=== PATIENT | female | born 2000 | race African-American/Black ===

== ENCOUNTER 2024-06-30 21:37 | Observation (INO) | payer OTHER, BC, SELFPAY ==
[2024-06-30 22:00] VITALS: TEMP 36.8
[2024-06-30 22:03] VITALS: BP 118/69; PULSE 95
== END 2024-06-30 22:50 | disposition home or self-care (01) ==
PROVIDERS: Admitting Provider Obstetrics & Gynecology; Visit Provider Obstetrics & Gynecology
DX: O26.893 Other specified pregnancy related conditions, third trimester (principal); R10.30 Lower abdominal pain, unspecified; Z3A.32 32 weeks gestation of pregnancy
CPT/HCPCS: 59025; G0378; G0379

== ENCOUNTER 2024-07-26 20:12 | Outpatient (REF) | payer OTHER, BC, SELFPAY ==
--- OUTSIDE RECORDS SUMMARY | 2024-07-26 20:17 | XMS_ITS | CCD ---
Author Organization [facility] Inform ion Partnership [facility] Care Team Providers Care Moth Exterminator Name Role Phone Unallocated , Noms Provider Primary Care Provi ga JUDITH ESQUIVEL Attending Unavailable JUDITH ESQUIVEL Referring Unavailable JUDITH ESQUIVEL Attending Unavailable JUDITH ESQUIVEL Attending Unavailable JUDITH ESQUIVEL Attending Unavailable JUDITH ESQUIVEL Attending Unavailable JUDITH ESQUIVEL Attending Unavailable WILBER STONE Attending Unavailable JUDITH ESQUIVEL Attending Unavailable WILBER STONE Attending Unavailable Medications Current Medications Medication Drug Class(es) Dates Sig (Normalized) Sig (Original) cephalexin 500 mg oral capsule (6 sources) Cephalosporin Antibacterial Start: 04-08-2024 End: 04-18-2024 cephalexin (Keflex) 500 MG capsule Indications: Leukocytes in urine Take 1 capsule (500 mg) by mouth in the morning and 1 capsule (500 mg) at noon and 1 capsule (500 mg) in the evening and 1 capsule (500 mg) before bedtime. Do all this for 10 days. 40 capsule 04/08/2024 04/18/2024 Active Start: 03-09-2024 End: 03-19-2024 cephalexin (Keflex) 500 MG c apsule Indications: Pyuria Take 1 capsule (500 mg) by mouth in the morning and 1 capsule (500 mg) at noon and 1 capsule (500 mg) in the evening and 1 capsule (500 mg) before bedtime. Do all this for 10 days. 40 capsule 03/09/2024 03/19/2024 Active Start: 02-02-2024 End: 02-12-2024 cephalexin (Keflex) 500 MG c apsule Indications: Urinary tract infection without hematuria, site unspecified Take 1 capsule (500 mg) by mouth in the morning and 1 capsule (500 mg) at noon and 1 capsule (500 mg) in the evening and 1 capsule (500 mg) before bedtime. Do all this for 10 days. 40 capsule 02/02/2024 02/12/2024 ferrous sulfate 325 mg delayed release oral tablet (11 sources) Start: 05-15-2024 End: 05-15-2025 take 1 tablet by mouth at mealtime ferrous sulfate (Fe Tabs) 325 (65 Fe) MG EC tablet Indications: Anemia, unspecified type Take 1 tablet (325 mg) by mouth in the morning. Take with meals. Do not crush, chew, or split.. 90 tablet 3 05/15/2024 05/15/2025 Active ondansetron 4 mg disintegrating oral tablet (20 sources) Serotonin-3 Receptor Antagonist Start: 05-11-2024 ondansetron ODT (Zofran-ODT) 4 MG disintegrating tablet Indications: Nausea and vomiting, unspecified vomiting type Take every 6-8 hours as needed for nausea. 30 tablet 3 05/11/2024 Active Start: 04-01-2024 ondansetron OD T (Zofran-ODT) 4 MG disintegrating tablet Indications: Nausea and vomiting, unspecified vomiting type Take every 6-8 hours as needed for nausea. 30 tablet 3 04/01/2024 Active Start: 02-24-2024 take 1 tablet by mckayla th every eight hours for nausea ondansetron ODT (Zofran-ODT) 4 MG disintegrating tablet Indications: 14 weeks gestation of , Poor weight gain (0-17) , Nausea and vomiting, unspecified vomiting type Take 1 tablet (4 mg) by mouth every 8 (eight) hours if needed for nausea or vomiting Sublingual 30 tablet 7 02/24/2024 Active Start: 02-02-2024 ondansetron OD T (Zofran-ODT) 4 MG disintegrating tablet Indications: Nausea and vomiting, unspecified vomiting type Take every 6-8 hours as needed for nausea. 30 tablet 3 02/02/2024 Active Start: 02-02-2024 End: 02-02-2024 take 1 tablet by mouth every eight hours for nausea ondansetron (Zofran) 4 MG tablet Indications: 11 weeks gestation of Take 1 tablet (4 mg) by mouth every 8 (eight) hours if needed for nausea 20 tablet 3 02/02/2024 02/02/2024 Discontinued (Therapy completed) Vit-Fe Fumarate-FA ( 19) 29-1 MG chewable tablet (20 sources) Start: 02-02-2024 Vit-F e Fumarate-FA ( 19) 29-1 MG chewable tablet Indications: 11 weeks gestation of , Encounter for supervision of normal first in first trimester Chew 1 tablet Daily Chewable, please dispense what insurance will cover 90 tablet 3 02/02/2024 Active Problems Active Problems Problem Classification Problem Date Documented Da te Episodic/Chronic Administrative/social admission (2 sources) First encounter by subject; Translations: [Persons encountering health services in other specified circumstances] 05-31-2024 Episodic Deficiency and other anemia (1 source) Anemia; Translations: [Anemia, unspecified] 05-15-2024 Episodic Genitourinary symptoms and ill-defined conditions (6 sources) Leukocytes in urine; Translations: [Other abnormal findings in urine] 04-08-2024 Episodic Immunizations and screening for infectious disease (14 sources) Patient encounter status; Translations: [Encounter for screening for diabetes mellitus] 05-04-2024 Episodic Nausea and vomiting (12 sources) Nausea and vomiting; Translations: [Nausea with vomiting, unspecified] 04-08-2024 Episodic Other nutritional; endocrine; and metabolic disorders (10 sources) Childhood failure to gain weight; Translations: [Failure to thrive (child)] 04-07-2024 Episodic Other and delivery including normal (18 sources) Second trimester ; Translations: [Encounter for supervision of normal , unspecified, second trimester] 04-07-2024 Episodic Residual codes; unclassified (2 sources) Gestation period, 20 weeks; Translations: [20 weeks gestation of ] 04-07-2024 Episodic Residual codes; unclassified (2 sources) Gestation period, 24 weeks; Translations: [24 weeks gestation of ] 05-04-2024 Episodic Residual codes; unclassified (2 sources) Gestation period, 26 weeks; Translations: [26 weeks gestation of ] 05-19-2024 Episodic Residual codes; unclassified (2 sources) Gestation period, 28 weeks; Translations: [28 weeks gestation of ] 05-31-2024 Episodic Residual codes; unclassified (2 sources) Gestation period, 34 weeks; Translations: [34 weeks gestation of ] 07-12-2024 Episodic Past or Other Problems Problem Classification Problem Date Documented Da te Episodic/Chronic Diabetes mellitus without complication (2 sources) Ketonuria; Translations: [Acetonuria] 02-24-2024 Episodic Residual codes; unclassified (2 sources) Gestation period, 14 weeks; Translations: [14 weeks gestation of ] 02-23-2024 Episodic Residual codes; unclassified (2 sources) Gestation period, 11 weeks; Translations: [11 weeks gestation of ] 02-02-2024 Episodic Residual codes; unclassified (2 sources) Gestation period, 18 weeks; Translations: [18 weeks gestation of ] 02-02-2024 Episodic Residual codes; unclassified (2 sources) Gestation period, 16 weeks; Translations: [16 weeks gestation of ] 03-09-2024 Episodic Urinary tract infections (2 sources) Urinary tract infectious disease; Translations: [Urinary tract infection, site not specified] 02-02-2024 Episodic Results Test Name Value Interpretation Reference Range Facility Urinalysis macro (dipstick) panel (U)on 07-12-2024 Bilirubin, UA Negative Negative - 4(70) +++ mg/dL [facility] Blood, UA Negative Negative - 50 Choco/mcL [facility] Clarity, UA Clear [facility] Color, UA Yellow [facility] Glucose, UA Negative Negative - 1999(110) ++++ mg/dL [facility] Interpretation and review of laboratory results Abnormal [facility] Ketones, UA Negative Negative - 160(16) ++++ mg/dL [facility] Leukocytes, UA Positive Negative - 500+++ Abhishek/mcL [facility] Nitrite, UA Negative Negative - Positive [facility] pH, UA 7 5 - 9 [facility] Protein, UA Positive Negative - 2000(20) ++++ mg/dL [facility] Spec Grav, UA 1.025 1 - 1.03 [facility] Urobilinogen, UA 0.2 0.2 - 12 mg/dL [facility] Urinalysis macro (dipstick) panel (U)Ordered By: Cathy Ferreira on 05-19-2024 Bilirubin, UA Negative Negative - 4(70) +++ mg/dL [facility] Blood, UA Negative Negative - 50 Choco/mcL [facility] Clarity, UA Clear [facility] Color, UA Yellow [facility] Glucose, UA Negative Negative - 1999(110) ++++ mg/dL [facility] Interpretation and review of laboratory results Abnormal [facility] Ketones, UA Negative Negative - 160(16) ++++ mg/dL [facility] Leukocytes, UA Positive Negative - 500+++ Abhishek/mcL [facility] Nitrite, UA Negative Negative - Positive [facility] pH, UA 7.5 5 - 9 [facility] Protein, UA Negative Negative - 1999(20) ++++ mg/dL [facility] Spec Grav, UA 1.01 1 - 1.03 [facility] Urobilinogen, UA 1.0 0.2 - 12 mg/dL [facility] Urinalysis macro (dipstick) panel (U)on 05-04-2024 Bilirubin, UA Negative Negative - 4(70) +++ mg/dL [facility] Blood, UA Negative Negative - 50 Choco/mcL [facility] Clarity, UA Clear [facility] Color, UA Yellow [facility] Glucose, UA Negative Negative - 1999(110) ++++ mg/dL [facility] Interpretation and review of laboratory results Normal [facility] Ketones, UA Negative Negative - 160(16) ++++ mg/dL [facility] Leukocytes, UA Positive Negative - 500+++ Abhishek/mcL [facility] Nitrite, UA Negative Negative - Positive [facility] pH, UA 8 5 - 9 [facility] Protein, UA Negative Negative - 1999(20) ++++ mg/dL [facility] Spec Grav, UA 1.005 1 - 1.03 [facility] Urobilinogen, UA 1.0 0.2 - 12 mg/dL [facility] Urinalysis macro (dipstick) panel (U)on 04-08-2024 Bilirubin, UA Negative Negative - 4(70) +++ mg/dL [facility] Blood, UA Negative Negative - 50 Choco/mcL [facility] Clarity, UA Clear [facility] Color, UA Yellow [facility] Glucose, UA Negative Negative - 1999(110) ++++ mg/dL [facility] Interpretation and review of laboratory results Abnormal [facility] Ketones, UA Negative Negative - 160(16) ++++ mg/dL [facility] Leukocytes, UA Positive Negative - 500+++ Abhishek/mcL [facility] Nitrite, UA Negative Negative - Positive [facility] pH, UA 8.5 5 - 9 [facility] Protein, UA Negative Negative - 1999(20) ++++ mg/dL [facility] Spec Grav, UA 1.015 1 - 1.03 [facility] Urobilinogen, UA 1.0 0.2 - 12 mg/dL [facility] Urinalysis macro (dipstick) panel (U)Ordered By: Cathy Ferreira on 03-09-2024 Bilirubin, UA Negative Negative - 4(70) +++ mg/dL [facility] Blood, UA Negative Negative - 50 Choco/mcL [facility] Clarity, UA Clear [facility] Color, UA Yellow [facility] Glucose, UA Negative Negative - 1999(110) ++++ mg/dL [facility] Interpretation and review of laboratory results Abnormal [facility] Ketones, UA Negative Negative - 160(16) ++++ mg/dL [facility] Leukocytes, UA Positive Negative - 500+++ Abhishek/mcL [facility] Nitrite, UA Negative Negative - Positive [facility] pH, UA 8.5 5 - 9 [facility] Protein, UA Negative Negative - 1999(20) ++++ mg/dL [facility] Healthcare Spec Grav, UA 1.005 1 - 1.03 [facility] Urobilinogen, UA 1.0 0.2 - 12 mg/dL [facility] Urinalysis macro (dipstick) panel (U)on 02-24-2024 Bilirubin, UA Negative Negative - 4(70) +++ mg/dL [facility] Blood, UA Negative Negative - 50 Choco/mcL [facility] Healthcare Clarity, UA Clear [facility] Color, UA Yellow [facility] Glucose, UA Negative Negative - 1999(110) ++++ mg/dL [facility] Interpretation and review of laboratory results Abnormal [facility] Ketones, UA Negative Negative - 160(16) ++++ mg/dL [facility] Leukocytes, UA Positive Negative - 500+++ Abhishek/mcL [facility] Nitrite, UA Negative Negative - Positive [facility] pH, UA 8.0 5 - 9 [facility] Protein, UA Negative Negative - 1999(20) ++++ mg/dL [facility] Spec Grav, UA 1.010 1 - 1.03 [facility] Urobilinogen, UA 1.0 0.2 - 12 mg/dL [facility] Laboratory - Cytologyon Tent Assembler Cyto stain Nom (Cvx/Vag) [ID] [facility] Comment on above: CMB, CT(ASCP) CT Scr eening Location: [facility], [address] [place] [address] Cytology study comment Cyto stain Saravanan (Cvx/Vag) [Interp] [facility] Comment on above: This Pap test has be en evaluated with computer assisted technology. Microscopic observation Cyto stain Nom (Cvx) [facility] Comment on above: Cytology Results: Ne gative for intraepithelial lesion or malignancy. Specimen source Cyto stain N om (Cvx/Vag) [facility] Comment on above: None given Statement of adequacy Cyto stain (Cvx/Vag) [Interp] [facility] Comment on above: Satisfactory for vicente luation. Endocervical/transformation zone component absent. Laboratory - Microbiology an d Antimicrobial susceptibilityon 02-03-2024 HPV E6+E7 mRNA NITHYA+probe Ql (Cvx) Not detected Not Detected [facility] Comment on above: Methodology: Transcr iption-Mediated Amplification This assay detects E6/E7 viral messenger RNA (mRNA) from 14 high-risk HPV types (16,18,31,33,35,39,45,51,52,56,58,59,66,68). Cervical sources are required for HPV testing. If a vaginal source from a patient who has had a total hysterectomy with removal of cervix was submitted, please contact the testing laboratory for alternative testing options. For additional information, please refer to http://education.Heart [facility]/faq/[email or web address] (This link if provided for information/ educational purposes only.) No Panel Informationon 02-02 (ALWAYS MESSAGE) [facility] Comment on above: EXPLANATORY NOTE: The Pap is a screening test for cervical cancer. It is not a diagnostic test and is subject to false negative and false positive results. It is most reliable when a satisfactory sample, regularly obtained, is submitted with relevant clinical findings and history, and when the Pap result is evaluated along with historic and current clinical information. Clinical information [facility] Comment on above: None given Date of previous biopsy [facility] Comment on above: None given Date of previous PAP smear [facility] Comment on above: None given Last menstrual period start date [facility] Comment on above: None given Performing Organization Information Site ID: [id number] Name: [facility] Address: [place] [place] , [address] [place] [id number] Director: Ketan Sutherland MD [facility] Drugs of abuse panel Screen (U)on 02-02-2024 Amphetamines Ql (U) Negative [facility] Barbiturates Ql (U) Negative [facility] Benzodiazepines Ql (U) Negative NO [facility] Benzoylecgonine Ql (U) Negative NO [facility] Carboxy tetrahydrocannabinol (Mec) [Mass/Mass] Negative [facility] Interpretation and review of laboratory results Normal [facility] Methadone (U) [Mass/Vol] Negative [facility] Methylenedioxymethamphetamin e Screen Ql (U) Negative [facility] Morphine (U) [Mass/Vol] Negative [facility] Opiates Ql (U) Negative [facility] oxyCODONE Ql (U) Negative [facility] Phencyclidine Ql (U) Negative [facility] Reference Lab Test ID Negative [facility] Tricyclic antidepressants [Mass/Vol] Negative [facility] Laboratory - Specimen inform ationon 02-02-2024 Specimen type Nom (Spec) swab [facility] No Panel Informationon 02-01 GONORRHOEAE DNA(PCR) Negative [facility] Interpretation and review of laboratory results Normal [facility] Urinalysis macro (dipstick) panel (U)Ordered By: Cathy Ferreira on 02-02-2024 Bilirubin, UA Negative Negative - 4(70) +++ mg/dL [facility] Blood, UA Negative Negative - 50 Choco/mcL [facility] Clarity, UA Clear [facility] Color, UA Yellow [facility] Glucose, UA Negative Negative - 1999(110) ++++ mg/dL [facility] Interpretation and review of laboratory results Abnormal [facility] Ketones, UA Positive Negative - 160(16) ++++ mg/dL [facility] Leukocytes, UA Positive Negative - 500+++ Abhishek/mcL [facility] Nitrite, UA Negative Negative - Positive [facility] pH, UA 6.5 5 - 9 [facility] Protein, UA Negative Negative - 1999(20) ++++ mg/dL [facility] Spec Grav, UA 1.025 1 - 1.03 [facility] Urobilinogen, UA 1.0 0.2 - 12 mg/dL [facility] Vital Signs Date Time Vital Sign Value Performing Clinician Jesusi lity 07-12-2024 14:28-0500 Body mass index (BMI) [Ratio] 35.08 kg/m2 Wilber Bertha DO Work Phone: [facility] 07-12-2024 14:28-0500 Body weight 101.61 kg Wilber Bertha DO Work Phone: [facility] 07-12-2024 14:28-0500 Diastolic blood pressure 74 mm[Hg] Wilber Bertha DO Work Phone: [facility] 07-12-2024 14:28-0500 Systolic blood pressure 122 mm[Hg] Wilber Bertha DO Work Phone: [facility] 05-19-2024 14:36-0500 Body mass index (BMI) [Ratio] 32.73 kg/m2 Judith Esquivel MD Work Phone: [facility] 05-19-2024 14:36-0500 Body weight 94.8 kg Judith Esquivel MD Work Phone: [facility] 05-19-2024 14:36-0500 Diastolic blood pressure 60 mm[Hg] Judith Esquivel MD Work Phone: [facility] 05-19-2024 14:36-0500 Systolic blood pressure 98 mm[Hg] Judith Esquivel MD Work Phone: [facility] 05-04-2024 16:26-0500 Body mass index (BMI) [Ratio] 32.42 kg/m2 Judith Esquivel MD Work Phone: [facility] 05-04-2024 16:26-0500 Body weight 93.89 kg Judith Esquivel MD Work Phone: [facility] 05-04-2024 16:26-0500 Diastolic blood pressure 58 mm[Hg] Judith Esquivel MD Work Phone: [facility] 05-04-2024 16:26-0500 Systolic blood pressure 100 mm[Hg] Judith Esquivel MD Work Phone: [facility] 04-08-2024 08:23-0400 Body mass index (BMI) [Ratio] 30.85 kg/m2 Judith Esquivel MD Work Phone: [facility] 04-08-2024 08:23-0400 Body weight 89.36 kg Judith Esquivel MD Work Phone: [facility] 04-08-2024 08:23-0400 Diastolic blood pressure 62 mm[Hg] Judith Esquivel MD Work Phone: [facility] 04-08-2024 08:23-0400 Systolic blood pressure 100 mm[Hg] Judith Esquivel MD Work Phone: [facility] 03-09-2024 08:53-0400 Body mass index (BMI) [Ratio] 29.76 kg/m2 Judith Esquivel MD Work Phone: [facility] 03-09-2024 08:53-0400 Body weight 86.18 kg Judith Esquivel MD Work Phone: [facility] 03-09-2024 08:53-0400 Diastolic blood pressure 60 mm[Hg] Judith Esquivel MD Work Phone: [facility] 03-09-2024 08:53-0400 Systolic blood pressure 100 mm[Hg] Judith Esquivel MD Work Phone: [facility] 02-24-2024 09:01-0400 Body mass index (BMI) [Ratio] 29.44 kg/m2 Judith Esquivel MD Work Phone: [facility] 02-24-2024 09:01-0400 Body weight 85.28 kg Judith Esquivel MD Work Phone: [facility] 02-24-2024 09:01-0400 Diastolic blood pressure 58 mm[Hg] Judith Esquivel MD Work Phone: [facility] 02-24-2024 09:01-0400 Systolic blood pressure 98 mm[Hg] Judith Esquivel MD Work Phone: [facility] 02-02-2024 13:15-0400 Body height 170.2 cm Judith Esquivel MD Work Phone: [facility] 02-02-2024 12:55-0400 Body mass index (BMI) [Ratio] 29.76 kg/m2 Judith Esquivel MD Work Phone: [facility] 02-02-2024 12:55-0400 Body weight 86.18 kg Judith Esquivel MD Work Phone: [facility] 02-02-2024 12:55-0400 Diastolic blood pressure 68 mm[Hg] Judith Esquivel MD Work Phone: [facility] 02-02-2024 12:55-0400 Systolic blood pressure 108 mm[Hg] Judith Esquivel MD Work Phone: [facility] Healthcare Encounters Encounter Date Encounter Type Care Provider Facility Start: 07-26-2024 End: 07-26-2024 Bamboo flowsheet Wilber Bertha DO Work Phone: [facility] Start: 07-26-2024 End: 07-26-2024 Bamboo flowsheet Wilber Bertha DO Work Phone: [facility] Start: 07-12-2024 End: 07-12-2024 Bamboo flowsheet Wilber Bertha DO Work Phone: [facility] Start: 07-12-2024 End: 07-12-2024 Bamboo flowsheet Wilber Bertha DO Work Phone: [facility] Start: 07-12-2024 End: 07-12-2024 flow sheet Wilber Bertha DO Work Phone: [facility] Comment on above: 34 weeks gestation o f ; Third trimester Start: 07-12-2024 End: 07-12-2024 ambulatory WILBER BERTHA Not Available Start: 06-28-2024 End: 06-28-2024 Bamboo flowsheet Mariya JIANG Work Phone: [facility] Start: 06-28-2024 End: 06-28-2024 Bamboo flowsheet Mariya JIANG Work Phone: [facility] Start: 06-10-2024 End: 06-10-2024 ambulatory JUDITH ESQUIVEL Not Available Start: 06-10-2024 End: 06-10-2024 ambulatory JUDITH ESQUIVEL Not Available Start: 05-31-2024 End: 05-31-2024 Bamboo flowsheet Wilber Bertha DO Work Phone: [facility] Start: 05-31-2024 End: 05-31-2024 Bamboo flowsheet Wilber Bertha DO Work Phone: [facility] Start: 05-31-2024 End: 05-31-2024 flow sheet Wilber Bertha DO Work Phone: [facility] Comment on above: Encounter to [facility]; 28 weeks gestation of ; Third trimester Start: 05-31-2024 End: 05-31-2024 ambulatory WILBER BERTHA Not Available Start: 05-19-2024 End: 05-19-2024 flow sheet Judith Esquivel MD Work Phone: [facility] Comment on above: 26 weeks gestation o f ; Second trimester ; Poor weight gain (0-17); Nausea and vomiting, unspecified vomiting type Start: 05-19-2024 End: 05-19-2024 ambulatory JUDITH ESQUIVEL Not Available Start: 05-15-2024 End: 05-15-2024 Orders Only Judith Esquivel MD Work Phone: [facility] Comment on above: Anemia, unspecified type (Primary Dx) Start: 05-04-2024 End: 05-04-2024 flow sheet Judith Esquivel MD Work Phone: [facility] Comment on above: 24 weeks gestation o f ; Second trimester ; Poor weight gain (0-17); Nausea and vomiting, unspecified vomiting type; Screening for diabetes mellitus (DM); Leukocytes in urine Start: 05-04-2024 End: 05-04-2024 ambulatory JUDITH ESQUIVEL Not Available Start: 05-04-2024 End: 05-04-2024 Bamboo flowsja Esquivel MD Work Phone: [facility] Start: 05-04-2024 End: 05-04-2024 Bamboo esdras Esquivel MD Work Phone: [facility] Start: 04-08-2024 End: 04-08-2024 Bamboo flowsja Esquivel MD Work Phone: [facility] Start: 04-08-2024 End: 04-08-2024 Bamboo flowsja Esquivel MD Work Phone: [facility] Start: 04-08-2024 End: 04-08-2024 flow sheet Judith Esquivel MD Work Phone: [facility] Comment on above: 20 weeks gestation o f ; Second trimester ; Poor weight gain (0-17); Nausea and vomiting, unspecified vomiting type; Leukocytes in urine Start: 04-08-2024 End: 04-08-2024 ambulatory JUDITH ESQUIVEL Not Available Start: 04-05-2024 End: 04-05-2024 ambulatory JUDITH ESQUIVEL Not Available Start: 03-09-2024 End: 03-09-2024 Apolloboo esdras Esquivel MD Work Phone: [facility] Start: 03-09-2024 End: 03-09-2024 Bamboo flowsja Esquivel MD Work Phone: [facility] Start: 03-09-2024 End: 03-09-2024 flow sheet Judith Esquivel MD Work Phone: [facility] Comment on above: Pyuria (Primary Dx); 16 weeks gestation of ; Second trimester ; Poor weight gain (0-17); Nausea and vomiting, unspecified vomiting type; care, subsequent in first trimester; Screening for genetic disease carrier status Start: 03-09-2024 End: 03-09-2024 ambulatory JUDITH ESQUIVEL Not Available Start: 02-27-2024 End: 02-27-2024 ambulatory PENOLA SIERRA Not Available Start: 02-24-2024 End: 02-24-2024 Bamboo flowsheet Judith Esuqivel MD Work Phone: [facility] Start: 02-24-2024 End: 02-24-2024 Bamboo flowsja Esquivel MD Work Phone: [facility] Start: 02-24-2024 End: 02-24-2024 flow sheet Judith Esquivel MD Work Phone: [facility] Comment on above: Poor weight gain (0- 17) (Primary Dx); 14 weeks gestation of ; Second trimester ; Ketonuria; Nausea and vomiting, unspecified vomiting type Start: 02-24-2024 End: 02-24-2024 ambulatory JUDITH ESQUIVEL Not Available Start: 02-02-2024 End: 02-02-2024 Initial care visit Judith Esquivel MD Work Phone: [facility] Comment on above: GA: 11w1d Start: 02-02-2024 End: 02-02-2024 ambulatory JUDITH ESQUIVEL Not Available Start: 01-23-2024 End: 01-23-2024 ambulatory JUDITH ESQUIVEL Not Available Start: 01-09-2024 End: 01-09-2024 ambulatory JUDITH ESQUIVEL Not Available Procedures Date Procedure Procedure Detail Performing Clinician Start: 07-12-2024 Urnls dip stick/tabl et rgnt non-auto w/o micrscp Wilber Stone DO Work Phone: Start: 05-19-2024 Urnls dip stick/tabl et rgnt non-auto w/o micrscp Judith Esquivel MD Work Phone: Start: 05-04-2024 Urnls dip stick/tabl et rgnt non-auto w/o micrscp Judith Esquivel MD Work Phone: Start: 04-08-2024 Urnls dip stick/tabl et rgnt non-auto w/o micrscp Judith Esquivel MD Work Phone: Start: 03-09-2024 Urnls dip stick/tabl et rgnt non-auto w/o micrscp Judith Esquivel MD Work Phone: Start: 02-24-2024 Urnls dip stick/tabl et rgnt non-auto w/o micrscp Judith Esquivel MD Work Phone: Start: 02-02-2024 Chlamydia culture Olga Esquivel MD Work Phone: Start: 02-02-2024 Iadna chlamydia trachomatis amplified probe tq Judith Esquivel MD Work Phone: Start: 02-02-2024 Drug test prsmv read direct optical obs pr date Judith Esquivel MD Work Phone: Start: 02-02-2024 Urnls dip stick/tabl et rgnt non-auto w/o micrscp Judith Esquivel MD Work Phone: Start: 02-02-2024 THINPREP TIS PAP AND HPV MRNA E6/E7 Judith Esquivel MD Work Phone: Plan of Treatment Date Care Activity Detail Author Start: 07-26-2024 End: 07-26-2024 Patient encounter procedure 07/26/2024 1:00 PM EST Routine [facility] [address] [place] [id number] Wilber Stone DO [address] [place] [address] [facility] Start: 07-12-2024 End: 07-12-2024 Patient encounter procedure [facility] Comment on above: Arrived Start: 06-10-2024 End: 06-10-2024 Patient encounter procedure 06/10/2024 2:00 PM EST Routine [facility] [address] [place] [address] Judith Esquivel MD [address] [place] [address] [facility] Start: 06-10-2024 End: 06-10-2024 Professional / ancillary services management 06/10/2024 1:15 PM EST Ancillary Procedure [facility] [address] [place] [address] [facility] Start: 05-31-2024 End: 05-31-2024 Patient encounter procedure [facility] Comment on above: Arrived Start: 05-19-2024 End: 05-19-2024 Patient encounter procedure 05/19/2024 2:15 PM EST Routine [facility] [address] [place] [address] Judith Esquivel MD [address] [place] [address] [facility] Start: 05-19-2024 End: 05-19-2024 Professional / ancillary services management 05/19/2024 1:15 PM EST Ancillary Procedure [facility] [address] [place] [phone] [facility] Start: 05-04-2024 End: 05-04-2024 Patient encounter procedure [facility] Comment on above: 24 weeks gestation o f ; Second trimester ; Poor weight gain (0-17); Nausea and vomiting, unspecified vomiting type; Screening for diabetes mellitus (DM) Start: 04-08-2024 End: 04-08-2024 Patient encounter procedure 04/08/2024 8:15 AM EDT Routine [facility] [address] [place] [address] Judith Esquivel MD [address] [place] [address] 20 weeks gestation of ; Second trimester ; Poor weight gain (0-17) [facility] Comment on above: 20 weeks gestation o f ; Second trimester ; Poor weight gain (0-17) Start: 04-05-2024 End: 04-05-2024 Patient encounter procedure 04/05/2024 8:45 AM EDT Routine [facility] [address] [place] [address] Judith Esquivel MD [address] [facility] [place] [address] [facility] Start: 04-05-2024 End: 04-05-2024 Professional / ancillary services management 04/05/2024 8:00 AM EDT Ancillary Procedure [facility] [address] [facility] [place] [address] [facility] Start: 03-09-2024 End: 03-09-2025 Inheritest(R) Core Panel Inheritest(R) Core Panel Lab Routine care, subsequent in first trimester Screening for genetic disease carrier status Expected: 03/09/2024 (Approximate), Expires: 03/09/2025 [facility] Work Phone: Comment on above: Expected: 03/09/2024 (Approximate), Expires: 03/09/2025 Start: 03-09-2024 End: 03-09-2025 Maternity 21 Maternity 21 Lab Routine care, subsequent in first trimester Screening for genetic disease carrier status Expected: 03/09/2024 (Approximate), Expires: 03/09/2025 [facility] Comment on above: Expected: 03/09/2024 (Approximate), Expires: 03/09/2025 Start: 03-09-2024 End: 03-09-2024 Patient encounter procedure [facility] Comment on above: 16 weeks gestation o f ; Second trimester ; Poor weight gain (0-17); Nausea and vomiting, unspecified vomiting type Start: 02-29-2024 Influenza vaccination Influenza Vacc ine (#1) [facility] Start: 02-27-2024 End: 02-27-2024 Professional / ancillary services management 02/27/2024 8:00 AM EDT Ancillary Procedure [facility] [address] [facility] [place] [id number] [facility] Start: 02-24-2024 End: 02-24-2024 Patient encounter procedure 02/24/2024 8:45 AM EDT Routine [facility] [address] [facility] [place] [phone] Judith Esquivel MD [address] [facility] [address] [place] [address] 14 weeks gestation of ; Second trimester [facility] Comment on above: 14 weeks gestation o f ; Second trimester Bacteria identified in Urine by Culture Urine culture Microbiology Routine 20 weeks gestation of Second trimester Leukocytes in urine Ordered: 04/08/2024 [facility] Work Phone: Comment on above: Ordered: 04/08/2024 Bacteria identified in Urine by Culture Urine culture Microbiology Routine 24 weeks gestation of Second trimester Leukocytes in urine Ordered: 05/04/2024 [facility] Comment on above: Ordered: 05/04/2024 Hemoglobin [Mass/volume] in Blood Hemoglobin and hematocrit, blood Lab Routine Screening for diabetes mellitus (DM) Ordered: 05/04/2024 [facility] Work Phone: Comment on above: Ordered: 05/04/2024 Hemoglobin A1c/Hemoglobin.total in Blood Hemoglobin A1c Lab Routine 34 weeks gestation of Ordered: 07/12/2024 [facility] Work Phone: Comment on above: Ordered: 07/12/2024 Hepatitis C virus Ab [Presence] in Serum or Plasma by Immunoassay Hepatitis C antibody Lab Routine 34 weeks gestation of Ordered: 07/12/2024 [facility] Comment on above: Ordered: 07/12/2024 Measurement of gluco se 1 hour after glucose challenge for glucose tolerance test Glucose tolerance, 1 hour Lab Routine Screening for diabetes mellitus (DM) Ordered: 05/04/2024 [facility] Comment on above: Ordered: 05/04/2024 QHERIT(TM) EXPANDED CARRIER SCREEN QHERIT(TM) EXPANDED CARRIER SCREEN Lab Routine Screening for genetic disease carrier status Ordered: 02/02/2024 [facility] Comment on above: Ordered: 02/02/2024 QNATAL(R) ADVANCED QNATAL(R) ADV ANCED Lab Routine 18 weeks gestation of Screening for chromosomal anomalies by amniocentesis Ordered: 02/02/2024 [facility] Work Phone: Comment on above: Ordered: 02/02/2024 Payers Date Payer Category Payer Private Health Insurance [employer] [id number] 2023 Private Health Insurance [id number] 2020 [facility] BCBS [id number] [id number] 2020 Unknown BCBS BCBS [id number] 2020-Present [phone] [address] [place] [address] [id number] 2020 Unknown [id number] 1999 Unknown [id number] 79.2.1259 1999 Unknown [id number] [id number] 79.2.1259 1999 Unknown [id number] 2.16.840.1.465713.3.5 79.2.1259 1999 Unknown [id number] 2.16.840.1.214646.3.5 79.2.1258 1999 Unknown [id number] 2.16.840.1.244119.3.5 79.2.1259 1999 Unknown [id number] 2.16.840.1.078735.3.5 79.2.1258 1999 Unknown [id number] 2.16.840.1.892378.3.5 79.2.1258 1999 Unknown [id number] 2.16.840.1.500099.3.5 79.2.1258 1999 Unknown [id number] 2.16.840.1.661518.3.5 79.2.1258 1999 Unknown [id number] 2.16.840.1.035754.3.5 79.2.1258 1999 Unknown [id number] 2.16.840.1.744389.3.5 79.2.1258 1999 Unknown [id number] 2.16.840.1.715158.3.5 79.2.1258 1999 Unknown [id number] 2.16.840.1.973375.3.5 79.2.1258 1999 Unknown [id number] 2.16.840.1.481094.3.5 79.2.1258 1999 Unknown [id number] [id number] 79.2.1259 Social History Date Type Detail Facility Start: 01-09-2024 Tobacco smoking stat [facility] Never smoked tobacco [facility] Start: 01-09-2024 Tobacco use and exposure Smokeless t obacco non-user [facility] Start: 01-09-2024 End: 05-31-2024 Alcoholic beverage intake Ex-drinker (finding) [facility] Start: 01-09-2024 History of Social function [facility] Start: 01-09-2024 Tobacco use panel [facility] Start: 01-09-2024 Alcohol Comment caffeine intak e: occasionally [facility] Start: 11-30-2023 [facility] Start: 2000 Sex assigned at Not on file [facility] Clinical Notes 02-02-2024 to 07-12-2024 Marcella Haletico, [employer]ER [employer] - 07/12/2024 1:50 PM Reji Hernandez, JANNA - 05/31/2024 8:30 AM Andrew Esquivel MD - 05/19/2024 2:15 PM Andrew Esquivel MD - 05/15/2024 4:45 PM EST Note Date & Type Note Facility 07-12-2024 History of Presen t illness Narrative Reason for Appointment: Patient ID: Brigette Esquivel is a 23 y.o. female who presents for Routine Visit Patient presents today for Return OB appointment. MEDICATIONS Current Outpatient Medications Medication Instructions ferrous sulfate (FE TABS) 325 mg, Oral, Daily with breakfast, Do not crush, chew, or split. ondansetron ODT (Zofran-ODT) 4 MG disintegrating tablet Take every 6-8 hours as needed for nausea. Vit-Fe Fumarate-FA ( 19) 29-1 MG chewable tablet 1 tablet, Oral, Daily, Chewable, please dispense what insurance will cover ALLERGIES No Known Allergies PROBLEMS Active Ambulatory Problems Diagnosis Date Noted No Active Ambulatory Problems Resolved Ambulatory Problems Diagnosis Date Noted No Resolved Ambulatory Problems Past Medical History: Diagnosis Date Generalized anxiety disorder with panic attacks (CMS/HCC) Vaccine for VZV (varicella-zoster virus) HISTORY PAST MEDICAL HISTORY SOCIAL HISTORY Past Medical History: Diagnosis Date Generalized anxiety disorder with panic attacks (CMS/HCC) Vaccine for VZV (varicella-zoster virus) Social History Tobacco Use Smoking status: Never Smokeless tobacco: Never Vaping Use Vaping status: Never Used Substance Use Topics Alcohol use: Not Currently Comment: caffeine intake: occasionally Drug use: Not Currently Types: Marijuana Comment: stopped a couple months prior to per patient FAMILY HISTORY Family History Problem Relation Name Age of Onset Colon cancer Maternal Grandfather Genetic Disease Carrier Nephew sickle cell anemia SURGICAL HISTORY Past Surgical History: Procedure Laterality Date WISDOM TOOTH EXTRACTION 2018 bottom, 2020 top REVIEW OF SYSTEMS Review of Systems: Review of Systems All other systems reviewed and are negative. OBJECTIVE Objective: Physical Exam Constitutional: Appearance: Normal appearance. She is well-developed. Cardiovascular: Rate and Rhythm: Normal rate and regular rhythm. Pulmonary: Effort: Pulmonary effort is normal. Breath sounds: Normal breath sounds. Abdominal: General: Bowel sounds are normal. There is no distension. Palpations: Abdomen is soft. Tenderness: There is no abdominal tenderness. There is no guarding or rebound. Musculoskeletal: General: No swelling. Normal range of motion. Right lower leg: No edema. Left lower leg: No edema. Neurological: Mental Status: She is alert and oriented to person, place, and time. Skin: General: Skin is warm and dry. Psychiatric: Mood and Affect: Mood normal. Behavior: Behavior normal. Vitals and nursing note reviewed. Exam conducted with a energy efficiency finance manager present. Vitals: Estimated body mass index is 35.08 kg/m as calculated from the following: Height as of 24: 5' 7 . Weight as of this encounter: 224 lb. BP: 122/74 Patient's last menstrual period was 11/16/2023. ASSESSMENT & PLAN ICD-10-CM 1. 34 weeks gestation of Z3A.34 POCT urinalysis dipstick manually resulted Hemoglobin A1c Hepatitis C antibody 2. Third trimester Z34.93 Patient presents today for a routine obstetrics appointment. Patient is currently 34w1d with a Estimated Date of Delivery: 08/22/24. Patient to return to clinic in 1-2 weeks. Documented by Marcella Collier LPN on behalf of: Wilber Stone DO documented in this encounter [facility] 05-31-2024 History of Presen t illness Narrative Reason for Appointment: Patient ID: Brigette Esquivel is a 23 y.o. female who presents for Establish Care Patient presents today for to meet Dr Stone and Return OB appointment. MEDICATIONS Current Outpatient Medications Medication Instructions ferrous sulfate (FE TABS) 325 mg, Oral, Daily with breakfast, Do not crush, chew, or split. ondansetron ODT (Zofran-ODT) 4 MG disintegrating tablet Take every 6-8 hours as needed for nausea. Vit-Fe Fumarate-FA ( 19) 29-1 MG chewable tablet 1 tablet, Oral, Daily, Chewable, please dispense what insurance will cover ALLERGIES No Known Allergies PROBLEMS Active Ambulatory Problems Diagnosis Date Noted No Active Ambulatory Problems Resolved Ambulatory Problems Diagnosis Date Noted No Resolved Ambulatory Problems Past Medical History: Diagnosis Date Generalized anxiety disorder with panic attacks (CMS/HCC) Vaccine for VZV (varicella-zoster virus) HISTORY PAST MEDICAL HISTORY SOCIAL HISTORY Past Medical History: Diagnosis Date Generalized anxiety disorder with panic attacks (CMS/HCC) Vaccine for VZV (varicella-zoster virus) Social History Tobacco Use Smoking status: Never Smokeless tobacco: Never Vaping Use Vaping status: Never Used Substance Use Topics Alcohol use: Not Currently Comment: caffeine intake: occasionally Drug use: Not Currently Types: Marijuana Comment: stopped a couple months prior to per patient FAMILY HISTORY Family History Problem Relation Name Age of Onset Colon cancer Maternal Grandfather Genetic Disease Carrier Nephew sickle cell anemia SURGICAL HISTORY Past Surgical History: Procedure Laterality Date WISDOM TOOTH EXTRACTION 2018 bottom, 2020 top REVIEW OF SYSTEMS Review of Systems: Review of Systems Constitutional: Negative. HENT: Negative. Eyes: Negative. Respiratory: Negative. Cardiovascular: Negative. Gastrointestinal: Negative. Genitourinary: Negative. Musculoskeletal: Negative. Skin: Negative. Neurological: Negative. All other systems reviewed and are negative. Hematological: Negative. Endocrine: Negative. Allergic/Immunologic: Negative. OBJECTIVE Objective: Physical Exam Constitutional: Appearance: Normal appearance. She is well-developed. Cardiovascular: Rate and Rhythm: Normal rate and regular rhythm. Pulmonary: Effort: Pulmonary effort is normal. Breath sounds: Normal breath sounds. Abdominal: General: Bowel sounds are normal. There is no distension. Palpations: Abdomen is soft. Tenderness: There is no abdominal tenderness. There is no guarding or rebound. Musculoskeletal: General: No swelling. Normal range of motion. Right lower leg: No edema. Left lower leg: No edema. Neurological: Mental Status: She is alert and oriented to person, place, and time. Skin: General: Skin is warm and dry. Psychiatric: Mood and Affect: Mood normal. Behavior: Behavior normal. Vitals and nursing note reviewed. Exam conducted with a energy efficiency finance manager present. Vitals: Estimated body mass index is 32.73 kg/m as calculated from the following: Height as of 02/02/24: 5' 7 . Weight as of 11/20/24: 209 lb. BP: Patient's last menstrual period was 11/16/2023. ASSESSMENT & PLAN ICD-10-CM 1. Encounter to establish care Z76.89 2. 28 weeks gestation of Z3A.28 3. Third trimester Z34.93 Pt presents to meet Dr Stone, pt is 28 weeks at this time. All questions answered. Pt is deciding whether to come to [place] or [facility] for delivery- advised pt if she wants to deliver with Dr Stone transfer to our office at 32 weeks. Pt voiced understanding. Documented by Jana Hernandez LPN on behalf of: Wilber Stone DO documented in this encounter [facility] 05-19-2024 History of Presen t illness Narrative Subjective Brigette Esquivel is a 23 y.o. at 26w3d with a working estimated date of delivery of 08/22/2024, by Last Menstrual Period who presents for a routine visit. She denies vaginal bleeding, leakage of fluid, decreased movements, or contractions. Efw22% CL 38.1mm edc 08/22 Her is complicated by: Efw 38% Pt has had peds appt With [facility] The patient reports that her feet are not swollen and she has not been on her feet much lately. She denies experiencing any contractions, leakage of fluid, or vaginal bleeding. The patient's baby's weight is in the 22nd percentile, and she is eating well, consuming three meals and three snacks daily. She has gained 17 pounds during her and is not engaging in any exercises during the day. The patient had a glucose test and passed, but her iron levels were found to be low. She is taking iron pills, which were not covered by insurance, and is advised to take them with vitamin C to enhance absorption. She usually drinks orange or apple juice in the morning with her breakfast. The patient expresses a desire to prepare for a natural and has looked into a physical therapist who does spinning babies program She has considered finding a pp skip hoist operator, The patient inquires about collecting colostrum early and is advised to start at 35-36 weeks of . She is instructed not to engage in nipple stimulation as it can cause contractions and to look for passive collection cups for colostrum collection. The patient reports receiving her Tdap, COVID, and flu shots and plans to get her RSV shot at [facility]. Objective Physical Exam weight: 209 lb Expected Total Weight Gain: 11 lb-19 lb Pregravid BMI: 30.06 BP: 98/60 Labs Urine dip: Lab Results Component Value Date KETONESU Negative 05/19/2024 GLUCOSEUR Negative 05/19/2024 LEUKOCYTESUR Positive 05/19/2024 Lab Results Component Value Date HGB 10.5 (L) 05/14/2024 HCT 32.8 (L) 05/14/2024 Assessment/Plan Diagnoses and all orders for this visit: 26 weeks gestation of - Urine dip Second trimester Poor weight gain (0-17) Nausea and vomiting, unspecified vomiting type Follow up in 2 weeks for a routine visit. Glucose completed 2. growth: - weight at the 22nd percentile - Plan: a) Monitor closely. b) Repeat ultrasound in 3-4 weeks to assess growth and blood flow. 3. Swollen feet: - Patient denies significant swelling - Plan: a) Encourage patient to elevate feet when possible. b) Monitor for any changes. 4. Weight gain and exercise: - Patient has gained 17 pounds - Plan: a) Encourage patient to engage in light exercises during the day, as tolerated. 5. Iron deficiency: - Patient's iron levels are low - Plan: a) Recommend taking iron supplements with vitamin C to enhance absorption. 6. plan and skip hoist operator: - Patient interested in natural and considering a pp skip hoist operator - Plan: a) Discuss the benefits and potential drawbacks with the patient and her partner to make an informed decision. 7. Colostrum collection: - Plan: a) Advise patient to start collecting colostrum at 35-36 weeks gestation. b) Recommend passive collection cups to avoid nipple stimulation and potential contractions. 8. Immunizations: - Patient received Tdap, COVID, and flu shots - Plan: a) Encourage patient to get the RSV shot at [facility] as planned. Pt and wish to deliver with Dr Stone 9. Follow-up: - Dr Stone documented in this encounter [facility] 05-15-2024 History of Presen t illness Narrative Anwmia documented in this encounter [facility] 05-04-2024 History of Presen t illness Narrative Subjective Brigette Esquivel is a 23 y.o. at 24w2d with a working estimated date of delivery of 08/22/2024, by Last Menstrual Period who presents for a routine visit. She denies vaginal bleeding, leakage of fluid, decreased movements, or contractions. Her is complicated by: Efw 38% Glucose orders placed and information given Leukocytes in urine : culture sent The patient reports experiencing increased swelling in her feet after a busy weekend, which included cleaning the house, attending her sister's baby shower, and engaging in a significant amount of walking. She noticed the swelling on Friday and it has not subsided since. The patient is concerned about the potential for a during childbirth and wishes to have a vaginal , unless a is medically necessary. She expresses anxiety regarding the higher mortality rate for black women during childbirth and desires a healthcare provider who will listen to her concerns and respect her wishes. The patient's sister had a difficult childbirth experience, which involved an emergency due to the baby's shoulders getting stuck and oxygen deprivation. This has contributed to the patient's concerns about her own childbirth experience. The patient has recently started a new job and is inquiring about short-term disability medical leave, as she does not qualify for [facility]. Objective Physical Exam weight: 207 lb Expected Total Weight Gain: 11 lb-19 lb Pregravid BMI: 30.06 BP: 100/58 Labs Urine dip: Lab Results Component Value Date KETONESU Negative 05/04/2024 GLUCOSEUR Negative 05/04/2024 LEUKOCYTESUR Positive 05/04/2024 Lab Results Component Value Date HGB 11.9 01/23/2024 HCT 36.6 01/23/2024 No results found for: PAPPA , AFP , HCG , ESTRIOL , INHBA No results found for: GLUF , GLUT1 , CBROBUW2QM , [id number] Imaging The most recent ultrasound was performed on 04/05/2024 with a study GA of and EFW of . Assessment/Plan Continue vitamin. Labs reviewed. Follow up in 2 weeks for a routine visit. 1. : - Plan: a) Continue care and follow-up appointments as scheduled. b) Encourage patient to attend childbirth education classes and schedule a hospital tour. 2. Swollen feet: - Plan: a) Recommend elevating feet, drinking 72 ounces of water daily, limiting salt intake, and using support stockings. b) Monitor swelling during future visits and assess for any signs of preeclampsia. 3. Blood clot prevention during travel: - Plan: a) Advise taking baby aspirin and performing foot exercises during trips lasting more than 2 hours. b) Encourage staying hydrated during travel. 4. Vaccinations: - Plan: a) Tdap: Patient received Tdap a couple of months ago at [facility]. b) RSV: Recommend receiving RSV vaccine at health department or Dr. Montes's practice before 28-30 weeks gestation. c) COVID and flu: Vaccines available as desired. d) Advise patient's partner to check with Dr. Montes about receiving RSV vaccine. 5. plan and provider concerns: - Plan: a) Encourage patient to schedule an appointment with Dr. Stone at [facility] to discuss plan and address concerns regarding racial disparities in maternal care. b) Reassure patient that her concerns will be heard and respected during the process. c) Discuss the possibility of VBACs and C-sections as medically necessary. 6. Short-term disability paperwork: - Plan: a) Assist patient in completing and submitting short-term disability medical leave paperwork as needed. Subjective Brigette Esquivel is a 23 y.o. at 24w2d with a working estimated date of delivery of 08/22/2024, by Last Menstrual Period who presents for a routine visit. She denies vaginal bleeding, leakage of fluid, decreased movements, or contractions. Her is complicated by: Efw 38% Objective Physical Exam: weight: 207 lb Expected Total Weight Gain: 11 lb-19 lb Pregravid BMI: 30.06 BP: 100/58 Labs Urine Dip: Lab Results Component Value Date KETONESU Negative 05/04/2024 GLUCOSEUR Negative 05/04/2024 LEUKOCYTESUR Positive 05/04/2024 Lab Results Component Value Date HGB 11.9 01/23/2024 HCT 36.6 01/23/2024 Assessment/Plan Diagnoses and all orders for this visit: 24 weeks gestation of - Urine dip - Urine culture Second trimester - Urine culture Poor weight gain (0-17) Nausea and vomiting, unspecified vomiting type Screening for diabetes mellitus (DM) - Hemoglobin and hematocrit, blood - Glucose tolerance, 1 hour Leukocytes in urine - Urine culture Continue vitamin. Urine cx and rx prn results Expected mode of delivery VD Follow up in 1 week for a routine visit. documented in this encounter [facility] 04-08-2024 History of Presen t illness Narrative Subjective Brigette Esquivel is a 23 y.o. at 20w4d with a working estimated date of delivery of 08/22/2024, by Last Menstrual Period who presents for a routine visit. She denies vaginal bleeding, leakage of fluid, decreased movements, or contractions. Patient: The fetus is in the 38th percentile, The patient is adhering to a diet of 3 meals and 3 snacks regularly. The patient is informed that the gender of the baby is female. The patient expresses interest in receiving the Tdap vaccine at 28 weeks and the RSV vaccine. The patient complains of back pain for the last three to four weeks. The patient has a urinary tract infection (UTI) and reports the presence of white cells in the urine. The patient is not currently using any maternity bands for support. Her is complicated by: Efw 38% Objective Physical Exam weight: 197 lb Expected Total Weight Gain: 11 lb-19 lb Pregravid BMI: 30.06 BP: 100/62 Labs Urine dip: Lab Results Component Value Date KETONESU Negative 03/09/2024 GLUCOSEUR Negative 03/09/2024 LEUKOCYTESUR Positive 03/09/2024 Lab Results Component Value Date HGB 11.9 01/23/2024 HCT 36.6 01/23/2024 Assessment/Plan Diagnoses and all orders for this visit: 20 weeks gestation of - Urine dip Second trimester Poor weight gain (0-17) Nausea and vomiting, unspecified vomiting type 1. growth: - Ultrasound shows fetus at 38th percentile,- Plan: Repeat ultrasound in 6-8 weeks to monitor size. 2. Nutrition: - Patient reports eating 3 meals and 3 snacks regularly. - Plan: Encourage patient to continue with current nutritional habits. 3. gender: - Ultrasound reveals female fetus. 4. Immunizations: - Tdap vaccine recommended at 28 weeks. - RSV vaccine available at the health department. - Plan: Educate patient on the importance of immunizations and schedule vaccines accordingly. 5. Back pain: - Patient reports back pain for the last 3-4 weeks. - Plan: Refer patient to a physical therapist, recommend maternity band for support, and advise Tylenol for pain management. 6. Urinary tract infection (UTI): - Patient presents with white cells in urine and back pain. - Plan: Start patient on antibiotics based on symptoms and monitor for improvement. Urine cx ordered 7. Follow-up: - Schedule next office visit in 6-8 weeks to monitor growth, assess back pain, and discuss immunizations. Continue vitamin. Follow up in 2 weeks for a routine visit. Complaints of Back pain Asking about maternity 21 results documented in this encounter [facility] 03-09-2024 History of Presen t illness Narrative Subjective Brigettesharon Esquivel is a 23 y.o. at 16w2d with a working estimated date of delivery of 08/22/2024, by Last Menstrual Period who presents for a routine visit. She denies vaginal bleeding, leakage of fluid, decreased movements, or contractions. The patient presents with no chief complaint. The patient denies any urinary symptoms such as burning or urgency, but mentions increased urinary frequency. She has been advised to increase her protein intake and has been making efforts to do so, but has not yet reached the recommended 95 grams per day. The patient has been consuming protein bars, peanut butter with apples, and cheese sticks to increase her protein intake. She expresses concern about not meeting the protein goal but is reassured by the clinician. The patient is interested in undergoing the Q- chromosome test. Her is complicated by: PWG Objective Physical Exam weight: 190 lb Expected Total Weight Gain: 11 lb-19 lb Pregravid BMI: 30.06 BP: 100/60 Labs Urine dip: Lab Results Component Value Date KETONESU Negative 03/09/2024 GLUCOSEUR Negative 03/09/2024 LEUKOCYTESUR Positive 03/09/2024 Lab Results Component Value Date HGB 11.9 01/23/2024 HCT 36.6 01/23/2024 Assessment/Plan Diagnoses and all orders for this visit: 16 weeks gestation of - Urine dip Second trimester Poor weight gain (0-17) Nausea and vomiting, unspecified vomiting type Continue vitamin. 1. Nausea and vomiting - Patient reports no nausea or vomiting during the visit. - Patient reports feeling baby flutters 3. Urinary symptoms - Patient reports increased urinary frequency but no burning or urgency. - Plan: a) Send urine sample for culture. b) Prescribe Kefalex, to be taken four times a day for 7-10 days. c) If culture results are negative, the patient may stop taking the medication. 4. Weight gain and nutrition - Patient has gained weight and is working on increasing protein intake as per the health science specialist's recommendations. - Plan: a) Encourage the patient to continue incorporating protein-rich foods into their diet and not to overthink it. b) Reassess nutritional status at the next visit. 5. heart rate and movement - heart rate is 154 bpm, which is within the normal range. - Patient has not felt the baby move yet but is experiencing flutters. - 6. Q- testing - Patient expresses interest in undergoing Q- testing. - Plan: a) Order Q- testing and ensure the sample is sent to the correct lab. b) Instruct the patient to sign up for the program and inquire about the results communication process. 7. Follow-up - Schedule a follow-up appointment for an ultrasound and to reassess the patient's overall health and progress during . Follow up in 2 weeks for a routine visit. AUS 4 weeks documented in this encounter [facility] 02-24-2024 History of Presen t illness Narrative Leukocytes in urine Subjective Brigette Esquivel is a 23 y.o. at 14w2d with a working estimated date of delivery of 08/22/2024, by Last Menstrual Period who presents for a routine visit. She denies vaginal bleeding, leakage of fluid, decreased movements, or contractions. Patient: The patient reports that she usually takes her medication before getting up in the morning and generally does not experience any issues with them. She mentions one instance of vomiting after taking the medication but states that taking them before getting up helps prevent this. The patient admits to being very picky with her food choices and does not like breakfast foods. She has tried eating bagels but has grown tired of them. 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 Note was given after today's visit to allow 30 min. breaks daily for lunch. Her is complicated by: Poor weight gain Objective Physical Exam weight: 188 lb Expected Total Weight Gain: 11 lb-19 lb Pregravid BMI: 30.06 BP: 98/58 Heart Rate: 150 Fundal Height (cm): 16 cm Labs Urine dip: Lab Results Component Value Date KETONESU Negative 02/24/2024 GLUCOSEUR Negative 02/24/2024 LEUKOCYTESUR Positive 02/24/2024 Lab Results Component Value Date HGB 11.9 01/23/2024 HCT 36.6 01/23/2024 Assessment/Plan Diagnoses and all orders for this visit: 14 weeks gestation of - Urine dip Second trimester Continue vitamin. 1. Nausea and vomiting with medication intake: - Plan: a) Patient reports taking zofran medication before getting up in the morning helps prevent vomiting. Continue this practice to minimize nausea and vomiting. 2. Ketones in urine and poor dietary intake: - Plan: a) Refer patient to a combination machine tender for nutritional counseling and meal planning. b) Encourage patient to consume breakfast and consider meal replacement options such as protein drinks. c) Monitor ketone levels in urine during follow-up visits. Zofran pump offered and pt does not wish 5. Work-related eating challenges: - Plan: a) Collaborate with the combination machine tender to develop strategies for eating during work hours, including scheduling dedicated lunch breaks. Follow-up: - Plan: a) Schedule a follow-up appointment in two weeks for weight monitoring and to assess progress with dietary changes and weight gain Follow up in 2 weeks for a routine visit.. Pyuria and pt does not complain of symptoms Will await urine culture results for treatment US ordered to assess growth documented in this encounter [facility] 02-02-2024 History of Presen t illness Narrative Subjective Brigette Esquivel is a 23 y.o. at 11w1d with a working estimated date of delivery of 08/22/2024, by Last Menstrual Period who presents for a routine visit. She denies vaginal bleeding, leakage of fluid, decreased movements, or contractions. Her is complicated by: Objective Physical Exam weight: 190 lb Expected Total Weight Gain: Could not be calculated Pregravid BMI: Could not be calculated BP: 108/68 Labs Urine dip: Lab Results Component Value Date KETONESU Positive 02/02/2024 GLUCOSEUR Negative 02/02/2024 LEUKOCYTESUR Positive 02/02/2024 Lab Results Component Value Date HGB 11.9 01/23/2024 HCT 36.6 01/23/2024 PPW lost 2 pounds Assessment/Plan Diagnoses and all orders for this visit: 11 weeks gestation of - Urine dip Encounter for supervision of normal first in first trimester Screening for malignant neoplasm of cervix - THINPREP TIS PAP AND HPV MRNA E6/E7 Screen for STD (sexually transmitted disease) - CEPHEID CT/NG Encounter for drug screening - Rapid drug screen, urine Continue vitamin. 1. Nausea and vomiting in : - Plan: a) Continue Unisom and B6 as currently prescribed. b) Prescribe Zofran as a backup for nausea and vomiting control. c) Monitor weight gain and hydration status; consider IV hydration if needed. d) Follow up in 3 weeks for weight gain assessment. 2. care and monitoring: - Plan: a) Encourage a balanced diet and adequate caloric intake. b) Recommend alternative vitamins (chewables) due to intolerance of gummies. c) Perform a pap smear d) Discuss chromosomal testing Qnatal-Qherit options and insurance coverage. e) Schedule a 20-week ultrasound for anatomy assessment. f) Follow up every 4 weeks until 28 weeks, then every 2 weeks until the last month, and weekly thereafter. 3. precautions and education: - Plan: a) Advise on dietary restrictions (limited fish intake, no uncooked sushi, hot dogs, or cold cuts unless heated, no soft cheese, no exotic fish). b) Caution against hot tubs, saunas, heating pads, and heating blankets. c) Instruct to call the office for any vaginal bleeding or cramping. 4. Sexual activity during : - Plan: a) Reassure that sexual activity is safe unless experiencing vaginal bleeding or cramping. b) Educate on the potential for prostaglandin-induced uterine contractions and labor risk later in . 5. Weight gain during : - Plan: a) Encourage a healthy weight gain of 15 to 25 pounds throughout . b) Monitor weight closely and address any concerns during follow-up appointments. Follow up in 2 weeks for a routine visit. Positive Leukocytes and Ketones and Keflex ordered documented in this encounter [facility] Healthcare Evaluation note Diagnosis 20 weeks gestation of Second trimester state, incidental Poor weight gain (0-17) Failure to thrive Nausea and vomiting, unspecified vomiting type Leukocytes in urine Other nonspecific finding on examination of urine [facility] Diagnosis 24 weeks gestation of Second trimester state, incidental Poor weight gain (0-17) Failure to thrive Nausea and vomiting, unspecified vomiting type Screening for diabetes mellitus (DM) Screening for diabetes mellitus Leukocytes in urine Other nonspecific finding on examination of urine [facility] Diagnosis Anemia, unspecified type- Primary [facility] Diagnosis 26 weeks gestation of Second trimester state, incidental Poor weight gain (0-17) Failure to thrive Nausea and vomiting, unspecified vomiting type [facility] Diagnosis Encounter to establish care 28 weeks gestation of Third trimester state, incidental [facility] Diagnosis Poor weight gain (0-17)- Primary Failure to thrive 14 weeks gestation of Second trimester state, incidental Ketonuria Acetonuria Nausea and vomiting, unspecified vomiting type [facility] Diagnosis Urinary tract infection without hematuria, site unspecified- Primary 11 weeks gestation of Encounter for supervision of normal first in first trimester Screening for malignant neoplasm of cervix Screening for malignant neoplasm of the cervix Screen for STD (sexually transmitted disease) Screening examination for venereal disease Encounter for drug screening 18 weeks gestation of Screening for chromosomal anomalies by amniocentesis Screening for genetic disease carrier status Nausea and vomiting, unspecified vomiting type [facility] Diagnosis Pyuria- Primary Other nonspecific finding on examination of urine 16 weeks gestation of Second trimester state, incidental Poor weight gain (0-17) Failure to thrive Nausea and vomiting, unspecified vomiting type care, subsequent in first trimester Screening for genetic disease carrier status [facility] Diagnosis 34 weeks gestation of Third trimester state, incidental [facility] Consultation (Routine) - Authorized Specialty Diagnoses / Procedures Referred By Contac t Referred To Contact Nutrition / Behavioral Health Diagnoses Poor weight gain (0-17) Procedures [place] OFFICE/OUTPATIENT NEW HIGH MDM 60 MINUTES Judith Esquivel MD [address] [facility] [address] [place] [address] Shauna Phelps, , RDN, LD, CHES [address] [place], [place] Referral ID Status Reason Start Date Expiration Date Visits Requested Visits Authorized [id number] Authorized Consult and Treat 02/24/2024 08/22/2024 1 1 [facility] Summary Purpose Family History No Family History Records Found Advance Directives No Advanced Directives Records Found Additional Source Comments Care Teams (unrecognized sec tion and content) Moth Exterminator Relationship Specialty Start Date End Date Unallocated, Ricky Hernandez MD [address] [place] [id number] PCP - General Family Medicine 01/09/24 Moth Exterminator Relationship Specialty Start Date End Date Unallocated, [place] [address] PCP - General Family Medicine 01/09/24 Moth Exterminator Relationship Specialty Start Date End Date Unallocated, [place] [address] PCP - General Family Medicine 01/09/24 Moth Exterminator Relationship Specialty Start Date End Date Unallocated, [place] [address] PCP - General Family Medicine 01/09/24 Moth Exterminator Relationship Specialty Start Date End Date Unallocated, [place] [address] PCP - General Family Medicine 01/09/24 Moth Exterminator Relationship Specialty Start Date End Date Unallocated, [place] [address] PCP - General Family Medicine 01/09/24 Moth Exterminator Relationship Specialty Start Date End Date Unallocated, [place] [address] PCP - General Family Medicine 01/09/24 Moth Exterminator Relationship Specialty Start Date End Date Unallocated, [place] [address] PCP - General Family Medicine 01/09/24 Moth Exterminator Relationship Specialty Start Date End Date Unallocated, [place] [address] PCP - General Family Medicine 01/09/24 Moth Exterminator Relationship Specialty Start Date End Date Unallocated, [place] [address] PCP - General Family Medicine 01/09/24 Moth Exterminator Relationship Specialty Start Date End Date Unallocated, Ricky Hernandez MD [address] [place] [address] PCP - General Family Medicine 01/09/24 Moth Exterminator Relationship Specialty Start Date End Date Unallocated, Ricky Hernandez MD [address] [place] [address] PCP - General Family Medicine 01/09/24 Moth Exterminator Relationship Specialty Start Date End Date Unallocated, Ricky Hernandez MD [address] [place] [address] PCP - General Family Medicine 01/09/24 Moth Exterminator Relationship Specialty Start Date End Date Unallocated, Ricky Hernandez MD [address] [place] [address] PCP - General Family Medicine 01/09/24 Reason for Visit (unrecogniz ed section and content) Reason Comments Establish Care Specialty Diagnoses / Procedures Referred By Kristen t Referred To Contact Obstetrics and Gynecology Diagnoses Encounter for supervision of normal first , first trimester Procedures please check global maternity benefits EDC 08/22/24 Judith Esquivel MD [address] [facility] [address] [place] [address] Judith Esquivel MD [address] [facility] [address] [place] [address] Referral ID Status Reason Start Date Expiration Date V isits Requested Visits Authorized [id number] Closed Other 01/12/2024 07/10/2024 1 1 Reason Comments Routine Visit INFORMATION SOURCE (unrecogn ized section and content) DATE CREATED AUTHOR 07/15/[address] [facility] EPIC FOR RECORDS PERTAINING TO PATIENTS WHO ARE OR HAVE BEEN ENROLLED IN A CHEMICAL DEPENDENCY/SUBSTANCEABUSE PROGRAM, SOME INFORMATION MAY BE OMITTED. This clinical summary was aggregated from multiple sources. Caution should be exercised in using it in the provision of clinical care. This summary normalizes information from multiple sources, and as a consequence, information in this document may materially change the coding, format and clinical context of patient data. In addition, data may be omitted in some cases. CLINICAL DECISIONS SHOULD BE BASED ON THE PRIMARY CLINICAL RECORDS. [facility] [employer] [facility]. provides no warranty or guarantee of the accuracy or completeness of information in this document.
== END 2024-07-26 20:13 | disposition home or self-care (01) ==
LOC: LAB 20:12
PROVIDERS: Visit Provider Obstetrics & Gynecology
DX: Z34.93 Encounter for supervision of normal pregnancy, unspecified, third trimester (principal)
CPT/HCPCS: 36415; 87081

== ENCOUNTER 2024-08-17 21:26 | Inpatient (IN) | payer OTHER, BC, SELFPAY ==
--- OUTSIDE RECORDS SUMMARY | 2024-08-17 21:30 | XMS_ITS | CCD ---
Author Organization [facility] Care Team Providers Care [employer] Name Role Phone Unallocated MD, Noms Provider Primary Care Provi ga BERTHA, WILBER Attending Unavailable BERTHA, WILBER Attending Unavailable BERTHA, WILBER Attending Unavailable BERTHA, WILBER Referring Unavailable BERTHA, WILBER Attending Unavailable SIERRA, PENOLA P Attending Unavailable SIERRA, PENOLA P Referring Unavailable SIERRA, PENOLA P Attending Unavailable SIERRA, PENOLA P Attending Unavailable SIERRA, PENOLA P Attending Unavailable SIERRA, PENOLA P Attending Unavailable SIERRA, PENOLA P Attending Unavailable BERTHA, WILBER Attending Unavailable SIERRA, PENOLA P Attending Unavailable BERTHA, WILBER Attending Unavailable Medications Current Medications Medication Drug [...] for 10 days. 40 capsule 02/02/2024 02/12/2024 Vit-Fe Fumarate-FA ( 19) 29-1 MG chewable tablet (20 sources) Start: 02-02-2024 Vit-F e Fumarate-FA ( 19) 29-1 MG chewable tablet Indications: 11 weeks gestation of , Encounter for supervision of normal first in first trimester Chew 1 tablet Daily Chewable, please dispense what insurance will cover 90 tablet 3 02/02/2024 Active Completed/Discontinued Medications Medication Drug Class(es) Dates Sig (Normalized) Sig (Original) ferrous sulfate 325 mg delayed release oral tablet (17 sources) Start: 05-15-2024 End: 05-15-2025 take 1 tablet by mouth at mealtime ferrous sulfate (Fe Tabs) 325 (65 Fe) MG EC tablet Indications: Anemia, unspecified type Take 1 tablet (325 mg) by mouth in the morning. Take with meals. Do not crush, chew, or split.. 90 tablet 3 05/15/2024 08/03/2024 Discontinued ondansetron 4 mg disintegrating oral tablet (20 sources) Serotonin-3 Receptor Antagonist Start: 05-11-2024 End: 08-03-2024 ondansetron ODT (Zofran-ODT) 4 MG disintegrating tablet Indications: Nausea and vomiting, unspecified vomiting type Take every 6-8 hours as needed for nausea. 30 tablet 3 05/11/2024 08/03/2024 Discontinued Start: 04-01-2024 ondansetron OD T (Zofran-ODT) 4 [...] tablet 3 02/02/2024 02/02/2024 Discontinued (Therapy completed) Problems Active Problems Problem Classification Problem Date [...] for screening for diabetes mellitus] 05-04-2024 Episodic Immunizations and screening for infectious disease (2 sources) Viral screening status; Translations: [Encounter for screening for other viral diseases] 07-26-2024 Episodic Nausea and vomiting (12 sources) Nausea and vomiting; Translations: [Nausea with vomiting, unspecified] 04-08-2024 Episodic Other complications of (2 sources) size does not accord with dates; Translations: [Uterine size-date discrepancy, unspecified trimester] 08-11-2024 Episodic Other nutritional; endocrine; and metabolic disorders (10 sources) Childhood failure to gain weight; Translations: [Failure to thrive (child)] 04-07-2024 Episodic Other and delivery including normal (20 sources) Second trimester ; Translations: [Encounter for [...] [34 weeks gestation of ] 07-12-2024 Episodic Residual codes; unclassified (2 sources) Gestation period, 36 weeks; Translations: [36 weeks gestation of ] 07-26-2024 Episodic Residual codes; unclassified (2 sources) Gestation period, 37 weeks; Translations: [37 weeks gestation of ] 08-03-2024 Episodic Residual codes; unclassified (2 sources) Gestation period, 38 weeks; Translations: [38 weeks gestation of ] 08-11-2024 Episodic Past or Other Problems Problem Classification [...] Range Facility Urinalysis macro (dipstick) panel (U)on 08-03-2024 Bilirubin, UA Negative Negative - 4(70) +++ mg/dL [facility] Blood, UA Positive Negative - 50 Choco/mcL [facility] Comment on above: trace-intact Clarity, UA Clear [facility] Color, UA Yellow [facility] Glucose, UA Negative Negative - 2000(110) ++++ mg/dL [facility] Interpretation and review of laboratory results Abnormal [facility] Ketones, UA Positive Negative - 160(16) ++++ mg/dL [facility] Comment on above: trace Leukocytes, UA Positive Negative - 500+++ Abhishek/mcL [facility] Comment on above: large Nitrite, UA Negative Negative - Positive [facility] pH, UA 7 5 - 9 [facility] Protein, UA Positive Negative - 2000(20) ++++ mg/dL [facility] Comment on above: 30 Spec Grav, UA 1.02 1 - 1.03 [facility] Urobilinogen, UA 0.2 0.2 - 12 mg/dL [facility] ALL MISCELLANEOUS TESTon MISCELLANEOUS TEST COMMENT . [facility] Comment on above: Test Ordered: [id number] Strep Gp B Culture+Rflx Strep Gp B Culture+Rflx Positive [A ] CB Reference Range: Negative Centers for Disease Control and Prevention (CDC) and [place] Congress of Obstetricians and Gynecologists (ACOG) guidelines for prevention of group B streptococcal (GBS) disease specify co-collection of a vaginal and rectal swab specimen to maximize sensitivity of GBS detection. Per the CDC and ACOG, swabbing both the lower vagina and rectum substantially increases the yield of detection compared with sampling the vagina alone. Penicillin G, ampicillin, or cefazolin are indicated for intrapartum prophylaxis of GBS colonization. Reflex susceptibility testing should be performed prior to use of clindamycin only on GBS isolates from penicillin- allergic women who are considered a high risk for anaphylaxis. Treatment with vancomycin without additional testing is warranted if resistance to clindamycin is noted. Organism Identification Comment CB Reference Range: . Beta hemolytic Streptococcus, group B Clindamycin Resistant [A ] CB Reference Range: . Testing for inducible clindamycin resistance was performed using erythromycin and clindamycin in the D-zone test. Per the Centers for Disease Control and Prevention (CDC), erythromycin is no longer an acceptable alternative for intrapartum group B Streptococcus (GBS) prophylaxis for penicillin-allergic women at high risk for anaphylaxis. Performed at: [address] [id number] Policy Writer Typist: Quoc Domínguez PhD, Phone: [phone] Group B Streptococcus Colonization Detection Culture With Re [facility] Urinalysis macro (dipstick) panel (U)on 07-26-2024 Bilirubin, UA Negative Negative - 4(70) +++ mg/dL [facility] Blood, UA Positive Negative - 50 Choco/mcL [facility] Clarity, UA Clear [facility] Color, UA Yellow [facility] Glucose, UA Negative Negative - 1999(110) ++++ mg/dL [facility] Interpretation and review of laboratory results Abnormal [facility] Ketones, UA Negative Negative - 160(16) ++++ mg/dL [facility] Leukocytes, UA Positive Negative - 500+++ Abhishek/mcL [facility] Nitrite, UA Negative Negative - Positive [facility] pH, UA 7 5 - 9 [facility] Protein, UA Trace Negative - 1999(20) ++++ mg/dL [facility] Spec Grav, UA 1.025 1 - 1.03 [facility] Urobilinogen, UA 0.2 0.2 - 12 mg/dL [facility] Urinalysis macro (dipstick) panel (U)on 07-12-2024 Bilirubin, UA Negative Negative - 4(70) +++ mg/dL [facility] Blood, UA Negative Negative - 50 Choco/mcL [facility] Clarity, UA Clear [facility] Color, UA Yellow [facility] Glucose, UA Negative Negative - 1999(110) ++++ mg/dL [facility] Interpretation and review of laboratory results Abnormal [facility] Ketones, UA Negative Negative - 160(16) ++++ mg/dL [facility] Leukocytes, UA Positive Negative - 500+++ Abhishek/mcL [facility] Nitrite, UA Negative Negative - Positive [facility] pH, UA 7 5 - 9 [facility] Protein, UA Positive Negative - 1999(20) ++++ mg/dL [facility] Spec Grav, UA 1.025 1 - 1.03 [facility] Urobilinogen, UA 0.2 0.2 - 12 mg/dL [facility] Urinalysis macro (dipstick) panel (U)Ordered By: Cathy Ferreira on 05-19-2024 Bilirubin, UA Negative Negative - 4(70) +++ mg/dL [facility] Blood, UA Negative Negative - 50 Choco/mcL [facility] Clarity, UA Clear [facility] Color, UA Yellow [facility] Glucose, UA Negative Negative - 1999(110) ++++ mg/dL [facility] Interpretation and review of laboratory results Abnormal [facility] Ketones, UA Negative Negative - 160(16) ++++ mg/dL [facility] Leukocytes, UA Positive Negative - 500+++ Abhishek/mcL [facility] Nitrite, UA Negative Negative - Positive [facility] pH, UA 7.5 5 - 9 [facility] Protein, UA Negative Negative - 1999(20) ++++ mg/dL [facility] Spec Grav, UA 1.01 1 - 1.03 [facility] Urobilinogen, UA 1.0 0.2 - 12 mg/dL [facility] Urinalysis macro (dipstick) panel (U)on 05-04-2024 Bilirubin, UA Negative Negative - 4(70) +++ mg/dL [facility] Blood, UA Negative Negative - 50 Choco/mcL [facility] Clarity, UA Clear [facility] Color, UA Yellow [facility] Glucose, UA Negative Negative - 1999(110) ++++ mg/dL [facility] Interpretation and review of laboratory results Normal [facility] Ketones, UA Negative Negative - 160(16) ++++ mg/dL [facility] Leukocytes, UA Positive Negative - 500+++ Abhishek/mcL [facility] Nitrite, UA Negative Negative - Positive [facility] pH, UA 8 5 - 9 [facility] Protein, UA Negative Negative - 1999(20) ++++ mg/dL [facility] Spec Grav, UA 1.005 1 - 1.03 [facility] Urobilinogen, UA 1.0 0.2 - 12 mg/dL [facility] Urinalysis macro (dipstick) panel (U)on 04-08-2024 Bilirubin, UA Negative Negative - 4(70) +++ mg/dL [facility] Blood, UA Negative Negative - 50 Choco/mcL [facility] Clarity, UA Clear [facility] Color, UA Yellow [facility] Glucose, UA Negative Negative - 1999(110) ++++ mg/dL [facility] Interpretation and review of laboratory results Abnormal [facility] Ketones, UA Negative Negative - 160(16) ++++ mg/dL [facility] Leukocytes, UA Positive Negative - 500+++ Abhishek/mcL [facility] Nitrite, UA Negative Negative - Positive [facility] pH, UA 8.5 5 - 9 [facility] Protein, UA Negative Negative - 1999(20) ++++ mg/dL [facility] Spec Grav, UA 1.015 1 - 1.03 [facility] Urobilinogen, UA 1.0 0.2 - 12 mg/dL [facility] Urinalysis macro (dipstick) panel (U)Ordered By: Cathy Ferreira on 03-09-2024 Bilirubin, UA Negative Negative - 4(70) +++ mg/dL [facility] Blood, UA Negative Negative - 50 Choco/mcL [facility] Clarity, UA Clear [facility] Color, UA Yellow [facility] Glucose, UA Negative Negative - 1999(110) ++++ mg/dL [facility] Interpretation and review of laboratory results Abnormal [facility] Ketones, UA Negative Negative - 160(16) ++++ mg/dL [facility] Leukocytes, UA Positive Negative - 500+++ Abhishek/mcL [facility] Nitrite, UA Negative Negative - Positive [facility] pH, UA 8.5 5 - 9 [facility] Protein, UA Negative Negative - 1999(20) ++++ mg/dL [facility] Spec Grav, UA 1.005 1 - 1.03 [facility] Urobilinogen, UA 1.0 0.2 - 12 mg/dL [facility] Urinalysis macro (dipstick) panel (U)on 02-24-2024 Bilirubin, UA Negative Negative - 4(70) +++ mg/dL [facility] Blood, UA Negative Negative - 50 Choco/mcL [facility] Clarity, UA Clear [facility] Color, UA Yellow [facility] Glucose, UA Negative Negative - 1999(110) ++++ mg/dL [facility] Interpretation and review of laboratory results Abnormal [facility] Ketones, UA Negative Negative - 160(16) ++++ mg/dL [facility] Leukocytes, UA Positive Negative - 500+++ Abhishek/mcL [facility] Nitrite, UA Negative Negative - Positive [facility] pH, UA 8.0 5 - 9 [facility] Protein, UA Negative Negative - 1999(20) ++++ mg/dL [facility] Spec Grav, UA 1.010 1 - 1.03 [facility] Urobilinogen, UA 1.0 0.2 - 12 mg/dL [facility] - Cytologyon Operations Research Engineer Cyto stain Nom (Cvx/Vag) [ID] [facility] Comment on above: CMB, CT(ASCP) CT Scr eening Location: [facility], [address] [place] [address] Cytology study comment Cyto stain Saravanan (Cvx/Vag) [Interp] [facility] Comment on above: This Pap test has be en evaluated with computer assisted technology. Microscopic observation Cyto stain Nom (Cvx) [facility] Comment on above: Cytology Results: Ne gative for intraepithelial lesion or malignancy. Specimen source Cyto stain N om (Cvx/Vag) [facility] Comment on above: None given Statement of adequacy Cyto stain (Cvx/Vag) [Interp] [facility] Comment on above: Satisfactory for vicente luation. Endocervical/transformation zone component absent. Laboratory - Microbiology an d Antimicrobial susceptibilityon 02-03-2024 HPV E6+E7 mRNA NITHYA+probe Ql (Cvx) Not detected Not Detected [facility] Comment on above: Methodology: Transcr iption-Mediated Amplification This assay detects E6/E7 viral messenger RNA (mRNA) from 14 high-risk HPV types (16,18,31,33,35,39,45,51,52,56,58,59,66,68). Cervical sources are required for HPV testing. If a vaginal source from a patient who has had a total hysterectomy with removal of cervix was submitted, please contact the testing laboratory for alternative testing options. For additional information, please refer to http://education.iSTAR.EquityLancer/faq/NRF714z1 (This link if provided for information/ educational purposes only.) No Panel Informationon 02-02 (ALWAYS MESSAGE) [facility] Comment on above: EXPLANATORY NOTE: The [...] historic and current clinical information. Clinical information [facility] Comment on above: None given Date of previous biopsy [facility] Comment on above: None given Date of previous PAP smear [facility] Comment on above: None given Last menstrual period start date [facility] Comment on above: None given Performing Organization Information Site ID: [id number] Name: [id number] Address: [address] [place] [address], [address] [place] [id number] Director: Ketan Sutherland MD [facility] Drugs of abuse panel Screen (U)on 02-02-2024 Amphetamines Ql (U) Negative [facility] Barbiturates Ql (U) Negative [facility] Benzodiazepines Ql (U) Negative [facility] Benzoylecgonine Ql (U) Negative [facility] Carboxy tetrahydrocannabinol (Mec) [Mass/Mass] Negative [facility] Interpretation and review of laboratory results Normal [facility] Methadone (U) [Mass/Vol] Negative [facility] Methylenedioxymethamphetamin e Screen Ql (U) Negative [facility] Morphine (U) [Mass/Vol] Negative [facility] Opiates Ql (U) Negative [facility] oxyCODONE Ql (U) Negative [facility] Phencyclidine Ql (U) Negative [facility] Reference Lab Test ID Negative [facility] Tricyclic antidepressants [Mass/Vol] Negative [facility] Laboratory - Specimen inform ationon 02-02-2024 Specimen type Nom (Spec) swab [facility] No Panel Informationon 02-01 GONORRHOEAE DNA(PCR) Negative [facility] Interpretation and review of laboratory results Normal [facility] Urinalysis macro (dipstick) panel (U)Ordered By: Cathy Ferreira on 02-02-2024 Bilirubin, UA Negative Negative - 4(70) +++ mg/dL [facility] Blood, UA Negative Negative - 50 Choco/mcL [facility] Clarity, UA Clear [facility] Color, UA Yellow [facility] Glucose, UA Negative Negative - 2000(110) ++++ mg/dL [facility] Interpretation and review of laboratory results Abnormal [facility] Ketones, UA Positive Negative - 160(16) ++++ mg/dL [facility] Leukocytes, UA Positive Negative - 500+++ Abhishek/mcL [facility] Nitrite, UA Negative Negative - Positive [facility] pH, UA 6.5 5 - 9 [facility] Protein, UA Negative Negative - 1999(20) ++++ mg/dL [facility] Spec Grav, UA 1.025 1 - 1.03 [facility] Urobilinogen, UA 1.0 0.2 - 12 mg/dL [facility] Vital Signs Date Time Vital Sign Value Performing Clinician Faci lity 08-11-2024 15:52-0500 Body mass index (BMI) [Ratio] 37.87 kg/m2 Wilber Bertha DO Work Phone: [facility] 08-11-2024 15:52-0500 Body weight 109.68 kg Wilber Bertha DO Work Phone: [facility] 08-11-2024 15:52-0500 Diastolic blood pressure 76 mm[Hg] Wilber Bertha DO Work Phone: [facility] 08-11-2024 15:52-0500 Systolic blood pressure 114 mm[Hg] Wilber Bertha DO Work Phone: [facility] 08-03-2024 15:17-0500 Body mass index (BMI) [Ratio] 36.4 kg/m2 Wilber Bertha DO Work Phone: [facility] 08-03-2024 15:17-0500 Body weight 105.42 kg Wilber Bertha DO Work Phone: [facility] 08-03-2024 15:17-0500 Diastolic blood pressure 74 mm[Hg] Wilber Bertha DO Work Phone: [facility] 08-03-2024 15:17-0500 Systolic blood pressure 110 mm[Hg] Wilber Bertha DO Work Phone: [facility] 07-26-2024 13:20-0500 Body mass index (BMI) [Ratio] 35.71 kg/m2 Wilber Bertha DO Work Phone: [facility] 07-26-2024 13:20-0500 Body weight 103.42 kg Wilber Bertha DO Work Phone: [facility] 07-26-2024 13:20-0500 Diastolic blood pressure 78 mm[Hg] Wilber Bertha DO Work Phone: [facility] 07-26-2024 13:20-0500 Systolic blood pressure 124 mm[Hg] Wilber Bertha DO Work Phone: [facility] 07-12-2024 14:28-0500 Body mass index (BMI) [Ratio] 35.08 kg/m2 Wilber Bertha DO Work Phone: [facility] 07-12-2024 14:28-0500 Body weight 101.61 kg Wilber Bertha DO Work Phone: [facility] 07-12-2024 14:28-0500 Diastolic blood pressure 74 mm[Hg] Wilber Bertha DO Work Phone: [facility] 07-12-2024 14:28-0500 Systolic blood pressure 122 mm[Hg] Wilber Bertha DO Work Phone: [facility] 05-19-2024 14:36-0500 Body mass index (BMI) [Ratio] 32.73 kg/m2 Judith Esquivel MD Work Phone: [facility] 05-19-2024 14:36-0500 Body weight 94.8 kg Judith Esquivel MD Work Phone: [facility] 05-19-2024 14:36-0500 Diastolic blood pressure 60 mm[Hg] Judith Esquivel MD Work Phone: [facility] 05-19-2024 14:36-0500 Systolic blood pressure 98 mm[Hg] Judith Esquivel MD Work Phone: [facility] 05-04-2024 16:26-0500 Body mass index (BMI) [Ratio] 32.42 kg/m2 Judith Esquivel MD Work Phone: [facility] 05-04-2024 16:26-0500 Body weight 93.89 kg Judith Esquivel MD Work Phone: [facility] 05-04-2024 16:26-0500 Diastolic blood pressure 58 mm[Hg] Judith Esquivel MD Work Phone: [facility] 05-04-2024 16:26-0500 Systolic blood pressure 100 mm[Hg] Judith Esquivel MD Work Phone: [facility] 04-08-2024 08:23-0400 Body mass index (BMI) [Ratio] 30.85 kg/m2 Judith Esquivel MD Work Phone: [facility] 04-08-2024 08:23-0400 Body weight 89.36 kg Judith Esquivel MD Work Phone: [facility] 04-08-2024 08:23-0400 Diastolic blood pressure 62 mm[Hg] Judith Esquivel MD Work Phone: [facility] 04-08-2024 08:23-0400 Systolic blood pressure 100 mm[Hg] Judith Esquivel MD Work Phone: [facility] 03-09-2024 08:53-0400 Body mass index (BMI) [Ratio] 29.76 kg/m2 Judith Esquivel MD Work Phone: [facility] 03-09-2024 08:53-0400 Body weight 86.18 kg Judith Esquivel MD Work Phone: [facility] 03-09-2024 08:53-0400 Diastolic blood pressure 60 mm[Hg] Judith Esquivel MD Work Phone: [facility] 03-09-2024 08:53-0400 Systolic blood pressure 100 mm[Hg] Judith Esquivel MD Work Phone: [facility] 02-24-2024 09:01-0400 Body mass index (BMI) [Ratio] 29.44 kg/m2 Judith Esquivel MD Work Phone: [facility] 02-24-2024 09:01-0400 Body weight 85.28 kg Judith Esquivel MD Work Phone: [facility] 02-24-2024 09:01-0400 Diastolic blood pressure 58 mm[Hg] Judith Esquivle MD Work Phone: [facility] 08-27-2024 09:01-0400 Systolic blood pressure 98 mm[Hg] Judith Esquivel MD Work Phone: [facility] 02-02-2024 13:15-0400 Body height 170.2 cm Judith Esquivel MD Work Phone: [facility] 02-02-2024 12:55-0400 Body mass index (BMI) [Ratio] 29.76 kg/m2 Judith Esquivel MD Work Phone: [facility] 02-02-2024 12:55-0400 Body weight 86.18 kg Judith Esquivel MD Work Phone: [facility] 02-02-2024 12:55-0400 Diastolic blood pressure 68 mm[Hg] Judith Esquivel MD Work Phone: [facility] 02-02-2024 12:55-0400 Systolic blood pressure 108 mm[Hg] Judith Esquivel MD Work Phone: [facility] Encounters Encounter Date Encounter Type Care Provider Facility Start: 08-16-2024 End: 08-16-2024 ambulatory WILBER BERTHA Not Available Start: 08-11-2024 End: 08-11-2024 flow sheet Wilber Bertha DO Work Phone: [facility] Comment on above: 38 weeks gestation o f ; Third trimester ; size inconsistent with dates Start: 08-11-2024 End: 08-11-2024 ambulatory WILBER BERTHA Not Available Start: 08-11-2024 End: 08-11-2024 Bamboo flowsheet Wilber Bertha DO Work Phone: [facility] Start: 08-11-2024 End: 08-11-2024 Bamboo flowsheet Wilber Bertha DO Work Phone: [facility] Start: 08-03-2024 End: 08-03-2024 flow sheet Wilber Bertha DO Work Phone: [facility] Comment on above: 37 weeks gestation o f ; Third trimester Start: 08-03-2024 End: 08-03-2024 ambulatory WILBER BERTHA Not Available Start: 08-03-2024 End: 08-03-2024 Bamboo flowsheet Wilber Bertha DO Work Phone: [facility] Start: 08-03-2024 End: 08-03-2024 Bamboo flowsheet Wilber Bertha DO Work Phone: [facility] Start: 07-26-2024 End: 07-26-2024 Bamboo flowsheet Wilber Bertha DO Work Phone: [facility] Start: 07-26-2024 End: 08-01-2024 Bamboo flowsheet Wilber Bertha DO Work Phone: [facility] Start: 07-26-2024 End: 08-01-2024 [facility] Result Encounter Wilber Bertha DO Work Phone: [facility] Unsolicited Start: 07-26-2024 End: 07-26-2024 ambulatory WILBER BERTHA Not Available Start: 07-26-2024 End: 07-26-2024 flow sheet Wilber Bertha DO Work Phone: [facility] Comment on above: 36 weeks gestation o f ; Third trimester ; Need for hepatitis C screening test Start: 07-12-2024 End: 07-12-2024 Bamboo flowsheet Wilber Bertha DO Work Phone: [facility] Start: 07-12-2024 End: 07-12-2024 Bamboo flowsheet Wilber Bertha DO Work Phone: [facility] Start: 07-12-2024 End: 07-12-2024 flow sheet Wilber Bertha DO Work Phone: [facility] Comment on above: 34 weeks gestation o f ; Third trimester Start: 07-12-2024 End: 07-12-2024 ambulatory WILBER BERTHA Not Available Start: 06-28-2024 End: 06-28-2024 Bamboo flowsheet Mariya JIANG Work Phone: [facility] Start: 06-28-2024 End: 06-28-2024 Bamboo flowsheet Mariya JIANG Work Phone: [facility] Start: 06-10-2024 End: 06-10-2024 ambulatory JUDITH ESQUIVEL Not Available Start: 06-10-2024 End: 06-10-2024 ambulatory WILBER BERTHA Not Available Start: 05-31-2024 End: 05-31-2024 Bamboo flowsheet Wilber Bertha DO Work Phone: [facility] Start: 05-31-2024 End: 05-31-2024 Bamboo flowsheet Wilber Bertha DO Work Phone: [facility] Start: 05-31-2024 End: 05-31-2024 flow sheet Wilber Bertha DO Work Phone: [facility] Comment on above: Encounter to [facility]; 28 weeks gestation of ; Third trimester Start: 05-31-2024 End: 05-31-2024 ambulatory WILBER BERTHA Not Available Start: 05-19-2024 End: 05-19-2024 flow sheet Judith Esquivel MD Work Phone: [facility] Comment on above: 26 weeks gestation o f ; Second trimester ; Poor weight gain (0-17); Nausea and vomiting, unspecified vomiting type Start: 05-19-2024 End: 05-19-2024 ambulatory JUDITH ESQUIVEL Not Available Start: 05-15-2024 End: 05-15-2024 Orders Only Judith Esquivel MD Work Phone: [facility] Comment on above: Anemia, unspecified type (Primary Dx) Start: 05-04-2024 End: 05-04-2024 flow sheet Judith Esquivel MD Work Phone: [facility] Comment on above: 24 weeks gestation o f ; Second trimester ; Poor weight gain (0-17); Nausea and vomiting, unspecified vomiting type; Screening for diabetes mellitus (DM); Leukocytes in urine Start: 05-04-2024 End: 05-04-2024 ambulatory JUDITH ESQUIVEL Not Available Start: 05-04-2024 End: 05-04-2024 Bamboo flowsheet uJdith Esquivel MD Work Phone: [facility] Start: 05-04-2024 End: 05-04-2024 Bamboo flowsja Esquivel MD Work Phone: [facility] Start: 04-08-2024 End: 04-08-2024 Bamboo flowsja Esquivel MD Work Phone: [facility] Start: 04-08-2024 End: 04-08-2024 Bamboo flowsja Esquivel MD Work Phone: [facility] Start: 04-08-2024 End: 04-08-2024 flow sheet Judith Esquivel MD Work Phone: [facility] Comment on above: 20 weeks gestation o f ; Second trimester ; Poor weight gain (0-17); Nausea and vomiting, unspecified vomiting type; Leukocytes in urine Start: 04-08-2024 End: 04-08-2024 ambulatory JUDITH ESQUIVEL Not Available Start: 04-05-2024 End: 04-05-2024 ambulatory WILBER STONE Not Available Start: 03-09-2024 End: 03-09-2024 Bamboo flowsja Esquivel MD Work Phone: [facility] Start: 03-09-2024 End: 03-09-2024 Bamboo flowsja Esquivel MD Work Phone: [facility] Start: 03-09-2024 End: 03-09-2024 flow sheet Judith Esquivel MD Work Phone: [facility] Comment on above: Pyuria (Primary Dx); 16 weeks gestation of ; Second trimester ; Poor weight gain (0-17); Nausea and vomiting, unspecified vomiting type; care, subsequent in first trimester; Screening for genetic disease carrier status Start: 03-09-2024 End: 03-09-2024 ambulatory JUDITH ESQUIVEL Not Available Start: 02-27-2024 End: 02-27-2024 ambulatory WILBER BERTHA Not Available Start: 02-24-2024 End: 02-24-2024 Bamboo flowsheet Judith Esquivel MD Work Phone: [facility] Start: 02-24-2024 End: 02-24-2024 Bamboo flowsheet Judith Esquivel MD Work Phone: [facility] Start: 02-24-2024 End: 02-24-2024 flow sheet Judith Esquivel MD Work Phone: [facility] Comment on above: Poor weight gain (0- 17) (Primary Dx); 14 weeks gestation of ; Second trimester ; Ketonuria; Nausea and vomiting, unspecified vomiting type Start: 02-24-2024 End: 02-24-2024 ambulatory JUDITH ESQUIVEL Not Available Start: 02-02-2024 End: 02-02-2024 Initial care visit Judith Esquivel MD Work Phone: [facility] Comment on above: GA: 11w1d Start: 02-02-2024 End: 02-02-2024 ambulatory JUDITH ESQUIVEL Not Available Start: 01-23-2024 End: 01-23-2024 ambulatory WILBER BERTHA Not Available Start: 01-09-2024 End: 01-09-2024 ambulatory WILBER BERTHA Not Available Procedures Date Procedure Procedure Detail Performing Clinician Start: 08-03-2024 Urnls dip stick/tabl et rgnt non-auto w/o micrscp Wilber Bertha DO Work Phone: Start: 07-26-2024 Urnls dip stick/tabl et rgnt non-auto w/o micrscp Wilber Bertha DO Work Phone: Start: 07-26-2024 ALL MISCELLANEOUS TEST Wilber Bertha DO Work Phone: Start: 07-12-2024 Urnls dip stick/tabl et rgnt non-auto w/o micrscp Wilber Bertha DO Work Phone: Start: 05-19-2024 Urnls dip [...] MD Work Phone: Start: 02-02-2024 Iadna chlamydia trac homatis amplified probe tq Judith Esquivel MD Work Phone: Start: 02-02-2024 Drug test prsmv read direct optical obs pr date Judith Esquivel MD Work Phone: Start: 02-02-2024 Urnls dip stick/tabl et rgnt non-auto w/o micrscp Judith Esquivel MD Work Phone: Start: 02-02-2024 THINPREP TIS PAP AND HPV MRNA E6/E7 Judith Esquivel MD Work Phone: Plan of Treatment Date Care Activity Detail Author Start: 08-16-2024 End: 08-16-2024 Patient encounter procedure 08/16/2024 3:30 PM EST Routine [facility] [address] [place] [address] Wilber Stone, DO [address] [place] [address] [facility] Start: 08-16-2024 End: 08-16-2024 Professional / ancillary services management 08/16/2024 3:00 PM EST Ancillary Procedure [facility] [address] [place] [id number] [facility] Start: 08-11-2024 End: 08-11-2024 Patient encounter procedure 08/11/2024 3:20 PM EST Routine [facility] [address] [place] [id number] Wilber Stone, DO [address] [place] [address] [place] [address] Arrived [facility] Comment on above: Arrived Start: 08-11-2024 End: 08-11-2025 US for US OB follow up transabdominal approach Imaging Routine size inconsistent with dates Expected: 08/11/2024, Expires: 08/11/2025 [facility] Work Phone: Comment on above: Expected: 08/11/2024 , Expires: 08/11/2025 Start: 08-03-2024 End: 08-03-2024 Patient encounter procedure [facility] Comment on above: Arrived Start: 07-26-2024 End: 07-26-2025 CULTURE, GROUP B STREP WITH SUSCEPTIBLITY CULTURE, GROUP B STREP WITH SUSCEPTIBLITY Lab Routine Third trimester Expected: 07/26/2024, Expires: 07/26/2025 [facility] Work Phone: Comment on above: Expected: 07/26/2024 , Expires: 07/26/2025 Start: 07-26-2024 End: 07-26-2024 Patient encounter procedure 07/26/2024 1:00 PM EST Routine [facility] [address] [place] [id number] Wilber Stone, DO [address] [place], [place] [address] [place] [address] [facility] Start: 07-12-2024 End: 07-12-2024 Patient encounter procedure [facility] Comment on above: Arrived Start: 06-10-2024 End: 06-10-2024 Patient encounter procedure 06/10/2024 2:00 PM EST Routine [facility] [address] [place] [address] Judith Esquivel MD [address] [place] [address] [facility] Start: 06-10-2024 End: 06-10-2024 Professional / ancillary services management 06/10/2024 1:15 PM EST Ancillary Procedure [facility] [address] [place] [phone] [facility] Start: 05-31-2024 End: 05-31-2024 Patient encounter procedure [facility] Comment on above: Arrived Start: 05-19-2024 End: 05-19-2024 Patient encounter procedure 05/19/2024 2:15 PM EST Routine [facility] [address] [place] [address] Judith Esquivel MD [address] [place] [address] [facility] Start: 05-19-2024 End: 05-19-2024 Professional / ancillary services management 05/19/2024 1:15 PM EST Ancillary Procedure [facility] [address] [place] [address] [facility] Start: 05-04-2024 End: 05-04-2024 Patient encounter procedure [facility] Comment on above: 24 weeks gestation o f ; Second trimester ; Poor weight gain (0-17); Nausea and vomiting, unspecified vomiting type; Screening for diabetes mellitus (DM) Start: 04-08-2024 End: 04-08-2024 Patient encounter procedure 04/08/2024 8:15 AM EDT Routine [facility] [address] [place] [address] Judith Esquivel MD [address] [place] [address] 20 weeks gestation of ; Second trimester ; Poor weight gain (0-17) [facility] Comment on above: 20 weeks gestation o f ; Second trimester ; Poor weight gain (0-17) Start: 04-05-2024 End: 04-05-2024 Patient encounter procedure 04/05/2024 8:45 AM EDT Routine [facility] [address] [place] [phone] Judith Esquivel MD [address] [facility] [address] [place] [address] [facility] Start: 04-05-2024 End: 04-05-2024 Professional / ancillary services management 04/05/2024 8:00 AM EDT Ancillary Procedure [facility] [address] [facility] [address] [place] [phone] [facility] Start: 03-09-2024 End: 03-09-2025 Inheritest(R) Core Panel Inheritest(R) Core Panel Lab Routine care, subsequent in first trimester Screening for genetic disease carrier status Expected: 03/09/2024 (Approximate), Expires: 03/09/2025 [facility] Work Phone: Comment on above: Expected: 03/09/2024 (Approximate), Expires: 03/09/2025 Start: 03-09-2024 End: 03-09-2025 Maternity 21 Maternity 21 Lab Routine care, subsequent in first trimester Screening for genetic disease carrier status Expected: 03/09/2024 (Approximate), Expires: 03/09/2025 [facility] Comment on above: Expected: 03/09/2024 (Approximate), Expires: 03/09/2025 Start: 03-09-2024 End: 03-09-2024 [facility] Comment on above: 16 weeks gestation o f ; Second trimester ; Poor weight gain (0-17); Nausea and vomiting, unspecified vomiting type Start: 02-29-2024 Influenza vaccination Influenza Vacc ine (#1) [facility] Start: 02-27-2024 End: 02-27-2024 Professional / ancillary services management 02/27/2024 8:00 AM EDT Ancillary Procedure [facility] [address] [place] [address] [facility] Start: 02-24-2024 End: 02-24-2024 Patient encounter procedure 02/24/2024 8:45 AM EDT Routine [facility] [address] [place] [address] Judith Esquivel MD [address] [place] [address] 14 weeks gestation of ; Second trimester [facility] Comment on above: 14 weeks gestation o f ; Second trimester Bacteria identified in Urine by Culture Urine culture Microbiology Routine 20 weeks gestation of Second trimester Leukocytes in urine Ordered: 04/08/2024 [facility] Work Phone: Comment on above: Ordered: 04/08/2024 Bacteria identified in Urine by Culture Urine culture Microbiology Routine 24 weeks gestation of Second trimester Leukocytes in urine Ordered: 05/04/2024 [facility] Comment on above: Ordered: 05/04/2024 Hemoglobin [Mass/volume] in Blood Hemoglobin and hematocrit, blood Lab Routine Screening for diabetes mellitus (DM) Ordered: 05/04/2024 [facility] Work Phone: Comment on above: Ordered: 05/04/2024 Hemoglobin A1c/Hemoglobin.total in Blood Hemoglobin A1c Lab Routine 34 weeks gestation of Ordered: 07/12/2024 [facility] Work Phone: Comment on above: Ordered: 07/12/2024 Hepatitis C virus Ab [Presence] in Serum or Plasma by Immunoassay Hepatitis C antibody Lab Routine 34 weeks gestation of Ordered: 07/12/2024 [facility] Comment on above: Ordered: 07/12/2024 Measurement of gluco se 1 hour after glucose challenge for glucose tolerance test Glucose tolerance, 1 hour Lab Routine Screening for diabetes mellitus (DM) Ordered: 05/04/2024 [facility] Comment on above: Ordered: 05/04/2024 QHERIT(TM) EXPANDED CARRIER SCREEN QHERIT(TM) EXPANDED CARRIER SCREEN Lab Routine Screening for genetic disease carrier status Ordered: 02/02/2024 [facility] Comment on above: Ordered: 02/02/2024 QNATAL(R) ADVANCED QNATAL(R) ADV ANCED Lab Routine 18 weeks gestation of Screening for chromosomal anomalies by amniocentesis Ordered: 02/02/2024 [facility] Work Phone: Comment on above: Ordered: 02/02/2024 Payers Date Payer Category Payer Private Health Insurance [employer] [id number] 2023 Private Health Insurance [id number] 2020 [facility] BCBS [id number] [id number] 2020 Unknown BCBS BCBS [id number] [id number] 2020-Present [phone] [address] [place] [address] [id number] 2020 Unknown [id number] 1999 Unknown [id number] 2.16.840.1.418681.3.5 79.2.1259 1999 Unknown [id number] 2.16.840.1.988049.3.5 79.2.1259 1999 Unknown [id number] 2.16.840.1.519988.3.5 79.2.1259 1999 Unknown [id number] 2.16.840.1.110534.3.5 79.2.1259 1999 Unknown [id number] 2.16.840.1.717232.3.5 79.2.1259 1999 Unknown [id number] 2.16.840.1.656540.3.5 79.2.1259 1999 Unknown [id number] 2.16.840.1.351140.3.5 79.2.1259 1999 Unknown [id number] 2.16.840.1.461648.3.5 79.2.1259 1999 Unknown [id number] 2.16.840.1.558382.3.5 79.2.1259 1999 Unknown [id number] 2.16.840.1.047458.3.5 79.2.1259 1999 Unknown [id number] 2.16.840.1.931097.3.5 79.2.1259 1999 Unknown [id number] 2.16.840.1.664685.3.5 79.2.1259 1999 Unknown [id number] 2.16.840.1.259726.3.5 79.2.1259 1999 Unknown [id number] 2.16.840.1.927916.3.5 79.2.1259 1999 Unknown [id number] 2.16.840.1.699135.3.5 79.2.1259 1999 Unknown [id number] 2.16.840.1.119079.3.5 79.2.1259 1999 Unknown [id number] 2.16.840.1.920923.3.5 79.2.1259 1999 Unknown [id number] 2.16.840.1.646478.3.5 79.2.1259 1999 Unknown [id number] 2.16.840.1.263730.3.5 79.2.1259 1999 Unknown [id number] 2.16.840.1.488308.3.5 79.2.1259 Social History Date Type Detail Facility Start: 01-09-2024 Tobacco smoking stat [facility] Never smoked tobacco [facility] Start: 01-09-2024 Tobacco use and exposure Smokeless t obacco non-user [facility] Start: 01-09-2024 End: 08-03-2024 Alcoholic beverage intake Ex-drinker (finding) [facility] Start: 01-09-2024 History of Social function [facility] Start: 01-09-2024 Tobacco use panel [facility] Start: 01-09-2024 Alcohol Comment caffeine intak e: occasionally [facility] Start: 11-30-2023 [facility] Start: 1999 Sex assigned at Not on file [facility] Clinical Notes 02-02-2024 to 08-11-2024 Jana Hernandez LPN - 08/11/2024 3:20 PM APOLINAR Blankenship - 08/03/2024 2:40 PM Real Collier LPN - 07/26/2024 1:00 PM Real Collier LPN - 07/12/2024 1:50 PM EST Note Date & Type Note Facility 08-11-2024 History of Presen t illness Narrative Reason for Appointment: Patient ID: Jamie Esquivel is a 23 y.o. female who presents for No chief complaint on file. Patient presents today for Return OB appointment. MEDICATIONS Current Outpatient Medications Medication Instructions Vit-Fe Fumarate-FA ( 19) 29-1 MG chewable [...] Constitutional: Appearance: Normal appearance. She is well-developed. Genitourinary: Vulva normal. Cardiovascular: Rate and Rhythm: Normal rate and [...] nursing note reviewed. Exam conducted with a pediatric pathologist present. Vitals: Estimated body mass index is 37.87 kg/m as calculated from the following: Height as of 24: 5' 7 . Weight as of this encounter: 241 lb 12.8 oz. BP: 114/76 Patient's last menstrual period was 11/16/2023. ASSESSMENT & PLAN ICD-10-CM 1. 38 weeks gestation of Z3A.38 2. Third trimester Z34.93 Return OB: Patient presents today for a routine obstetrics appointment. Patient is currently 38w3d . Patient states she is doing well but has complaints of being tired due to current . Patient has verbalizes frequent movement. labor precautions was discussed/given and patient was instructed to perform kick counts three times a day. Pt given growth ultrasound to have obtained. No orders of the defined types were placed in this encounter. Follow Up: Patient is to return to office in 1 week for routine OB appointment. Documented by Jana Hernandez LPN on behalf of: Wilber Stone DO documented in this encounter [facility] 08-03-2024 History of Presen t illness Narrative Reason for Appointment: Patient ID: Jamie Esquivel is a 23 y.o. female who presents for Routine Visit Patient presents today for Return OB appointment. MEDICATIONS Current Outpatient Medications Medication Instructions Vit-Fe Fumarate-FA ( 19) 29-1 MG chewable [...] Laterality Date WISDOM TOOTH EXTRACTION 2018 bottom, 2021 top REVIEW OF SYSTEMS Review of Systems: Review of Systems Constitutional: Negative. HENT: Negative. Eyes: Negative. Respiratory: Negative. Cardiovascular: Negative. Gastrointestinal: Negative. Genitourinary: Negative. Musculoskeletal: Negative. Skin: Negative. Neurological: Negative. All other systems reviewed and are negative. Hematological: Negative. Endocrine: Negative. Allergic/Immunologic: Negative. OBJECTIVE Objective: Physical Exam Constitutional: Appearance: Normal appearance. She is normal weight. HENT: Head: Normocephalic. Cardiovascular: Rate and Rhythm: Normal rate. Pulses: Normal pulses. Pulmonary: Effort: Pulmonary effort is normal. Breath sounds: Normal breath sounds. Abdominal: Palpations: Abdomen is soft. Musculoskeletal: General: Normal range of motion. Neurological: General: No focal deficit present. Mental Status: She is alert and oriented to person, place, and time. Psychiatric: Mood and Affect: Mood normal. Behavior: Behavior normal. Thought Content: Thought content normal. Judgment: Judgment normal. Vitals and nursing note reviewed. Vitals: Estimated body mass index is 36.4 kg/m as calculated from the following: Height as of 02/02/24: 5' 7 . Weight as of this encounter: 232 lb 6.4 oz. BP: 110/74 Patient's last menstrual period was 11/16/2023. ASSESSMENT & PLAN ICD-10-CM 1. 37 weeks gestation of Z3A.37 POCT urinalysis dipstick manually resulted 2. Third trimester Z34.93 POCT urinalysis dipstick manually resulted Return OB: Patient presents today for a routine obstetrics appointment. Patient is currently 37w2d . Patient states she is doing well but has complaints of being tired due to current . Patient has verbalizes frequent movement. labor precautions was discussed/given and patient was instructed to perform kick counts three times a day. Orders Placed This Encounter Procedures POCT urinalysis dipstick manually resulted Follow Up: Patient is to return to office in 1 week for routine OB appointment. Documented by APOLINAR Ford on behalf of: Wilber Stone DO documented in this encounter [facility] 07-26-2024 History of Presen t illness Narrative Reason for Appointment: Patient ID: Jamie Esquivel is a 23 y.o. female who [...] Constitutional: Appearance: Normal appearance. She is well-developed. Genitourinary: Vulva normal. Cardiovascular: Rate and Rhythm: Normal rate and [...] nursing note reviewed. Exam conducted with a pediatric pathologist present. Vitals: Estimated body mass index is 35.71 kg/m as calculated from the following: Height as of 02/02/24: 5' 7 . Weight as of this encounter: 228 lb. BP: 124/78 Patient's last menstrual period was 11/16/2023. ASSESSMENT & PLAN ICD-10-CM 1. 36 weeks gestation of Z3A.36 POCT urinalysis dipstick manually resulted 2. Third trimester Z34.93 CULTURE, GROUP B STREP WITH SUSCEPTIBLITY CULTURE, GROUP B STREP WITH SUSCEPTIBLITY CANCELED: Hepatitis C antibody 3. Need for hepatitis C screening test Z11.59 CANCELED: Hepatitis C antibody Patient is doing well but has complaints of being tired and having maternal discomfort due to . Patient verbalized frequent movement and was instructed to perform kick counts three times per day. labor precautions were given, LARC consent was signed/declined, and GBS was obtained. Cervical check was performed and patient is 1cm dilated. Discussed car trip to [place] and labor and when not to travel. Patient declines to have Hepatitis C lab work drawn. Orders Placed This Encounter Procedures CULTURE, GROUP B STREP WITH SUSCEPTIBLITY POCT urinalysis dipstick manually resulted Follow Up: Patient is to return to office in 1 week for routine OB appointment Documented by Marcella Collier LPN on behalf of: Wilber Stone DO documented in this encounter [facility] 07-12-2024 History of Presen t illness Narrative Reason for Appointment: Patient ID: Jamie Esquivel is a 23 y.o. female who [...] nursing note reviewed. Exam conducted with a pediatric pathologist present. Vitals: Estimated body mass index is 35.08 kg/m as calculated from the following: Height as of 02/02/24: 5' 7 . Weight as of this [...] Wilber Stone DO documented in this encounter [facility] 05-31-2024 History of Presen t illness Narrative Reason for Appointment: Patient ID: Jamie Esquivel is a 23 y.o. female who presents for [facility] Patient presents today for to meet [...] nursing note reviewed. Exam conducted with a pediatric pathologist present. Vitals: Estimated body mass index is 32.73 kg/m as calculated from the following: Height as of 02/02/24: 5' 7 . Weight as of 05/19/24: 209 lb. BP: Patient's last menstrual period was 11/16/2023. ASSESSMENT & PLAN ICD-10-CM 1. Encounter to establish care Z76.89 2. 28 weeks gestation of Z3A.28 3. Third trimester Z34.93 Pt presents to meet Dr Stone, pt is 28 weeks at this time. All questions answered. Pt is deciding whether to come to [place] or [facility] for delivery- advised pt if she wants to deliver with Dr Stone transfer to our office at 32 weeks. Pt voiced understanding. Documented by Jana Hernandez LPN on behalf of: Wilber Stone DO documented in this encounter [facility] 05-19-2024 History of Presen t illness Narrative Subjective Jamie Esquivel is a 23 y.o. at 26w3d with a working estimated date of delivery of 08/22/2024, by Last Menstrual Period who presents for a routine visit. She denies vaginal bleeding, leakage of fluid, decreased movements, or contractions. Efw22% CL 38.1mm edc 08/22 Her is complicated by: Efw 38% Pt has had peds appt With [facility] The patient reports that her feet [...] program She has considered finding a pp oven unloader, The patient inquires about collecting colostrum early and is advised to start at 35-36 weeks of . She is instructed not to engage in nipple stimulation as it can cause contractions and to look for passive collection cups for colostrum collection. The patient reports receiving her Tdap, COVID, and flu shots and plans to get her RSV shot at [facility]. Objective Physical Exam weight: 209 lb Expected [...] C to enhance absorption. 6. plan and oven unloader: - Patient interested in natural and considering a pp oven unloader - Plan: a) Discuss the benefits and [...] - Dr Stone documented in this encounter [facility] 05-15-2024 History of Presen t illness Narrative Kerry documented in this encounter [facility] 05-04-2024 History of Presen t illness Narrative Subjective Jamie Esquivel is a 23 y.o. at 24w2d [...] leave, as she does not qualify for [place]. Objective Physical Exam weight: 207 lb Expected [...] results found for: GLUF , GLUT1 , [id number] , [id number] Imaging The most recent ultrasound was performed [...] Tdap a couple of months ago at [facility]. b) RSV: Recommend receiving RSV vaccine at health department or Dr. Montes's practice before 28-30 weeks gestation. c) COVID and flu: Vaccines available as desired. d) Advise patient's partner to check with Dr. Montes about receiving RSV vaccine. 5. plan and provider concerns: - Plan: a) Encourage patient to schedule an appointment with Dr. Stone at [facility] to discuss plan and address concerns regarding racial disparities in maternal care. b) Reassure patient that her concerns will be heard and respected during the process. c) Discuss the possibility of VBACs and C-sections as medically necessary. 6. Short-term disability paperwork: - Plan: a) Assist patient in completing and submitting short-term disability medical leave paperwork as needed. Subjective Jamie Esquivel is a 23 y.o. at 24w2d [...] a routine visit. documented in this encounter [facility] 04-08-2024 History of Presen t illness Narrative Subjective Jamie Esquivel is a 23 y.o. at 20w4d [...] maternity 21 results documented in this encounter [facility] 03-09-2024 History of Presen t illness Narrative Subjective Jamie Esquivel is a 23 y.o. at 16w2d [...] The patient is interested in undergoing the Q-Syd[place] chromosome test. Her is complicated by: PWG [...] on increasing protein intake as per the vending machine collector's recommendations. - Plan: a) Encourage the patient to continue incorporating protein-rich foods into their diet and not to overthink it. b) Reassess nutritional status at the next visit. 5. heart rate and movement - heart rate is 154 bpm, which is within the normal range. - Patient has not felt the baby move yet but is experiencing flutters. - 6. Q-Sydney testing - Patient expresses interest in undergoing [...] AUS 4 weeks documented in this encounter [facility] 02-24-2024 History of Presen t illness Narrative Leukocytes in urine Subjective Jamie Esquivel is a 23 y.o. at 14w2d [...] grown tired of them. 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 Note was given [...] - Plan: a) Refer patient to a any commodity sales deliverer for nutritional counseling and meal planning. b) Encourage patient to consume breakfast and consider meal replacement options such as protein drinks. c) Monitor ketone levels in urine during follow-up visits. Zofran pump offered and pt does not wish 5. Work-related eating challenges: - Plan: a) Collaborate with the any commodity sales deliverer to develop strategies for eating during work [...] to assess growth documented in this encounter [facility] 02-02-2024 History of Presen t illness Narrative Subjective Jamie Esquivel is a 23 y.o. at 11w1d [...] and Keflex ordered documented in this encounter [facility] Evaluation note Diagnosis 20 weeks gestation [...] [facility] Diagnosis 36 weeks gestation of Third trimester state, incidental Need for hepatitis C screening test Special screening examination for other specified viral diseases [facility] Diagnosis 37 weeks gestation of Third trimester state, incidental [facility] Diagnosis 38 weeks gestation of Third trimester state, incidental size inconsistent with dates [facility] Consultation (Routine) - Authorized Specialty Diagnoses / Procedures Referred By Kristen t Referred To Contact Nutrition / Behavioral Health Diagnoses Poor weight gain (0-17) Procedures MA OFFICE/OUTPATIENT NEW HIGH MDM 60 MINUTES Judith Esquivel MD [address] [place] [address] Shauna Phelps, MS, RDN, LD, CHES [address] [place], [place] Referral ID Status Reason Start Date Expiration Date Visits Requested Visits Authorized [id number] Authorized Consult and Treat 02/24/2024 08/22/2024 1 1 [facility] Healthcare Summary Purpose Family History No Family History Records Found Advance Directives No Advanced Directives Records Found Additional Source Comments Care Teams (unrecognized sec tion and content) 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 Start Date End Date Unallocated, Ricky Hernandez MD [address] [place] [address] [place] [address] PCP - General Family Medicine 01/09/24 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 Start Date End Date Unallocated, Ricky Hernandez MD [address] [place] [address] [place] [address] PCP - General Family Medicine 01/09/24 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 Start Date End Date Unallocated, Ricky Hernandez MD [facility] [place] [address] PCP - General Family Medicine 01/09/24 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 Start Date End Date Unallocated, Ricky Hernandez MD [address] [place] [address] [facility] [facility] [place] [address] PCP - General Family Medicine 01/09/24 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 Start Date End Date Unallocated, Ricky Hernandez MD [facility] [place] [address] PCP - General Family Medicine 01/09/24 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 Start Date End Date Unallocated, [place] [address] PCP - General Family Medicine 01/09/24 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 Start Date End Date Unallocated, [place] [address] PCP - General Family Medicine 01/09/24 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 Start Date End Date Unallocated, [place] [address] PCP - General Family Medicine 01/09/24 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 Start Date End Date Unallocated, [place] [address] PCP - General Family Medicine 01/09/24 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 Start Date End Date Unallocated, [place] [address] PCP - General Family Medicine 01/09/24 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 Start Date End Date Unallocated, [place] [address] PCP - General Family Medicine 01/09/24 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 Start Date End Date Unallocated, [place] [address] PCP - General Family Medicine 01/09/24 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 Start Date End Date Unallocated, [place] [address] PCP - General Family Medicine 01/09/24 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 Start Date End Date Unallocated, [place] [address] PCP - General Family Medicine 01/09/24 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 Start Date End Date Unallocated, [facility] Provider, [address] [place] [address] PCP - General Family Medicine 01/09/24 Reason for Visit (unrecogniz ed section and content) Reason Comments Establish Care Specialty Diagnoses / Procedures Referred By Contac t Referred To Contact Obstetrics and Gynecology Diagnoses Encounter for supervision of normal first , first trimester Procedures please check global maternity benefits [facility] 08/22/24 Judith Esquivel MD [address] [place] [address] Judith Esquivel MD [address] [facility] [address] [place] [address] Referral ID Status Reason Start Date Expiration Date V isits Requested Visits Authorized [id number] Closed Other 01/12/2024 07/10/2024 1 1 Reason Comments Routine Visit INFORMATION SOURCE (unrecogn ized section and content) DATE CREATED AUTHOR 08/17/2024 [facility] EPIC FOR RECORDS PERTAINING TO PATIENTS [...] BE BASED ON THE PRIMARY CLINICAL RECORDS. [employer] provides no warranty or guarantee of the accuracy or completeness of information in this document.
[2024-08-17 22:00] LABS: Bilirubin Urine NEGATIVE (NEGATIVE); Blood Urine SMALL (NEGATIVE); Clarity Urine CLEAR (CLEAR); Color Urine LT. YELLOW (YELLOW); Glucose Urine UA NEGATIVE (NEGATIVE); Ketones Urine NEGATIVE (NEGATIVE); Leukocyte Esterase Urine LARGE (NEGATIVE); Nitrite Urine NEGATIVE (NEGATIVE); Protein Urine NEGATIVE (NEG/TRACE); Urobilinogen Urine 0.2 EU/dL (0.2-1.0); pH Urine 6.5 (5.0-9.0)
[2024-08-17 22:01] LABS: Urine Microscopic Indicated YES
[2024-08-17 22:07] LABS: Bacteria Urine SMALL #/HPF (NONE SEEN); Mucus Urine NONE SEEN (NONE SEEN)
[2024-08-17 22:08] LABS: Cast Seen? NONE SEEN #/LPF (NONE SEEN); Crystals Seen? None Seen #/HPF (None Seen); Squamous Epithelial Cell Urine MANY #/LPF (NONE/RARE); Urine Culture Indicated YES-LC
--- OUTSIDE RECORDS SUMMARY | 2024-08-17 22:34 | XMS_ITS | CCD ---
Author Organization [facility] Care Team Providers Care Dsp Engineer Name Role Phone Unallocated MD, Noms Provider [...] UA Negative Negative - 4(70) +++ mg/dL [facility] Blood, UA Positive Negative - 50 Choco/mcL [facility] Comment on above: trace-intact Clarity, UA Clear [facility] Color, UA Yellow [facility] Glucose, UA Negative Negative - 2000(110) ++++ mg/dL [facility] Interpretation and review of laboratory results Abnormal [facility] Ketones, UA Positive Negative - 160(16) ++++ mg/dL [facility] Comment on above: trace Leukocytes, UA Positive Negative - 500+++ Abhishek/mcL [facility] Comment on above: large Nitrite, UA Negative Negative - Positive [facility] pH, UA 7 5 - 9 [facility] Protein, UA Positive Negative - 2000(20) ++++ mg/dL [facility] Comment on above: 30 Spec Grav, UA 1.02 1 - 1.03 [facility] Urobilinogen, UA 0.2 0.2 - 12 mg/dL [facility] ALL MISCELLANEOUS TESTon MISCELLANEOUS TEST COMMENT . [facility] Comment on above: Test Ordered: 150729 Strep Gp B Culture+Rflx Strep Gp B Culture+Rflx Positive [A ] CB Reference Range: Negative Centers for Disease Control and Prevention (CDC) and [place] [employer] of Obstetricians and Gynecologists (ACOG) guidelines [...] at high risk for anaphylaxis. Performed at: [address] [id number] School Adjustment Counselor: Quoc Domínguez PhD, Phone: [phone] Group B Streptococcus Colonization Detection Culture With Re [facility] Urinalysis macro (dipstick) panel (U)on 07-26-2024 Bilirubin, UA Negative Negative - 4(70) +++ mg/dL [facility] Blood, UA Positive Negative - 50 Choco/mcL [facility] Clarity, UA Clear [facility] Color, UA Yellow [facility] Glucose, UA Negative Negative - 1999(110) ++++ mg/dL [facility] Interpretation and review of laboratory results Abnormal [facility] Ketones, UA Negative Negative - 160(16) ++++ mg/dL [facility] Leukocytes, UA Positive Negative - 500+++ Abhishek/mcL [facility] Nitrite, UA Negative Negative - Positive [facility] pH, UA 7 5 - 9 [facility] Protein, UA Trace Negative - 1999(20) ++++ mg/dL [facility] Spec Grav, UA 1.025 1 - 1.03 [facility] Urobilinogen, UA 0.2 0.2 - 12 mg/dL [facility] Urinalysis macro (dipstick) panel (U)on 07-12-2024 Bilirubin, UA Negative Negative - 4(70) +++ mg/dL [facility] Blood, UA Negative Negative - 50 Choco/mcL [facility] Clarity, UA Clear [facility] Color, UA Yellow [facility] Glucose, UA Negative Negative - 1999(110) ++++ mg/dL [facility] Interpretation and review of laboratory results Abnormal [facility] Ketones, UA Negative Negative - 160(16) ++++ mg/dL [facility] Leukocytes, UA Positive Negative - 500+++ Abhishek/mcL [facility] Nitrite, UA Negative Negative - Positive [facility] pH, UA 7 5 - 9 [facility] Protein, UA Positive Negative - 1999(20) ++++ mg/dL [facility] Spec Grav, UA 1.025 1 - 1.03 [facility] Urobilinogen, UA 0.2 0.2 - 12 mg/dL [facility] Urinalysis macro (dipstick) panel (U)Ordered By: Cathy Ferreira on 05-19-2024 Bilirubin, UA Negative Negative - 4(70) +++ mg/dL [facility] Blood, UA Negative Negative - 50 Choco/mcL [facility] Clarity, UA Clear [facility] Color, UA Yellow [facility] Glucose, UA Negative Negative - 1999(110) ++++ mg/dL [facility] Interpretation and review of laboratory results Abnormal [facility] Ketones, UA Negative Negative - 160(16) ++++ mg/dL [facility] Leukocytes, UA Positive Negative - 500+++ Abhishek/mcL [facility] Nitrite, UA Negative Negative - Positive [facility] pH, UA 7.5 5 - 9 [facility] Protein, UA Negative Negative - 1999(20) ++++ mg/dL [facility] Spec Grav, UA 1.01 1 - 1.03 [facility] Urobilinogen, UA 1.0 0.2 - 12 mg/dL [facility] Urinalysis macro (dipstick) panel (U)on 05-04-2024 Bilirubin, UA Negative Negative - 4(70) +++ mg/dL [facility] Blood, UA Negative Negative - 50 Choco/mcL [facility] Clarity, UA Clear [facility] Color, UA Yellow [facility] Glucose, UA Negative Negative - 1999(110) ++++ mg/dL [facility] Interpretation and review of laboratory results Normal [facility] Ketones, UA Negative Negative - 160(16) ++++ mg/dL [facility] Leukocytes, UA Positive Negative - 500+++ Abhishek/mcL [facility] Nitrite, UA Negative Negative - Positive [facility] pH, UA 8 5 - 9 [facility] Protein, UA Negative Negative - 1999(20) ++++ mg/dL [facility] Spec Grav, UA 1.005 1 - 1.03 [facility] Urobilinogen, UA 1.0 0.2 - 12 mg/dL [facility] Urinalysis macro (dipstick) panel (U)on 04-08-2024 Bilirubin, UA Negative Negative - 4(70) +++ mg/dL [facility] Blood, UA Negative Negative - 50 Choco/mcL [facility] Clarity, UA Clear [facility] Color, UA Yellow [facility] Glucose, UA Negative Negative - 1999(110) ++++ mg/dL [facility] Interpretation and review of laboratory results Abnormal [facility] Ketones, UA Negative Negative - 160(16) ++++ mg/dL [facility] Leukocytes, UA Positive Negative - 500+++ Abhishek/mcL [facility] Nitrite, UA Negative Negative - Positive [facility] pH, UA 8.5 5 - 9 [facility] Protein, UA Negative Negative - 1999(20) ++++ mg/dL [facility] Spec Grav, UA 1.015 1 - 1.03 [facility] Urobilinogen, UA 1.0 0.2 - 12 mg/dL [facility] Urinalysis macro (dipstick) panel (U)Ordered By: Cathy Ferreira on 03-09-2024 Bilirubin, UA Negative Negative - 4(70) +++ mg/dL [facility] Blood, UA Negative Negative - 50 Choco/mcL [facility] Clarity, UA Clear [facility] Color, UA Yellow [facility] Glucose, UA Negative Negative - 1999(110) ++++ mg/dL [facility] Interpretation and review of laboratory results Abnormal [facility] Ketones, UA Negative Negative - 160(16) ++++ mg/dL [facility] Leukocytes, UA Positive Negative - 500+++ Abhishek/mcL [facility] Nitrite, UA Negative Negative - Positive [facility] pH, UA 8.5 5 - 9 [facility] Protein, UA Negative Negative - 1999(20) ++++ mg/dL [facility] Spec Grav, UA 1.005 1 - 1.03 [facility] Urobilinogen, UA 1.0 0.2 - 12 mg/dL [facility] Urinalysis macro (dipstick) panel (U)on 02-24-2024 Bilirubin, UA Negative Negative - 4(70) +++ mg/dL [facility] Blood, UA Negative Negative - 50 Choco/mcL [facility] Clarity, UA Clear [facility] Color, UA Yellow [facility] Glucose, UA Negative Negative - 1999(110) ++++ mg/dL [facility] Interpretation and review of laboratory results Abnormal [facility] Ketones, UA Negative Negative - 160(16) ++++ mg/dL [facility] Leukocytes, UA Positive Negative - 500+++ Abhishek/mcL [facility] Nitrite, UA Negative Negative - Positive [facility] pH, UA 8.0 5 - 9 [facility] Protein, UA Negative Negative - 1999(20) ++++ mg/dL [facility] Spec Grav, UA 1.010 1 - 1.03 [facility] Urobilinogen, UA 1.0 0.2 - 12 mg/dL [facility] Laboratory - Cytologyon It Service Technician Cyto stain Nom (Cvx/Vag) [ID] [facility] Comment on above: CMB, CT(ASCP) CT Scr eening Location: [facility], [address] [place] [address] Cytology study comment Cyto stain Saravanan (Cvx/Vag) [Interp] [facility] Comment on above: This Pap test has be en evaluated with computer assisted technology. Microscopic observation Cyto stain Nom (Cvx) [facility] Comment on above: Cytology Results: Ne gative for intraepithelial lesion or malignancy. Specimen source Cyto stain N om (Cvx/Vag) [facility] Comment on above: None given Statement of adequacy Cyto stain (Cvx/Vag) [Interp] [facility] Comment on above: Satisfactory for vicente luation. Endocervical/transformation zone component absent. Laboratory - Microbiology an d Antimicrobial susceptibilityon 02-03-2024 HPV E6+E7 mRNA NITHYA+probe Ql (Cvx) Not detected Not Detected [facility] Comment on above: Methodology: Transcr iption-Mediated Amplification This assay detects E6/E7 viral messenger RNA (mRNA) from 14 high-risk HPV types (16,18,31,33,35,39,45,51,52,56,58,59,66,68). Cervical sources are required for HPV testing. If a vaginal source from a patient who has had a total hysterectomy with removal of cervix was submitted, please contact the testing laboratory for alternative testing options. For additional information, please refer to http://[email or web address].[email or web address]/faq/[email or web address] (This link if provided for information/ educational purposes only.) No Panel Informationon 02-02 (ALWAYS MESSAGE) [facility] Comment on above: EXPLANATORY NOTE: The [...] None given Last menstrual period start date [facility] Comment on above: None given Performing Organization Information Site ID: [id number] Name: [facility] Address: [address] [place] [address], [address] [place] [id number] Director: Ketan Sutherland MD [facility] Drugs of abuse panel Screen (U)on 02-02-2024 Amphetamines Ql (U) Negative [facility] Barbiturates Ql (U) Negative [facility] Benzodiazepines Ql (U) Negative [facility] Benzoylecgonine Ql (U) Negative [facility] Carboxy tetrahydrocannabinol (Mec) [Mass/Mass] Negative [facility] Interpretation and review of laboratory results Normal [facility] Methadone (U) [Mass/Vol] Negative [facility] Methylenedioxymethamphetamin e Screen Ql (U) Negative [facility] Morphine (U) [Mass/Vol] Negative [facility] Opiates Ql (U) Negative [facility] oxyCODONE Ql (U) Negative [facility] Phencyclidine Ql (U) Negative [facility] Reference Lab Test ID Negative [facility] Tricyclic antidepressants [Mass/Vol] Negative [facility] Laboratory - Specimen inform ationon 02-02-2024 Specimen type Nom (Spec) swab [facility] No Panel Informationon 02-01 GONORRHOEAE DNA(PCR) Negative [facility] Interpretation and review of laboratory results Normal [facility] Urinalysis macro (dipstick) panel (U)Ordered By: Cathy Ferreira on 02-02-2024 Bilirubin, UA Negative Negative - 4(70) +++ mg/dL [facility] Blood, UA Negative Negative - 50 Choco/mcL [facility] Clarity, UA Clear [facility] Color, UA Yellow [facility] Glucose, UA Negative Negative - 2000(110) ++++ mg/dL [facility] Interpretation and review of laboratory results Abnormal [facility] Ketones, UA Positive Negative - 160(16) ++++ mg/dL [facility] Leukocytes, UA Positive Negative - 500+++ Abhishek/mcL [facility] Nitrite, UA Negative Negative - Positive [facility] pH, UA 6.5 5 - 9 [facility] Protein, UA Negative Negative - 1999(20) ++++ mg/dL [facility] Spec Grav, UA 1.025 1 - 1.03 [facility] Urobilinogen, UA 1.0 0.2 - 12 mg/dL [facility] Vital Signs Date Time Vital Sign Value Performing Clinician Faci lity 08-11-2024 15:52-0500 Body mass index (BMI) [Ratio] 37.87 kg/m2 Wilber Bertha DO Work Phone: [facility] 08-11-2024 15:52-0500 Body weight 109.68 kg Wilber Bertha DO Work Phone: [facility] 08-11-2024 15:52-0500 Diastolic blood pressure 76 mm[Hg] Wilber Bertha DO Work Phone: [facility] 08-11-2024 15:52-0500 Systolic blood pressure 114 mm[Hg] Wilber Bertha DO Work Phone: [facility] 08-03-2024 15:17-0500 Body mass index (BMI) [Ratio] 36.4 kg/m2 Wilber Bertha DO Work Phone: [facility] 08-03-2024 15:17-0500 Body weight 105.42 kg Wilber Bertha DO Work Phone: [facility] 08-03-2024 15:17-0500 Diastolic blood pressure 74 mm[Hg] Wilber Bertha DO Work Phone: [facility] 08-03-2024 15:17-0500 Systolic blood pressure 110 mm[Hg] Wilber Bertha DO Work Phone: [facility] 07-26-2024 13:20-0500 Body mass index (BMI) [Ratio] 35.71 kg/m2 Wilber Bertha DO Work Phone: [facility] 07-26-2024 13:20-0500 Body weight 103.42 kg Wilber Bertha DO Work Phone: [facility] 07-26-2024 13:20-0500 Diastolic blood pressure 78 mm[Hg] Wilber Bertha DO Work Phone: [facility] 07-26-2024 13:20-0500 Systolic blood pressure 124 mm[Hg] Wilber Bertha DO Work Phone: [facility] 07-12-2024 14:28-0500 Body mass index (BMI) [Ratio] 35.08 kg/m2 Wilber Bertha DO Work Phone: [facility] 07-12-2024 14:28-0500 Body weight 101.61 kg Wilber Bertha DO Work Phone: [facility] 07-12-2024 14:28-0500 Diastolic blood pressure 74 mm[Hg] Wilber Bertha DO Work Phone: [facility] 07-12-2024 14:28-0500 Systolic blood pressure 122 mm[Hg] Wilber Bertha DO Work Phone: [facility] 05-19-2024 14:36-0500 Body mass index (BMI) [Ratio] 32.73 kg/m2 Judith Esquivel MD Work Phone: [facility] 05-19-2024 14:36-0500 Body weight 94.8 kg Judith Esquivel MD Work Phone: [facility] 05-19-2024 14:36-0500 Diastolic blood pressure 60 mm[Hg] Judith Esquivel MD Work Phone: [facility] 05-19-2024 14:36-0500 Systolic blood pressure 98 mm[Hg] Judith Esquivel MD Work Phone: [facility] 05-04-2024 16:26-0500 Body mass index (BMI) [Ratio] 32.42 kg/m2 Judith Esquivel MD Work Phone: [facility] 05-04-2024 16:26-0500 Body weight 93.89 kg Judith Esquivel MD Work Phone: [facility] 05-04-2024 16:26-0500 Diastolic blood pressure 58 mm[Hg] Judith Esquivel MD Work Phone: [facility] 05-04-2024 16:26-0500 Systolic blood pressure 100 mm[Hg] Judith Esquivel MD Work Phone: [facility] 04-08-2024 08:23-0400 Body mass index (BMI) [Ratio] 30.85 kg/m2 Judith Esquivel MD Work Phone: [facility] 04-08-2024 08:23-0400 Body weight 89.36 kg Judith Esquivel MD Work Phone: [facility] 04-08-2024 08:23-0400 Diastolic blood pressure 62 mm[Hg] Judith Esquivel MD Work Phone: [facility] 04-08-2024 08:23-0400 Systolic blood pressure 100 mm[Hg] Judith Esquivel MD Work Phone: [facility] 03-09-2024 08:53-0400 Body mass index (BMI) [Ratio] 29.76 kg/m2 Judith Esquivel MD Work Phone: [facility] 03-09-2024 08:53-0400 Body weight 86.18 kg Judith Esquivel MD Work Phone: [facility] 03-09-2024 08:53-0400 Diastolic blood pressure 60 mm[Hg] Judith Esquivel MD Work Phone: [facility] 03-09-2024 08:53-0400 Systolic blood pressure 100 mm[Hg] Judith Esquivel MD Work Phone: [facility] 02-24-2024 09:01-0400 Body mass index (BMI) [Ratio] 29.44 kg/m2 Judith Esquivel MD Work Phone: [facility] 02-24-2024 09:01-0400 Body weight 85.28 kg Judith Esquivel MD Work Phone: [facility] 02-24-2024 09:01-0400 Diastolic blood pressure 58 mm[Hg] Judith Esquivel MD Work Phone: [facility] 08-27-2024 09:01-0400 Systolic blood pressure 98 mm[Hg] Judith Esquivel MD Work Phone: [facility] 02-02-2024 13:15-0400 Body height 170.2 cm Judith Esquivel MD Work Phone: [facility] 02-02-2024 12:55-0400 Body mass index (BMI) [Ratio] 29.76 kg/m2 Judith Esquivel MD Work Phone: [facility] 02-02-2024 12:55-0400 Body weight 86.18 kg Judith Esquivel MD Work Phone: [facility] 02-02-2024 12:55-0400 Diastolic blood pressure 68 mm[Hg] Judith Esquivel MD Work Phone: [facility] 02-02-2024 12:55-0400 Systolic blood pressure 108 mm[Hg] Judith Esquivel MD Work Phone: [facility] Healthcare Encounters Encounter Date Encounter Type Care Provider Facility Start: 08-16-2024 End: 08-16-2024 ambulatory WILBER BERTHA Not Available Start: 08-11-2024 End: 08-11-2024 flow sheet Wilber Bertha DO Work Phone: [facility] Comment on above: 38 weeks gestation o f ; Third trimester ; size inconsistent with dates Start: 08-11-2024 End: 08-11-2024 ambulatory WILBER BERTHA Not Available Start: 08-11-2024 End: 08-11-2024 Bamboo flowsheet Wilber Bertha DO Work Phone: [facility] Start: 08-11-2024 End: 08-11-2024 Bamboo [...] 06-28-2024 Bamboo flowsheet Mariya JIANG Work Phone: [facility] Start: 06-10-2024 End: 06-10-2024 ambulatory JUDITH ESQUIVEL Not Available Start: 06-10-2024 End: 06-10-2024 ambulatory WILBER BERTHA Not Available Start: 05-31-2024 End: 05-31-2024 Bamboo flowsheet Wilber Bertha DO Work Phone: [facility] Start: 05-31-2024 End: 05-31-2024 Bamboo flowsheet Wilber Bertha DO Work Phone: [facility] Start: 05-31-2024 End: 05-31-2024 flow sheet Wilber Bertha DO Work Phone: [facility] Comment on above: Encounter to [facility]; 28 weeks gestation of ; Third trimester Start: 05-31-2024 End: 05-31-2024 ambulatory WILBER BERTHA Not Available Start: 05-19-2024 End: 05-19-2024 flow sheet Judith Esquivel MD Work Phone: [facility] Comment on above: 26 weeks gestation o f ; Second trimester ; Poor weight gain (0-17); Nausea and vomiting, unspecified vomiting type Start: 05-19-2024 End: 05-19-2024 ambulatory JUDITH ESQUIVEL Not Available Start: 05-15-2024 End: 05-15-2024 Orders Only Judith Esquivel MD Work Phone: [facility] Comment on above: Anemia, unspecified type (Primary Dx) Start: 05-04-2024 End: 05-04-2024 flow sheet Judith Esquivel MD Work Phone: [facility] Comment on above: 24 weeks gestation o f ; Second trimester ; Poor weight gain (0-17); Nausea and vomiting, unspecified vomiting type; Screening for diabetes mellitus (DM); Leukocytes in urine Start: 05-04-2024 End: 05-04-2024 ambulatory JUDITH ESQUIVEL Not Available Start: 05-04-2024 End: 05-04-2024 Bamboo flowsheet Judith Esquivel MD Work Phone: [facility] Start: 05-04-2024 End: 05-04-2024 Bamboo flowsja Esquivel MD Work Phone: [facility] Start: 04-08-2024 End: 04-08-2024 Bamboo flowsja Esquivel MD Work Phone: [facility] Start: 04-08-2024 End: 04-08-2024 Bamboo flowsja Esquivel MD Work Phone: [facility] Start: 04-08-2024 End: 04-08-2024 flow sheet Judith Esquivel MD Work Phone: [facility] Comment on above: 20 weeks gestation o f ; Second trimester ; Poor weight gain (0-17); Nausea and vomiting, unspecified vomiting type; Leukocytes in urine Start: 04-08-2024 End: 04-08-2024 ambulatory JUDITH ESQUIVEL Not Available Start: 04-05-2024 End: 04-05-2024 ambulatory WILBER STONE Not Available Start: 03-09-2024 End: 03-09-2024 Bamboo flowsja Esquivel MD Work Phone: [facility] Start: 03-09-2024 End: 03-09-2024 Bamboo flowsja Esquivel MD Work Phone: [facility] Start: 03-09-2024 End: 03-09-2024 flow sheet Judith Esquivel MD Work Phone: [facility] Comment on above: Pyuria [...] Bamboo flowsheet Judith Esquivel MD Work Phone: [facility] Start: 02-24-2024 End: 02-24-2024 Bamboo flowsheet Judith Esquivel MD Work Phone: [facility] Start: 02-24-2024 End: 02-24-2024 flow sheet Judith Esquivel MD Work Phone: [facility] Comment on above: Poor weight gain (0- 17) (Primary Dx); 14 weeks gestation of ; Second trimester ; Ketonuria; Nausea and vomiting, unspecified vomiting type Start: 02-24-2024 End: 02-24-2024 ambulatory JUDITH ESQUIVEL Not Available Start: 02-02-2024 End: 02-02-2024 Initial care visit Judith Esquivel MD Work Phone: [facility] Comment on above: GA: [...] PM EST Routine [facility] [address] [address] Wliber Stone, DO [address] [place] [address] [facility] Start: 08-16-2024 End: 08-16-2024 Professional / ancillary services management 08/16/2024 3:00 PM EST Ancillary Procedure [facility] [address] [id number] [facility] Start: 08-11-2024 End: 08-11-2024 Patient encounter procedure 08/11/2024 3:20 PM EST Routine [facility] [address] [id number] Wilber Stone, DO [address] [place] [address] [place] [address] Arrived [facility] Comment on above: [...] PM EST Routine [facility] [address] [id number] Wilber Stone, DO [address] [place], [place] [address] [place] [address] [facility] Start: 07-12-2024 End: 07-12-2024 Patient encounter procedure [facility] Comment on above: Arrived Start: 06-10-2024 End: 06-10-2024 Patient encounter procedure 06/10/2024 2:00 PM EST Routine [facility] [address] [place] [address] Judith Esquivel MD [address] [place] [address] [facility] Start: 06-10-2024 End: 06-10-2024 Professional / ancillary services management 06/10/2024 1:15 PM EST Ancillary Procedure [facility] [address] [place] [id number] [facility] Start: 05-31-2024 End: 05-31-2024 Patient encounter procedure [facility] Comment on above: Arrived Start: 05-19-2024 End: 05-19-2024 Patient encounter procedure 05/19/2024 2:15 PM EST Routine [facility] [address] [place] [address] Judith Esquivel MD [address] [place] [address] [facility] Start: 05-19-2024 End: 05-19-2024 Professional / ancillary services management 05/19/2024 1:15 PM EST Ancillary Procedure [facility] [address] [place] [phone] [facility] Start: 05-04-2024 End: 05-04-2024 Patient encounter procedure [facility] Comment on above: 24 weeks gestation o f ; Second trimester ; Poor weight gain (0-17); Nausea and vomiting, unspecified vomiting type; Screening for diabetes mellitus (DM) Start: 04-08-2024 End: 04-08-2024 Patient encounter procedure 04/08/2024 8:15 AM EDT Routine [facility] [address] [place] [address] Judith Esquivel MD [address] [place] [address] 20 weeks gestation of ; Second trimester ; Poor weight gain (0-17) [facility] Comment on above: 20 weeks gestation o f ; Second trimester ; Poor weight gain (0-17) Start: 04-05-2024 End: 04-05-2024 Patient encounter procedure 04/05/2024 8:45 AM EDT Routine [facility] [address] [place] [id number] Judith Esquivel MD [address] [facility] [address] [place] [address] [facility] Start: 04-05-2024 End: 04-05-2024 Professional / ancillary services management 04/05/2024 8:00 AM EDT Ancillary Procedure [facility] [address] [facility] [address] [place] [id number] [facility] Start: 03-09-2024 End: 03-09-2025 Inheritest(R) Core Panel Inheritest(R) Core Panel Lab Routine care, subsequent in first trimester Screening for genetic disease carrier status Expected: 03/09/2024 (Approximate), Expires: 03/09/2025 [facility] Work Phone: Comment on above: Expected: 03/09/2024 (Approximate), Expires: 03/09/2025 Start: 03-09-2024 End: 03-09-2025 Maternity 21 Maternity 21 Lab Routine care, subsequent in first trimester Screening for genetic disease carrier status Expected: 03/09/2024 (Approximate), Expires: 03/09/2025 [facility] Comment on above: Expected: 03/09/2024 (Approximate), Expires: 03/09/2025 Start: 03-09-2024 End: 03-09-2024 [facility]: 16 weeks gestation o f ; Second trimester ; Poor weight gain (0-17); Nausea and vomiting, unspecified vomiting type Start: 02-29-2024 Influenza vaccination Influenza Vacc ine (#1) [facility] Start: 02-27-2024 End: 02-27-2024 Professional / ancillary services management 02/27/2024 8:00 AM EDT Ancillary Procedure [facility] [address] [place] [address] [facility] Start: 02-24-2024 End: 02-24-2024 Patient encounter procedure 02/24/2024 8:45 AM EDT Routine [facility] [address] [place] [address] Judith Esquivel MD [address] [place] [address] 14 weeks gestation of ; Second trimester [facility] Comment on above: 14 weeks gestation o f ; Second trimester Bacteria identified in Urine by Culture Urine culture Microbiology Routine 20 weeks gestation of Second trimester Leukocytes in urine Ordered: 04/08/2024 [facility] Work Phone: Comment on above: Ordered: 04/08/2024 Bacteria identified in Urine by Culture Urine culture Microbiology Routine 24 weeks gestation of Second trimester Leukocytes in urine Ordered: 05/04/2024 [facility] Comment on above: Ordered: 05/04/2024 Hemoglobin [Mass/volume] in Blood Hemoglobin and hematocrit, blood Lab Routine Screening for diabetes mellitus (DM) Ordered: 05/04/2024 [facility] Work Phone: Comment on above: Ordered: 05/04/2024 Hemoglobin A1c/Hemoglobin.total in Blood Hemoglobin A1c Lab Routine 34 weeks gestation of Ordered: 07/12/2024 [facility] Work Phone: Comment on above: Ordered: 07/12/2024 Hepatitis C virus Ab [Presence] in Serum or Plasma by Immunoassay Hepatitis C antibody Lab Routine 34 weeks gestation of Ordered: 07/12/2024 [facility] Comment on above: Ordered: 07/12/2024 Measurement of gluco se 1 hour after glucose challenge for glucose tolerance test Glucose tolerance, 1 hour Lab Routine Screening for diabetes mellitus (DM) Ordered: 05/04/2024 [facility] Comment on above: Ordered: 05/04/2024 QHERIT(TM) EXPANDED CARRIER SCREEN QHERIT(TM) EXPANDED CARRIER SCREEN Lab Routine Screening for genetic disease carrier status Ordered: 02/02/2024 [facility] Comment on above: Ordered: 02/02/2024 QNATAL(R) ADVANCED QNATAL(R) ADV ANCED Lab Routine 18 weeks gestation of Screening for chromosomal anomalies by amniocentesis Ordered: 02/02/2024 [facility] Work Phone: Comment on above: Ordered: 02/02/2024 Payers Date Payer Category Payer Private Health Insurance [employer] [id number] 2023 Private Health Insurance [id number] 2020 [facility] BCBS [id number] 1.315 2020 Unknown BCBS BCBS [id number] 2020-Present [phone] [address] [place] [address] [id number] 2020 Unknown [id number] 1999 Unknown [id number] 2.16.840.1.750271.3.5 79.2.1259 1999 Unknown [id number] 2.16.840.1.452755.3.5 79.2.1259 1999 Unknown [id number] 2.16.840.1.214104.3.5 79.2.1259 1999 Unknown [id number] 2.16.840.1.204124.3.5 79.2.1259 1999 Unknown [id number] 2.16.840.1.961765.3.5 79.2.1259 1999 Unknown [id number] 2.16.840.1.819988.3.5 79.2.1259 1999 Unknown [id number] 2.16.840.1.486990.3.5 79.2.1259 1999 Unknown [id number] 2.16.840.1.372881.3.5 79.2.1259 1999 Unknown [id number] 2.16.840.1.748925.3.5 79.2.1259 1999 Unknown [id number] 2.16.840.1.408767.3.5 79.2.1259 1999 Unknown [id number] 2.16.840.1.720090.3.5 79.2.1259 1999 Unknown [id number] 2.16.840.1.884792.3.5 79.2.1259 1999 Unknown [id number] 2.16.840.1.761000.3.5 79.2.1259 1999 Unknown [id number] 2.16.840.1.784576.3.5 79.2.1259 1999 Unknown [id number] 2.16.840.1.564577.3.5 79.2.1259 1999 Unknown [id number] 2.16.840.1.452142.3.5 79.2.1259 1999 Unknown [id number] 2.16.840.1.398690.3.5 79.2.1259 1999 Unknown [id number] 2.16.840.1.839864.3.5 79.2.1259 1999 Unknown [id number] 2.16.840.1.612322.3.5 79.2.1259 1999 Unknown [id number] 2.16.840.1.232917.3.5 79.2.1259 Social History Date Type Detail Facility Start: 01-09-2024 Tobacco smoking stat [facility] Never smoked tobacco [facility] Start: 01-09-2024 [...] nursing note reviewed. Exam conducted with a hyperbaric technician present. Vitals: Estimated body mass index is [...] Wilber Stone DO documented in this encounter [facility] 08-03-2024 History of Presen t illness [...] Wilber Stone DO documented in this encounter [facility] 07-26-2024 History of Presen t illness [...] nursing note reviewed. Exam conducted with a hyperbaric technician present. Vitals: Estimated body mass index is [...] is 1cm dilated. Discussed car trip to [place] and labor and when not to travel. Patient declines to have Hepatitis C lab work drawn. Orders Placed This Encounter Procedures CULTURE, GROUP B STREP WITH SUSCEPTIBLITY POCT urinalysis dipstick manually resulted Follow Up: Patient is to return to office in 1 week for routine OB appointment Documented by Marcella Collier LPN on behalf of: Wilber Stone DO documented in this encounter [facility] 07-12-2024 History of Presen t illness [...] nursing note reviewed. Exam conducted with a hyperbaric technician present. Vitals: Estimated body mass index is [...] Wilber Stone DO documented in this encounter [facility] 05-31-2024 History of Presen t illness Narrative Reason for Appointment: Patient ID: Jamie Esquivel is a 23 y.o. female who presents for [facility] Patient presents today for to [...] nursing note reviewed. Exam conducted with a hyperbaric technician present. Vitals: Estimated body mass index is [...] Pt is deciding whether to come to [place] or [facility] for delivery- advised pt if she wants to deliver with Dr Stone transfer to our office at 32 weeks. Pt voiced understanding. Documented by Jana Hernandez LPN on behalf of: Wilber Stone DO documented in this encounter [facility] 05-19-2024 History of Presen t illness [...] 38% Pt has had peds appt With [facility] The patient reports that her feet [...] program She has considered finding a pp sales service executive, The patient inquires about collecting colostrum early and is advised to start at 35-36 weeks of . She is instructed not to engage in nipple stimulation as it can cause contractions and to look for passive collection cups for colostrum collection. The patient reports receiving her Tdap, COVID, and flu shots and plans to get her RSV shot at [facility]. Objective Physical Exam weight: 209 lb Expected [...] C to enhance absorption. 6. plan and sales service executive: - Patient interested in natural and considering a pp sales service executive - Plan: a) Discuss the benefits and [...] - Dr Stone documented in this encounter [facility] 05-15-2024 History of Presen t illness Narrative Kerry documented in this encounter [facility] 05-04-2024 History of Presen t illness [...] results found for: GLUF , GLUT1 , [id number] , [id number] Imaging The most recent ultrasound was performed [...] Tdap a couple of months ago at [facility]. b) RSV: Recommend receiving RSV vaccine at health department or Dr. Montes's practice before 28-30 weeks gestation. c) COVID and flu: Vaccines available as desired. d) Advise patient's partner to check with Dr. Montes about receiving RSV vaccine. 5. plan and provider concerns: - Plan: a) Encourage patient to schedule an appointment with Dr. Stone at [facility] to discuss plan and address concerns [...] a routine visit. documented in this encounter [facility] 04-08-2024 History of Presen t illness [...] maternity 21 results documented in this encounter [facility] 03-09-2024 History of Presen t illness [...] on increasing protein intake as per the internet marketing consultant's recommendations. - Plan: a) Encourage the patient [...] AUS 4 weeks documented in this encounter [facility] 02-24-2024 History of Presen t illness [...] grown tired of them. 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 Note was given [...] - Plan: a) Refer patient to a pulmonologist intensivist for nutritional counseling and meal planning. b) Encourage patient to consume breakfast and consider meal replacement options such as protein drinks. c) Monitor ketone levels in urine during follow-up visits. Zofran pump offered and pt does not wish 5. Work-related eating challenges: - Plan: a) Collaborate with the pulmonologist intensivist to develop strategies for eating during work [...] to assess growth documented in this encounter [facility] 02-02-2024 History of Presen t illness [...] Health Diagnoses Poor weight gain (0-17) Procedures [place] OFFICE/OUTPATIENT NEW HIGH MDM 60 MINUTES Judith Esquivel MD [address] [place] [address] Shauna Phelps, MS, RDN, LD, CHES [address], [place] Referral ID Status Reason Start Date Expiration Date Visits Requested Visits Authorized [id number] Authorized Consult and Treat 02/24/2024 08/22/2024 1 1 [facility] Healthcare Summary Purpose Family History No Family History Records Found Advance Directives No Advanced Directives Records Found Additional Source Comments Care Teams (unrecognized sec tion and content) Dsp Engineer Relationship Specialty Start Date End Date Unallocated, Ricky Hernandez MD [address] [place] [address] [place] [address] PCP - General Family Medicine 01/09/24 Dsp Engineer Relationship Specialty Start Date End Date Unallocated, Ricky Hernandez MD [address] [place] [address] [place] [address] PCP - General Family Medicine 01/09/24 Dsp Engineer Relationship Specialty Start Date End Date Unallocated, Ricky Hernandez MD [facility] [facility] [place] [address] PCP - General Family Medicine 01/09/24 Dsp Engineer Relationship Specialty Start Date End Date Unallocated, Ricky Hernandez MD [address] [place] [address] [facility] [facility] [place] [address] PCP - General Family Medicine 01/09/24 Dsp Engineer Relationship Specialty Start Date End Date Unallocated, Ricky Hernandez MD [facility] [place] [address] PCP - General Family Medicine 01/09/24 Dsp Engineer Relationship Specialty Start Date End Date Unallocated, [place] [address] PCP - General Family Medicine 01/09/24 Dsp Engineer Relationship Specialty Start Date End Date Unallocated, [place] [address] PCP - General Family Medicine 01/09/24 Dsp Engineer Relationship Specialty Start Date End Date Unallocated, [place] [address] PCP - General Family Medicine 01/09/24 Dsp Engineer Relationship Specialty Start Date End Date Unallocated, [place] [address] PCP - General Family Medicine 01/09/24 Dsp Engineer Relationship Specialty Start Date End Date Unallocated, [place] [address] PCP - General Family Medicine 01/09/24 Dsp Engineer Relationship Specialty Start Date End Date Unallocated, [place] [address] PCP - General Family Medicine 01/09/24 Dsp Engineer Relationship Specialty Start Date End Date Unallocated, [place] [address] PCP - General Family Medicine 01/09/24 Dsp Engineer Relationship Specialty Start Date End Date Unallocated, [place] [address] PCP - General Family Medicine 01/09/24 Dsp Engineer Relationship Specialty Start Date End Date Unallocated, [place] [address] PCP - General Family Medicine 01/09/24 Dsp Engineer Relationship Specialty Start Date End Date Unallocated, [facility] Provider, [address] [place] [address] PCP - General Family Medicine 01/09/24 Reason for Visit (unrecogniz ed section and content) Reason Comments Establish Care Specialty Diagnoses / Procedures Referred By Contac t Referred To Contact Obstetrics and Gynecology Diagnoses Encounter for supervision of normal first , first trimester Procedures please check global maternity benefits EDC 08/22/24 Judith Esquivel MD [address] [place] [address] Judith Esquivel MD [address] [facility] [address] [place] [address] Referral ID Status Reason Start Date Expiration Date V isits Requested Visits Authorized [id number] Closed Other 01/12/2024 07/10/2024 1 1 Reason Comments Routine Visit INFORMATION SOURCE (unrecogn ized section and content) DATE CREATED AUTHOR 08/17/2024 [facility] EPIC FOR RECORDS PERTAINING TO [...] BE BASED ON THE PRIMARY CLINICAL RECORDS. [employer] provides no warranty or guarantee of the accuracy or completeness of information in this document.
[2024-08-17 22:44] LABS: Amphetamine Screen Urine NEGATIVE (NEGATIVE); Barbiturates Screen Urine NEGATIVE (NEGATIVE); Benzodiazepines Screen Urine NEGATIVE (NEGATIVE); Buprenorphine Screen Urine NEGATIVE (NEGATIVE); Cannabinoid Screen Urine NEGATIVE (NEGATIVE); Cocaine Screen Urine NEGATIVE (NEGATIVE); Methadone Screen Urine NEGATIVE (NEGATIVE); Methamphetamines Screen Urine NEGATIVE (NEGATIVE); Opiate Screen Urine NEGATIVE (NEGATIVE); Oxycodone Screen Urine NEGATIVE (NEGATIVE); Phencyclidine Screen Urine NEGATIVE (NEGATIVE); Tricyclic Antidepressant Urine NEGATIVE (NEGATIVE)
[2024-08-17] MEDS: AMPICILLIN SODIUM 2,000 MG in 0.9 % SODIUM CHLORIDE 100 ML 200 MG IV (23:06)
[2024-08-17] MEDS: 0.9 % SODIUM CHLORIDE 1,000 ML 125 ML IV (23:07)
[2024-08-17 23:28] LABS: Hematocrit 32.7 % (36.0-48.0); Mean Corpuscular HGB Conc 33.6 g/dL (29.9-35.2); Mean Corpuscular Hemoglobin 28.9 pg (26.7-34.0); Mean Corpuscular Volume 86.1 fL (81.0-99.0); Mean Platelet Volume 10.7 fL (9.5-13.5); Platelet Count 330 10^3/uL (150-450); Red Cell Distribution Width 13.7 % (11.0-15.0); White Blood Count 12.5 10^3/uL (4.0-11.0)
[2024-08-17 23:36] VITALS: TEMP 36.8
[2024-08-18] VITALS (37 sets, daily range): BP systolic 91–139; BP diastolic 48–78; PULSE 74–164; TEMP 35.9–36.8
[2024-08-18] MEDS: AMPICILLIN SODIUM 1,000 MG in 0.9 % SODIUM CHLORIDE 50 ML 100 MG IV ×4 (02:47→15:49)
[2024-08-18] MEDS: NALBUPHINE HCL 10 MG/ML AMPULE IV ×2 (10:45→14:39)
[2024-08-18] MEDS: 0.9 % SODIUM CHLORIDE 1,000 ML 125 ML IV ×2 (15:49→17:54)
[2024-08-18] MEDS: ROPIVACAINE HCL/PF 400 MG/200 ML PREMIX 6 MG EPIDURAL (17:46)
[2024-08-18] MEDS: OXYTOCIN/0.9 % SODIUM CHLORIDE 20 UNITS/1,000 ML PLAST..BAG 125 UNIT IV (20:43)
--- NOTE | 2024-08-18 21:01 | PM.OBPRCVD ---
Procedure Intrapartal events: None Induction method: none Delivery augmentation: rupture of membranes Delivery monitor: external FHT and external uterine Route of delivery: Episiotomy Description: none L&D Laceration Description: periurethral - 1st degree Delivery repair: Vicryl Estimated blood loss (mL): 250 Anesthesia type: None Disposition: floor Delivery date: 08/18/24 Gender: female presentation: vertex Placental delivery description: Spontaneous cord description: 3 Vessels and Nuchal Cord
[2024-08-19] MEDS: BENZOCAINE/MENTHOL 85 GRAM SPRAY BOTTLE 1 APPLIC TOPICAL (00:01)
[2024-08-19] MEDS: GLYCERIN/WITCH HAZEL PADS 1 PAD TOPICAL (00:01)
[2024-08-19] MEDS: IBUPROFEN 600 MG TABLET PO ×4 (00:02→18:11)
[2024-08-19] MEDS: ACETAMINOPHEN 325 MG TABLET 650 MG PO ×3 (00:02→19:27)
[2024-08-19 04:00] VITALS: TEMP 36.8
[2024-08-19 04:01] VITALS: BP 102/52; PULSE 98
[2024-08-19 06:27] LABS: Basophils Absolute Auto 0.1 10^3/uL (0.0-0.1); Basophils Percent Auto 0.3 % (0.2-2.0); Eosinophils Percent Auto 0.1 % (0.9-7.0); Hematocrit 27.4 % (36.0-48.0); Hemoglobin 9.3 g/dL (12.0-16.0); Immature Granulocytes Abs Auto 0.19 10^3/uL (0.00-0.03); Immature Granulocytes Pct Auto 1.1 % (0.0-0.5); Lymphocytes Absolute Auto 2.7 10^3/uL (1.2-3.8); Lymphocytes Percent Auto 15.1 % (20.5-60.0); Mean Corpuscular HGB Conc 33.9 g/dL (29.9-35.2); Mean Corpuscular Hemoglobin 29.3 pg (26.7-34.0); Mean Corpuscular Volume 86.4 fL (81.0-99.0); Monocytes Absolute Auto 1.4 10^3/uL (0.3-0.8); Monocytes Percent Auto 7.9 % (1.7-12.0); Neutrophils Absolute Auto 13.5 10^3/uL (1.4-6.5); Neutrophils Percent Auto 75.5 % (43.0-75.0); Platelet Count 303 10^3/uL (150-450); Red Blood Count 3.17 10^6/uL (4.20-5.40); Red Cell Distribution Width 13.9 % (11.0-15.0); White Blood Count 17.9 10^3/uL (4.0-11.0)
[2024-08-19 08:28] VITALS: BP 101/56; PULSE 97; TEMP 37
[2024-08-19 08:29] VITALS: TEMP 36.1
--- NOTE | 2024-08-19 10:07 | PM.OBPN ---
OB - PN: Subj Subjective Patient comments: no complaints and pain well controlled Exam Constitutional Vital Signs, click to edit/add: Last Vital Signs Temp 97.0 F L 08/19/24 08:29 Pulse 97 H 08/19/24 08:28 Resp 16 08/19/24 08:28 BP 101/56 08/19/24 08:28 O2 Del Method Room Air 08/19/24 08:28 Common normals: no apparent distress Other: perineum - minimal bleeding Neuro Common normals: oriented x3 Sensorium/orientation: awake Psych Common normals: mental status grossly normal Results Labs Labs: Short CBC 08/19/24 Range/Units 06:10 WBC 17.9 H (4.0-11.0) 10^3/uL Hgb 9.3 L (12.0-16.0) g/dL Hct 27.4 L (36.0-48.0) % Plt Count 303 (150-450) 10^3/uL OB - PN: A/P Assessment and Plan (1) Term : Plan - Vaginal Delivery day: 1 Plan: routine care Time Spent with Patient Time: Total time spent is greater than 50% in coordination of care (as documented) at patient's floor/unit and/or counseling patient: Total time spent with greater than 50% in coordination of care (as documented) at patient's floor/unit and/or counseling patient: less than 15 minutes
[2024-08-19 15:45] VITALS: TEMP 37
[2024-08-19 15:46] VITALS: BP 109/67; PULSE 92
[2024-08-19] MEDS: DOCUSATE SODIUM 100 MG CAPSULE PO (21:33)
[2024-08-20] MEDS: ACETAMINOPHEN 325 MG TABLET 650 MG PO ×2 (01:44→09:49)
[2024-08-20] MEDS: IBUPROFEN 600 MG TABLET PO ×2 (01:44→12:20)
[2024-08-20 01:45] VITALS: TEMP 36.9
[2024-08-20 01:46] VITALS: BP 97/56; PULSE 93
--- NOTE | 2024-08-20 04:38 | PM.OBPN ---
OB - PN: Subj Subjective Patient comments: no complaints and pain well controlled [place] status: doing well Exam Constitutional Vital Signs, click to edit/add: Last Vital Signs Temp 98.4 F 08/20/24 01:45 Pulse 93 H 08/20/24 01:46 Resp 16 08/20/24 01:45 BP 97/56 08/20/24 01:46 O2 Del Method Room Air 08/20/24 01:45 Documenting provider has reviewed patient's vital signs: yes Common normals: no apparent distress Respiratory Common normals: normal respiratory effort and clear to auscultation bilaterally Cardio Common normals: regular rate and regular rhythm GI Common normals: Normal to inspection, nondistended, normoactive bowel sounds present Extremity Common normals: no clubbing, cyanosis or edema and no calf tenderness Results Labs Labs: Short CBC 08/19/24 Range/Units 06:10 WBC 17.9 H (4.0-11.0) 10^3/uL Hgb 9.3 L (12.0-16.0) g/dL Hct 27.4 L (36.0-48.0) % Plt Count 303 (150-450) 10^3/uL OB - PN: A/P Assessment and Plan (1) Term : Plan - Vaginal Delivery day: 2 Plan: routine care, discharge home and follow up 6 weeks Time Spent with Patient Time: Total time spent is greater than 50% in coordination of care (as documented) at patient's floor/unit and/or counseling patient: Total time spent with greater than 50% in coordination of care (as documented) at patient's floor/unit and/or counseling patient: less than 15 minutes
[2024-08-20 09:31] VITALS: BP 100/58; PULSE 106; TEMP 36.8
[2024-08-20] MEDS: DOCUSATE SODIUM 100 MG CAPSULE PO (09:48)
== END 2024-08-20 14:45 | disposition home or self-care (01) | DRG 807 ==
PROVIDERS: Admitting Provider Obstetrics & Gynecology; Visit Provider Obstetrics & Gynecology
DX: O99.824 Streptococcus B carrier state complicating childbirth (principal); Z37.0 Single live birth; O69.81X0 Labor and delivery complicated by cord around neck, without compression, not applicable or unspecified; O70.0 First degree perineal laceration during delivery; Z3A.39 39 weeks gestation of pregnancy
CPT/HCPCS: 36415; 59025; 59050; 59410; 80307; 81001; 85025; 85027; 86850; 86900; 86901; 87086; J0290; J2300; J2795; J3010

== ENCOUNTER 2024-08-24 08:23 | Outpatient (OUT) | payer OTHER, BC, SELFPAY ==
--- OUTSIDE RECORDS SUMMARY | 2024-08-24 08:37 | XMS_ITS | CCD ---
Author Organization [facility] Inform ion Partnership [facility] Care Team Providers Care Compounding Technician Name Role Phone Unallocated , Noms Provider Primary Care Provi ga BERTHA, [...] [38 weeks gestation of ] 08-11-2024 Episodic Residual codes; unclassified (2 sources) Gestation period, 39 weeks; Translations: [39 weeks gestation of ] 08-16-2024 Episodic Past or Other Problems Problem Classification [...] Test Name Value Interpretation Reference Range Facility ALL CBC WITH AUTO DIFFon BASOPHILS ABSOLUTE AUTO 0.1 [facility] Basophils/100 WBC (Bld) 0.3 % 0.2 - 2.0 % [facility] Eosinophils/100 WBC (Bld) 0.1 % Low 0.9 - 7.0 % [facility] Erythrocyte distribution wid th (RBC) [Ratio] 13.9 % 11.0 - 15.0 % [facility] Hematocrit (Bld) [Volume fraction] 27.4 % Low 36.0 - 48.0 % [facility] Hemoglobin (Bld) [Mass/Vol] 9.3 g/dL Low 12.0 - 16.0 g/dL [facility] IMMATURE GRANULOCYTES ABS AUTO 0.19 High [facility] Immature granulocytes/100 WB C (Bld) 1.1 % High 0.0 - 0.5 % [facility] Interpretation and review of laboratory results Abnormal [facility] LYMPHOCYTES ABSOLUTE AUTO 2.7 [facility] Lymphocytes/100 WBC (Bld) 15.1 % Low 20 .5 - 60.0 % [facility] MCH (RBC) [Entitic mass] 29.3 pg 26. 7 - 34.0 pg [facility] MCHC (RBC) [Mass/Vol] 33.9 g/dL 29.9 - 35.2 g/dL [facility] MCV (RBC) [Entitic vol] 86.4 fL 81.0 - 99.0 fL [facility] MONOCYTES ABSOLUTE AUTO 1.4 High N [facility] Monocytes/100 WBC (Bld) 7.9 % 1.7 - 12.0 % [facility] NEUTROPHILS ABSOLUTE AUTO 13.5 High [facility] Neutrophils/100 WBC (Bld) 75.5 % High 43 .0 - 75.0 % [facility] Platelet mean volume (Bld) [Entitic vol] 10 fL 9.5 - 13.5 fL [facility] TBH EO # 0 [facility] TB PLT 303 [facility] RBC 3.17 Low [facility] TB WBC 17.9 High [facility] TB UA (CLEAN/CATCH) SALES CONTRACTOR/WESLEY RO IF IND.on 08-17-2024 BILIRUBIN URINE Negative NEGATIVE [facility] BLOOD URINE SMALL Abnormal NEGATIVE [facility] Clarity (U) CLEAR CLEAR [facility] Color (U) LT. YELLOW YELLOW [facility] GLUCOSE URINE UA Negative NEGATIVE mg/dL [facility] Interpretation and review of laboratory results Abnormal [facility] Ketones Ql (U) Negative NEGATIVE mg/dL [facility] Leukocyte esterase Test stri p Ql (U) LARGE Abnormal NEGATIVE [facility] NITRITE URINE Negative NEGATIVE [facility] pH (U) 6.5 [pH] 5.0 - 9.0 [facility] PROTEIN URINE Negative NEG/TRACE mg/dL [facility] SPECIFIC GRAVITY URINE 1.010 1.005 - 1.025 [facility] URINE MICROSCOPIC INDICATED YES [facility] UROBILINOGEN URINE 0.2 EU/dL 0.2 - 1.0 EU/dL [facility] US OB FOLLOW UP TRANSABDOMIN AL APPROACHon 08-16-2024 US OB FOLLOW UP TRANSABDOMIN AL APPROACH TITLE OF EXAM: OB Ultrasound: REASON FOR EXAM: Inconsistent size. COMPARISON: 06/10/2024 TECHNIQUE: Grayscale and M-mode Doppler imaging is performed. FINDINGS: heart rate: 136 bpm MARIA: 9.4 cm (7.2-22.3) BPD: 8.7 cm HC: 32.6 cm AC: 36.6 cm FL: 7.4 cm GA for sonogram: 37.3 wk (35.0-39.6) ARGENIS: 08/22/2024 Weight Estimate: Weight: 3601 gm / 7 lbs, 15 oz (3432-7104 gm) [place] Normal: 3488 gm (7555-6166 gm) [place] Wt%: 61% for 39.3 wks Limited for: Growth Presentation: Cephalic Lie: Longitudinal Amniotic Fluid: 9.4 cm Between 5th and 95 percentile. Largest Fluid Pocket: 3.1 cn Heart Rate: 136 bpm Somatic Motion: Yes IMPRESSION: Single live intrauterine gestation in cephalic position estimated at 37.3 weeks. This is 2 weeks behind the provided clinical dates. Dictated and transcribed 08/17/24/dpd This report has been electronically signed and approved by the interpreting radiologist. Normal Not Available Comment on above: Order Comment: US OB SCAN FOR GROWTH Estimated Date of Delivery: 08/22/24 Gestational Age as of 08/11/2024: 38w3d Urinalysis macro (dipstick) panel (U)on 08-16-2024 Bilirubin, UA Negative Negative - 4(70) +++ mg/dL [facility] Blood, UA Positive Negative - 50 Choco/mcL [facility] Comment on above: small Clarity, UA Clear [facility] Color, UA Yellow [facility] Glucose, UA Negative Negative - 1999(110) ++++ mg/dL [facility] Interpretation and review of laboratory results Abnormal [facility] Ketones, UA Negative Negative - 160(16) ++++ mg/dL [facility] Leukocytes, UA Positive Negative - 500+++ Abhishek/mcL [facility] Comment on above: small Nitrite, UA Negative Negative - Positive [facility] pH, UA 6.5 5 - 9 [facility] Protein, UA Negative Negative - 1999(20) ++++ mg/dL [facility] Spec Grav, UA 1.013 1 - 1.03 [facility] Urobilinogen, UA 0.2 0.2 - 12 mg/dL [facility] Urinalysis macro (dipstick) panel (U)on 08-03-2024 Bilirubin, UA Negative Negative - 4(70) +++ mg/dL [facility] Blood, UA Positive Negative - 50 Choco/mcL [facility] Comment on above: trace-intact Clarity, UA Clear [facility] Color, UA Yellow [facility] Glucose, UA Negative Negative - 1999(110) ++++ mg/dL [facility] Interpretation and review of laboratory results Abnormal [facility] Ketones, UA Positive Negative - 160(16) ++++ mg/dL [facility] Comment on above: trace Leukocytes, UA Positive Negative - 500+++ Abhishek/mcL [facility] Comment on above: large Nitrite, UA Negative Negative - Positive [facility] pH, UA 7 5 - 9 [facility] Protein, UA Positive Negative - 1999(20) ++++ mg/dL [facility] Comment on above: 30 Spec Grav, UA 1.02 1 - 1.03 [facility] Urobilinogen, UA 0.2 0.2 - 12 mg/dL [facility] ALL MISCELLANEOUS TESTon MISCELLANEOUS TEST COMMENT . [facility] Comment on above: Test Ordered: [id number] Strep Gp B Culture+Rflx Strep Gp B Culture+Rflx Positive [A ] CB Reference Range: Negative Centers for Disease Control and Prevention (CDC) and [employer] of Obstetricians and Gynecologists (ACOG) guidelines [...] at high risk for anaphylaxis. Performed at: [facility] [address] [id number] New Vehicle Sales Consultant: Quoc Domínguez PhD, Phone: [phone] [id number] Group B Streptococcus Colonization Detection Culture With Re [facility] Urinalysis macro (dipstick) panel (U)on 07-26-2024 Bilirubin, UA Negative Negative - 4(70) +++ mg/dL [facility] Blood, UA Positive Negative - 50 Choco/mcL [facility] Clarity, UA Clear [facility] Color, UA Yellow [facility] Glucose, UA Negative Negative - 1999(110) ++++ mg/dL [facility] Interpretation and review of laboratory results Abnormal [facility] Ketones, UA Negative Negative - 160(16) ++++ mg/dL [facility] Leukocytes, UA Positive Negative - 500+++ Abhishek/mcL [facility] Nitrite, UA Negative Negative - Positive [facility] pH, UA 7 5 - 9 [facility] Protein, UA Trace Negative - 2000(20) ++++ mg/dL [facility] Spec Grav, UA 1.025 1 - 1.03 [facility] Urobilinogen, UA 0.2 0.2 - 12 mg/dL [facility] Urinalysis macro (dipstick) panel (U)on 07-12-2024 Bilirubin, UA Negative Negative - 4(70) +++ mg/dL [facility] Blood, UA Negative Negative - 50 Choco/mcL [facility] Clarity, UA Clear [facility] Color, UA Yellow [facility] Glucose, UA Negative Negative - 1999(110) ++++ mg/dL [facility] Interpretation and review of laboratory results Abnormal [facility] Ketones, UA Negative Negative - 160(16) ++++ mg/dL [facility] Leukocytes, UA Positive Negative - 500+++ Abhishek/mcL [facility] Nitrite, UA Negative Negative - Positive [facility] pH, UA 7 5 - 9 [facility] Protein, UA Positive Negative - 1999(20) ++++ mg/dL [facility] Spec Grav, UA 1.025 1 - 1.03 [facility] Urobilinogen, UA 0.2 0.2 - 12 mg/dL [facility] Urinalysis macro (dipstick) panel (U)Ordered By: Cathy Ferreira on 05-19-2024 Bilirubin, UA Negative Negative - 4(70) +++ mg/dL [facility] Blood, UA Negative Negative - 50 Choco/mcL [facility] Clarity, UA Clear [facility] Color, UA Yellow [facility] Glucose, UA Negative Negative - 1999(110) ++++ mg/dL [facility] Interpretation and review of laboratory results Abnormal [facility] Ketones, UA Negative Negative - 160(16) ++++ mg/dL [facility] Leukocytes, UA Positive Negative - 500+++ Abhishek/mcL [facility] Nitrite, UA Negative Negative - Positive [facility] pH, UA 7.5 5 - 9 [facility] Protein, UA Negative Negative - 1999(20) ++++ mg/dL [facility] Spec Grav, UA 1.01 1 - 1.03 [facility] Urobilinogen, UA 1.0 0.2 - 12 mg/dL [facility] Urinalysis macro (dipstick) panel (U)on 05-04-2024 Bilirubin, UA Negative Negative - 4(70) +++ mg/dL [facility] Blood, UA Negative Negative - 50 Choco/mcL [facility] Clarity, UA Clear [facility] Color, UA Yellow [facility] Glucose, UA Negative Negative - 1999(110) ++++ mg/dL [facility] Interpretation and review of laboratory results Normal [facility] Ketones, UA Negative Negative - 160(16) ++++ mg/dL [facility] Leukocytes, UA Positive Negative - 500+++ Abhishek/mcL [facility] Nitrite, UA Negative Negative - Positive [facility] pH, UA 8 5 - 9 [facility] Protein, UA Negative Negative - 1999(20) ++++ mg/dL [facility] Spec Grav, UA 1.005 1 - 1.03 [facility] Urobilinogen, UA 1.0 0.2 - 12 mg/dL [facility] Urinalysis macro (dipstick) panel (U)on 04-08-2024 Bilirubin, UA Negative Negative - 4(70) +++ mg/dL [facility] Blood, UA Negative Negative - 50 Choco/mcL [facility] Clarity, UA Clear [facility] Color, UA Yellow [facility] Glucose, UA Negative Negative - 1999(110) ++++ mg/dL [facility] Interpretation and review of laboratory results Abnormal [facility] Ketones, UA Negative Negative - 160(16) ++++ mg/dL [facility] Leukocytes, UA Positive Negative - 500+++ Abhishek/mcL [facility] Nitrite, UA Negative Negative - Positive [facility] pH, UA 8.5 5 - 9 [facility] Protein, UA Negative Negative - 1999(20) ++++ mg/dL [facility] Spec Grav, UA 1.015 1 - 1.03 [facility] Urobilinogen, UA 1.0 0.2 - 12 mg/dL [facility] Urinalysis macro (dipstick) panel (U)Ordered By: Cathy Ferreira on 03-09-2024 Bilirubin, UA Negative Negative - 4(70) +++ mg/dL [facility] Blood, UA Negative Negative - 50 Choco/mcL [facility] Clarity, UA Clear [facility] Color, UA Yellow [facility] Glucose, UA Negative Negative - 1999(110) ++++ mg/dL [facility] Interpretation and review of laboratory results Abnormal [facility] Ketones, UA Negative Negative - 160(16) ++++ mg/dL [facility] Leukocytes, UA Positive Negative - 500+++ Abhishek/mcL [facility] Nitrite, UA Negative Negative - Positive [facility] pH, UA 8.5 5 - 9 [facility] Protein, UA Negative Negative - 1999(20) ++++ mg/dL [facility] Spec Grav, UA 1.005 1 - 1.03 [facility] Urobilinogen, UA 1.0 0.2 - 12 mg/dL [facility] Urinalysis macro (dipstick) panel (U)on 02-24-2024 Bilirubin, UA Negative Negative - 4(70) +++ mg/dL [facility] Blood, UA Negative Negative - 50 Choco/mcL [facility] Clarity, UA Clear [facility] Color, UA Yellow [facility] Glucose, UA Negative Negative - 1999(110) ++++ mg/dL [facility] Interpretation and review of laboratory results Abnormal [facility] Ketones, UA Negative Negative - 160(16) ++++ mg/dL [facility] Leukocytes, UA Positive Negative - 500+++ Abhishek/mcL [facility] Nitrite, UA Negative Negative - Positive [facility] pH, UA 8.0 5 - 9 [facility] Protein, UA Negative Negative - 1999(20) ++++ mg/dL [facility] Spec Grav, UA 1.010 1 - 1.03 [facility] Urobilinogen, UA 1.0 0.2 - 12 mg/dL [facility] Laboratory - Cytologyon Soils Technician Cyto stain Nom (Cvx/Vag) [ID] [facility] Comment on above: CMB, CT(ASCP) CT Scr eening Location: [facility], [address] [place] [address], [place] [address] Cytology study comment Cyto stain Saravanan (Cvx/Vag) [Interp] [facility] Comment on above: This Pap test has be en evaluated with computer assisted technology. Microscopic observation Cyto stain Nom (Cvx) [facility] Comment on above: Cytology Results: Ne gative for intraepithelial lesion or malignancy. Specimen source Cyto stain N om (Cvx/Vag) [facility] Comment on above: None given Statement of adequacy Cyto stain (Cvx/Vag) [Interp] [facility] Comment on above: Satisfactory for vicente luation. Endocervical/transformation zone component absent. Laboratory - Microbiology an d Antimicrobial susceptibilityon 02-03-2024 HPV E6+E7 mRNA NITHYA+probe Ql (Cvx) Not detected Not Detected [facility] Comment on above: Methodology: Transcr iption-Mediated Amplification This assay detects E6/E7 viral messenger RNA (mRNA) from 14 high-risk HPV types (16,18,31,33,35,39,45,51,52,56,58,59,66,68). Cervical sources are required for HPV testing. If a vaginal source from a patient who has had a total hysterectomy with removal of cervix was submitted, please contact the testing laboratory for alternative testing options. For additional information, please refer to http://education.[email or web address]/faq/ONW583t0 (This link if provided for information/ educational purposes only.) No Panel Informationon 02-02 (ALWAYS MESSAGE) [facility] Comment on above: EXPLANATORY NOTE: The Pap [...] historic and current clinical information. Clinical information [facility] Comment on above: None given Date of previous biopsy [facility] Comment on above: None given Date of previous PAP smear [facility] Comment on above: None given Last menstrual period start date [facility] Comment on above: None given Performing Organization Information Site ID: [id number] Name: [employer] [facility] Address: [address] [place] [address], [address] [place] [id number] Director: Ket[facility]utherland [facility] Drugs of abuse panel Screen (U)on 02-02-2024 Amphetamines Ql (U) Negative [facility] Barbiturates Ql (U) Negative [facility] Benzodiazepines Ql (U) Negative [facility] Benzoylecgonine Ql (U) Negative [facility] Carboxy tetrahydrocannabinol (Mec) [Mass/Mass] Negative [facility] Interpretation and review of laboratory results Normal [facility] Methadone (U) [Mass/Vol] Negative [facility] Methylenedioxymethamphetamin e Screen Ql (U) Negative [facility] Morphine (U) [Mass/Vol] Negative [facility] Opiates Ql (U) Negative [facility] oxyCODONE Ql (U) Negative [facility] Phencyclidine Ql (U) Negative [facility] Reference Lab Test ID Negative [facility] Tricyclic antidepressants [Mass/Vol] Negative [facility] Laboratory - Specimen inform ationon 02-02-2024 Specimen type Nom (Spec) swab [facility] No Panel Informationon 02-01 GONORRHOEAE DNA(PCR) Negative [facility] Interpretation and review of laboratory results Normal [facility] Urinalysis macro (dipstick) panel (U)Ordered By: Cathy Ferreira on 02-02-2024 Bilirubin, UA Negative Negative - 4(70) +++ mg/dL [facility] Blood, UA Negative Negative - 50 Choco/mcL [facility] Clarity, UA Clear [facility] Color, UA Yellow [facility] Glucose, UA Negative Negative - 2000(110) ++++ mg/dL [facility] Interpretation and review of laboratory results Abnormal [facility] Ketones, UA Positive Negative - 160(16) ++++ mg/dL [facility] Leukocytes, UA Positive Negative - 500+++ Abhishek/mcL [facility] Nitrite, UA Negative Negative - Positive [facility] pH, UA 6.5 5 - 9 [facility] Protein, UA Negative Negative - 2000(20) ++++ mg/dL [facility] Spec Grav, UA 1.025 1 - 1.03 [facility] Urobilinogen, UA 1.0 0.2 - 12 mg/dL [facility] Vital Signs Date Time Vital Sign Value Performing Clinician Georgette rao 08-16-2024 16:07-0500 Body mass index (BMI) [Ratio] 36.81 kg/m2 [employer] Work Phone: [facility] 08-16-2024 16:07-0500 Body weight 106.59 kg [employer] Work Phone: [facility] 08-16-2024 16:07-0500 Diastolic blood pressure 70 mm[Hg] [employer] Work Phone: [facility] 08-16-2024 16:07-0500 Systolic blood pressure 122 mm[Hg] [employer] Work Phone: [facility] 08-11-2024 15:52-0500 Body mass index (BMI) [Ratio] 37.87 kg/m2 Nasseo DO Work Phone: [facility] 08-11-2024 15:52-0500 Body weight 109.68 kg Wilber Bertha DO Work Phone: [facility] 08-11-2024 15:52-0500 Diastolic blood pressure 76 mm[Hg] Wilber Bertha DO Work Phone: [facility] 08-11-2024 15:52-0500 Systolic blood pressure 114 mm[Hg] Wilber Bertha DO Work Phone: [facility] 08-03-2024 15:17-0500 Body mass index (BMI) [Ratio] 36.4 kg/m2 Wilber Bertha DO Work Phone: [facility] 08-03-2024 15:17-0500 Body weight 105.42 kg Wilber Bertha DO Work Phone: [facility] 08-03-2024 15:17-0500 Diastolic blood pressure 74 mm[Hg] Wilber Bertha DO Work Phone: [facility] 08-03-2024 15:17-0500 Systolic blood pressure 110 mm[Hg] Wilber Bertha DO Work Phone: [facility] 07-26-2024 13:20-0500 Body mass index (BMI) [Ratio] 35.71 kg/m2 Wilber Bertha DO Work Phone: [facility] 07-26-2024 13:20-0500 Body weight 103.42 kg Wilber Bertha DO Work Phone: [facility] 07-26-2024 13:20-0500 Diastolic blood pressure 78 mm[Hg] Wilber Bertha DO Work Phone: [facility] 07-26-2024 13:20-0500 Systolic blood pressure 124 mm[Hg] Wilber Bertha DO Work Phone: [facility] 07-12-2024 14:28-0500 Body mass index (BMI) [Ratio] 35.08 kg/m2 Wilber Bertha DO Work Phone: [facility] 07-12-2024 14:28-0500 Body weight 101.61 kg Wilber Bertha DO Work Phone: [facility] 07-12-2024 14:28-0500 Diastolic blood pressure 74 mm[Hg] Wilber Bertha DO Work Phone: [facility] 07-12-2024 14:28-0500 Systolic blood pressure 122 mm[Hg] Wilber Bertha DO Work Phone: [facility] 05-19-2024 14:36-0500 Body mass index (BMI) [Ratio] 32.73 kg/m2 Judith Esquivel MD Work Phone: [facility] 05-19-2024 14:36-0500 Body weight 94.8 kg Judith Esquivel MD Work Phone: [facility] 05-19-2024 14:36-0500 Diastolic blood pressure 60 mm[Hg] Judith Esquivel MD Work Phone: [facility] 05-19-2024 14:36-0500 Systolic blood pressure 98 mm[Hg] Judith Esquivel MD Work Phone: [facility] 05-04-2024 16:26-0500 Body mass index (BMI) [Ratio] 32.42 kg/m2 Judith Esquivel MD Work Phone: [facility] 05-04-2024 16:26-0500 Body weight 93.89 kg Judith Esquivel MD Work Phone: [facility] 05-04-2024 16:26-0500 Diastolic blood pressure 58 mm[Hg] Judith Esquivel MD Work Phone: [facility] 05-04-2024 16:26-0500 Systolic blood pressure 100 mm[Hg] Judith Esquivel MD Work Phone: [facility] 04-08-2024 08:23-0400 Body mass index (BMI) [Ratio] 30.85 kg/m2 Judith Esquivel MD Work Phone: [facility] 04-08-2024 08:23-0400 Body weight 89.36 kg Judith Esquivel MD Work Phone: [facility] 04-08-2024 08:23-0400 Diastolic blood pressure 62 mm[Hg] Judith Esquivel MD Work Phone: [facility] 04-08-2024 08:23-0400 Systolic blood pressure 100 mm[Hg] Judith Esquivel MD Work Phone: [facility] 03-09-2024 08:53-0400 Body mass index (BMI) [Ratio] 29.76 kg/m2 Judith Esquivel MD Work Phone: [facility] 03-09-2024 08:53-0400 Body weight 86.18 kg Judith Esquivel MD Work Phone: [facility] [facility] 08:53-0400 Diastolic blood pressure 60 mm[Hg] Judith Esquivel MD Work Phone: [facility] 03-09-2024 08:53-0400 Systolic blood pressure 100 mm[Hg] Judith Esquivel MD Work Phone: [facility] 02-24-2024 09:01-0400 Body mass index (BMI) [Ratio] 29.44 kg/m2 Judith Esquivel MD Work Phone: [facility] 02-24-2024 09:01-0400 Body weight 85.28 kg Judith Esquivel MD Work Phone: [facility] 02-24-2024 09:01-0400 Diastolic blood pressure 58 mm[Hg] Judith Esquivel MD Work Phone: [facility] 02-24-2024 09:01-0400 Systolic blood pressure 98 mm[Hg] Judith Esquivel MD Work Phone: [facility] 02-02-2024 13:15-0400 Body height 170.2 cm Judith Esquivel MD Work Phone: [facility] 02-02-2024 12:55-0400 Body mass index (BMI) [Ratio] 29.76 kg/m2 Judith Esquivel MD Work Phone: [facility] 02-02-2024 12:55-0400 Body weight 86.18 kg Judith Esquivel MD Work Phone: [facility] 02-02-2024 12:55-0400 Diastolic blood pressure 68 mm[Hg] Judith Esquivel MD Work Phone: [facility] 02-02-2024 12:55-0400 Systolic blood pressure 108 mm[Hg] Judith Esquivel MD Work Phone: [facility] Encounters Encounter Date Encounter Type Care Provider Facility Start: 08-19-2024 End: 08-19-2024 Clinisync Result Encounter Wilber Bertha DO Work Phone: [facility] Unsolicited Start: 08-19-2024 End: 08-19-2024 Clinisync Result Encounter Wilber Bertha DO Work Phone: [facility] Unsolicited Start: 08-17-2024 End: 08-17-2024 Clinisync Result Encounter Wilber Bertha DO Work Phone: [facility] Unsolicited Start: 08-17-2024 End: 08-17-2024 Clinisync Result Encounter Wilber Bertha DO Work Phone: [facility] Unsolicited Start: 08-16-2024 End: 08-16-2024 flow sheet Wilber Bertha DO Work Phone: [facility] Comment on above: Third trimester preg leonie; 39 weeks gestation of Start: 08-16-2024 End: 08-16-2024 ambulatory WILBER BERTHA Not Available Start: 08-11-2024 End: 08-11-2024 flow sheet Wilber Bertha DO Work Phone: [facility] Comment on above: 38 weeks gestation o f ; Third trimester ; size inconsistent with dates Start: 08-11-2024 End: 08-11-2024 ambulatory WILBER BERTHA Not Available Start: 08-11-2024 End: 08-11-2024 Bamboo flowsheet Wilber Bertha DO Work Phone: [facility] Start: 08-11-2024 End: 08-11-2024 Bamboo [...] flow sheet Wilber Bertha DO Work Phone: [facility] Comment on above: 34 weeks gestation o f ; Third trimester Start: 07-12-2024 End: 07-12-2024 ambulatory WILBER BERTHA Not Available Start: 06-28-2024 End: 06-28-2024 Bamboo flowsheet Mariya JIANG Work Phone: [facility] Start: 06-28-2024 End: 06-28-2024 Bamboo flowsheet Mariya JIANG Work Phone: [facility] Start: 06-10-2024 End: 06-10-2024 ambulatory JUDITH ESQUIVEL Not Available Start: 06-10-2024 End: 06-10-2024 ambulatory WILBER BERTHA Not Available Start: 05-31-2024 End: 05-31-2024 Bamboo flowsheet Wilber Bertha DO Work Phone: [facility] Start: 05-31-2024 End: 05-31-2024 Bamboo flowsheet Wilber Bertha DO Work Phone: [facility] Start: 05-31-2024 End: 05-31-2024 flow sheet Wilber Bertha DO Work Phone: [facility] Comment on above: Encounter to [facility]; 28 weeks gestation of ; Third trimester Start: 05-31-2024 End: 05-31-2024 ambulatory WILBER BERTHA Not Available Start: 05-19-2024 End: 05-19-2024 flow sheet Judith Esquivel MD Work Phone: [facility] Comment on above: 26 weeks gestation o f ; Second trimester ; Poor weight gain (0-17); Nausea and vomiting, unspecified vomiting type Start: 05-19-2024 End: 05-19-2024 ambulatory JUDITH ESQUIVEL Not Available Start: 05-15-2024 End: 05-15-2024 Orders Only Judith Esquivel MD Work Phone: [facility] Comment on above: Anemia, unspecified type (Primary Dx) Start: 05-04-2024 End: 05-04-2024 flow sheet Judith Esquivel MD Work Phone: [facility] Comment on above: 24 weeks gestation o f ; Second trimester ; Poor weight gain (0-17); Nausea and vomiting, unspecified vomiting type; Screening for diabetes mellitus (DM); Leukocytes in urine Start: 05-04-2024 End: 05-04-2024 ambulatory JUDITH ESQUIVEL Not Available Start: 05-04-2024 End: 05-04-2024 Bamboo flowsja Esquivel MD Work Phone: [facility] Start: 05-04-2024 End: 05-04-2024 Bamboo flowsja Esquivel MD Work Phone: [facility] Start: 04-08-2024 End: 04-08-2024 Bamboo flowsja Esquivel MD Work Phone: [facility] Start: 04-08-2024 End: 04-08-2024 Bamboo flowsja Esquivel MD Work Phone: [facility] Start: 04-08-2024 End: 04-08-2024 flow sheet Judith Esquivel MD Work Phone: [facility] Comment on above: 20 weeks gestation o f ; Second trimester ; Poor weight gain (0-17); Nausea and vomiting, unspecified vomiting type; Leukocytes in urine Start: 04-08-2024 End: 04-08-2024 ambulatory JUDITH ESQUIVEL Not Available Start: 04-05-2024 End: 04-05-2024 ambulatory WILBER STONE Not Available Start: 03-09-2024 End: 03-09-2024 Bamboo flowsja Esquivel MD Work Phone: [facility] Start: 03-09-2024 End: 03-09-2024 Apolloboo esdras Esquivel MD Work Phone: [facility] Start: 03-09-2024 End: 03-09-2024 flow sheet Judith Esquivel MD Work Phone: [facility] Comment on above: Pyuria (Primary Dx); [...] Bamboo flowsheet Judith Esquivel MD Work Phone: [facility] Start: 02-24-2024 End: 02-24-2024 Hakan flowsja Esquivel MD Work Phone: [facility] Start: 02-24-2024 End: 02-24-2024 flow sheet Judith Esquivel MD Work Phone: [facility] Comment on above: Poor weight gain (0- 17) (Primary Dx); 14 weeks gestation of ; Second trimester ; Ketonuria; Nausea and vomiting, unspecified vomiting type Start: 02-24-2024 End: 02-24-2024 ambulatory JUDITH ESQUIVEL Not Available Start: 02-02-2024 End: 02-02-2024 Initial care visit Judith Esquivel MD Work Phone: [facility] OB Comment on above: [place]: 11w1d Start: 02-02-2024 End: 02-02-2024 ambulatory JUDITH ESQUIVEL Not Available Start: 01-23-2024 End: 01-23-2024 ambulatory WILBER BERTHA Not Available Start: 01-09-2024 End: 01-09-2024 ambulatory WILBER BERTHA Not Available Procedures Date Procedure Procedure Detail Performing Clinician Start: 08-19-2024 ALL CBC WITH AUTO DIFF Wilber Bertha DO Work Phone: Start: 08-17-2024 [facility] UA (CLEAN/CATCH) SALES CONTRACTOR/MICRO IF IND. Wilber Bertha DO Work Phone: Start: 08-16-2024 Urnls dip stick/tabl et rgnt non-auto w/o micrscp Wilber Bertha DO Work Phone: Start: 08-03-2024 Urnls dip stick/tabl et rgnt non-auto w/o micrscp Wilber Bertha DO Work Phone: Start: 07-26-2024 Urnls dip stick/tabl et rgnt non-auto w/o micrscp Wilber Bertha DO Work Phone: Start: 07-26-2024 ALL MISCELLANEOUS TEST Wilbersanford Mcphersono DO Work Phone: Start: 07-12-2024 Urnls dip [...] Treatment Date Care Activity Detail Author Start: 08-23-2024 End: 08-23-2024 Patient encounter procedure 08/23/2024 3:00 PM EST Routine [facility] [address] [place] [phone] Wilber Stone, DO [address] [place] [address] [facility] Start: 08-16-2024 End: 08-16-2024 Patient encounter procedure 08/16/2024 3:30 PM EST Routine [facility] [address] [place] [phone] Wilber Stone, DO [address] [place] [address] [facility] Start: 08-16-2024 End: 08-16-2024 Professional / ancillary services management 08/16/2024 3:00 PM EST Ancillary Procedure [facility] [address] [place] [phone] [facility] Start: 08-11-2024 End: 08-11-2024 Patient encounter procedure 08/11/2024 3:20 PM EST Routine [facility] [address] [place] [phone] Wilber Stone, DO [address] [place] [address] Arrived [facility] Comment on above: [...] PM EST Routine [facility] [address] [place] [address] Wilber Stone DO [address] [facility] [place] [address] [facility] Start: 07-12-2024 End: 07-12-2024 Patient encounter procedure [facility] Comment on above: Arrived Start: 06-10-2024 End: 06-10-2024 Patient encounter procedure 06/10/2024 2:00 PM EST Routine [facility] [address] [place] [phone] Judith Esquivel MD [address] [place] [address] [facility] Start: 06-10-2024 End: 06-10-2024 Professional / ancillary services management 06/10/2024 1:15 PM EST Ancillary Procedure [facility] [address] [place] [address] [facility] Start: 05-31-2024 End: 05-31-2024 Patient encounter procedure [facility] Comment on above: Arrived Start: 05-19-2024 End: 05-19-2024 Patient encounter procedure 05/19/2024 2:15 PM EST Routine [facility] [address] [place] [address] Judith Esquivel MD [address] [place] [address] [facility] Start: 05-19-2024 End: 05-19-2024 Professional / ancillary services management 05/19/2024 1:15 PM EST Ancillary Procedure [facility] [address] [place] [address] [facility] Start: 05-04-2024 End: 05-04-2024 Patient encounter procedure [facility] Comment on above: 24 weeks gestation o f ; Second trimester ; Poor weight gain (0-17); Nausea and vomiting, unspecified vomiting type; Screening for diabetes mellitus (DM) Start: 04-08-2024 End: 04-08-2024 Patient encounter procedure 04/08/2024 8:15 AM EDT Routine [facility] [address] [place] [address] Judith Esquivel MD [address] [place] [address] 20 weeks gestation of ; Second trimester ; Poor weight gain (0-17) [facility] Comment on above: 20 weeks gestation o f ; Second trimester ; Poor weight gain (0-17) Start: 04-05-2024 End: 04-05-2024 Patient encounter procedure 04/05/2024 8:45 AM EDT Routine [facility] [address] [place] [address] Judith Esquivel MD [address] [place] [address] [facility] Start: 04-05-2024 End: 04-05-2024 Professional / ancillary services management 04/05/2024 8:00 AM EDT Ancillary Procedure [facility] [address] [facility] [place] [address] [facility] Start: 03-09-2024 End: 03-09-2025 Inheritest(R) Core Panel Inheritest(R) Core Panel Lab Routine care, subsequent in first trimester Screening for genetic disease carrier status Expected: 03/09/2024 (Approximate), Expires: 03/09/2025 [facility] Work Phone: Comment on above: Expected: 03/09/2024 (Approximate), Expires: 03/09/2025 Start: 03-09-2024 End: 03-09-2025 Maternity 21 Maternity 21 Lab Routine care, subsequent in first trimester Screening for genetic disease carrier status Expected: 03/09/2024 (Approximate), Expires: 03/09/2025 [facility] Comment on above: Expected: 03/09/2024 (Approximate), Expires: 03/09/2025 Start: 03-09-2024 End: 03-09-2024 Patient encounter procedure [facility] Comment on above: 16 weeks gestation o f ; Second trimester ; Poor weight gain (0-17); Nausea and vomiting, unspecified vomiting type Start: 02-29-2024 Influenza vaccination Influenza Vacc ine (#1) [facility] Start: 02-27-2024 End: 02-27-2024 Professional / ancillary services management 02/27/2024 8:00 AM EDT Ancillary Procedure [facility] [address] [facility] [place] [phone] [facility] Start: 02-24-2024 End: 02-24-2024 Patient encounter procedure 02/24/2024 8:45 AM EDT Routine [facility] [address] [facility] [place] [address] Judith Esquivel MD [address] [facility] [address] [place] [address] 14 weeks gestation of ; Second trimester [facility] Comment on above: 14 weeks gestation o f ; Second trimester Bacteria identified in Urine by Culture Urine culture Microbiology Routine 20 weeks gestation of Second trimester Leukocytes in urine Ordered: 04/08/2024 [facility] Work Phone: Comment on above: Ordered: 04/08/2024 Bacteria identified in Urine by Culture Urine culture Microbiology Routine 24 weeks gestation of Second trimester Leukocytes in urine Ordered: 05/04/2024 [facility] Comment on above: Ordered: 05/04/2024 Hemoglobin [Mass/volume] in Blood Hemoglobin and hematocrit, blood Lab Routine Screening for diabetes mellitus (DM) Ordered: 05/04/2024 [facility] Work Phone: Comment on above: Ordered: 05/04/2024 Hemoglobin A1c/Hemoglobin.total in Blood Hemoglobin A1c Lab Routine 34 weeks gestation of Ordered: 07/12/2024 [facility] Work Phone: Comment on above: Ordered: 07/12/2024 Hepatitis C virus Ab [Presence] in Serum or Plasma by Immunoassay Hepatitis C antibody Lab Routine 34 weeks gestation of Ordered: 07/12/2024 [facility] Comment on above: Ordered: 07/12/2024 Measurement of gluco se 1 hour after glucose challenge for glucose tolerance test Glucose tolerance, 1 hour Lab Routine Screening for diabetes mellitus (DM) Ordered: 05/04/2024 [facility] Comment on above: Ordered: 05/04/2024 QHERIT(TM) EXPANDED CARRIER SCREEN QHERIT(TM) EXPANDED CARRIER SCREEN Lab Routine Screening for genetic disease carrier status Ordered: 02/02/2024 [facility] Comment on above: Ordered: 02/02/2024 QNATAL(R) ADVANCED QNATAL(R) ADV ANCED Lab Routine 18 weeks gestation of Screening for chromosomal anomalies by amniocentesis Ordered: 02/02/2024 [facility] Work Phone: Comment on above: Ordered: 02/02/2024 Payers Date Payer Category Payer Private Health Insurance [employer] [id number] 2023 Private Health Insurance [id number] 2020 Blue [employer] Blue Shield BCBS [id number] 1.315 2020 Unknown BCBS BCBS [id number] [id number] 2020-Present [phone] [address] [place] [address] [id number] 2020 Unknown [id number] 1999 Unknown [id number] 2.16.840.1.408002.3.5 79.2.1259 1999 Unknown [id number] 2.16.840.1.007592.3.5 79.2.1259 1999 Unknown [id number] 2.16.840.1.147196.3.5 79.2.1259 1999 Unknown [id number] 2.16.840.1.590165.3.5 79.2.1259 1999 Unknown [id number] 2.16.840.1.434688.3.5 79.2.1259 1999 Unknown [id number] 2.16.840.1.456904.3.5 79.2.125 1999 Unknown [id number] 2.16.840.1.871287.3.5 79.2.125 1999 Unknown [id number] 2.16.840.1.983261.3.5 79.2.125 1999 Unknown [id number] 2.16.840.1.320546.3.5 79.2.1258 1999 Unknown [id number] 2.16.840.1.090418.3.5 79.2.1258 1999 Unknown [id number] 2.16.840.1.553983.3.5 79.2.125 1999 Unknown [id number] 2.16.840.1.260140.3.5 79.2.125 1999 Unknown [id number] 2.16.840.1.456892.3.5 79.2.1258 1999 Unknown [id number] 2.16.840.1.231802.3.5 79.2.125 1999 Unknown [id number] 2.16.840.1.784695.3.5 79.2.125 1999 Unknown [id number] 2.16.840.1.885735.3.5 79.2.125 1999 Unknown [id number] 2.16.840.1.956837.3.5 79.2.1258 1999 Unknown [id number] 2.16.840.1.991926.3.5 79.2.125 1999 Unknown [id number] 2.16.840.1.924337.3.5 79.2.1259 1999 Unknown [id number] 2.16.840.1.915946.3.5 79.2.1259 Social History Date Type Detail Facility Start: [facility]09[facility] Start: 01-09-2024 [...] Sex assigned at Not on file N [facility] Clinical Notes 02-02-2024 to 08-16-2024 Marcella Collier LPN - 08/16/2024 3:30 PM Reji Hernandez, [facility] - 08/11/2024 3:20 PM APOLINAR Blankenship - 08/03/2024 2:40 PM Real Collier, [facility] - 07/26/2024 1:00 PM EST Note Date & Type Note Facility 08-16-2024 History of Presen t illness Narrative Reason [...] nursing note reviewed. Exam conducted with a purchasing clerk present. Vitals: Estimated body mass index is 36.81 kg/m as calculated from the following: Height as of 02/02/24: 5' 7 . Weight as of this encounter: 235 lb. BP: 122/70 Patient's last menstrual period was 11/16/2023. ASSESSMENT & PLAN ICD-10-CM 1. Third trimester Z34.93 POCT urinalysis dipstick manually resulted 2. 39 weeks gestation of Z3A.39 Patient presents today for a routine obstetrics appointment. Patient is currently 39w2d with a Estimated Date of Delivery: 08/22/24. Patient does not desire to have IOL at this time. Patient will return to clinic in 1 week for routine OB appointment. Documented by Marcella Collier LPN on behalf of: Wilber Stone DO documented in this encounter [facility] 08-11-2024 History of Presen t illness Narrative [...] nursing note reviewed. Exam conducted with a purchasing clerk present. Vitals: Estimated body mass index is [...] Wilber Stone DO documented in this encounter [facility] 08-03-2024 History of Presen t illness Narrative [...] Wilber Stone DO documented in this encounter [facility] 07-26-2024 History of Presen t illness Narrative [...] nursing note reviewed. Exam conducted with a purchasing clerk present. Vitals: Estimated body mass index is [...] is 1cm dilated. Discussed car trip to [place] and labor and when not to travel. Patient declines to have Hepatitis C lab work drawn. Orders Placed This Encounter Procedures CULTURE, GROUP B STREP WITH SUSCEPTIBLITY POCT urinalysis dipstick manually resulted Follow Up: Patient is to return to office in 1 week for routine OB appointment Documented by Marcella Collier LPN on behalf of: Wilber Stone DO documented in this encounter [facility] 07-12-2024 History of Presen t illness Narrative [...] nursing note reviewed. Exam conducted with a purchasing clerk present. Vitals: Estimated body mass index is [...] Wilber Stone DO documented in this encounter [facility] 05-31-2024 History of Presen t illness Narrative Reason for Appointment: Patient ID: Brigette Esquivel is a 23 y.o. female who presents for [facility] Patient presents today for to meet [...] nursing note reviewed. Exam conducted with a purchasing clerk present. Vitals: Estimated body mass index is [...] Pt is deciding whether to come to [place] or [facility] for delivery- advised pt if she wants to deliver with Dr Stone transfer to our office at 32 weeks. Pt voiced understanding. Documented by Jana Hernandez LPN on behalf of: Wilber Stone DO documented in this encounter [facility] 05-19-2024 History of Presen t illness Narrative Subjective Brigette Esquivel is a 23 y.o. at 26w3d with a working estimated date of delivery of 08/22/2024, by Last Menstrual Period who presents for a routine visit. She denies vaginal bleeding, leakage of fluid, decreased movements, or contractions. Efw22% CL 38.1mm edc 08/22 Her is complicated by: Efw 38% Pt has had peds appt With [facility] The patient reports that her feet [...] program She has considered finding a pp brick machine operator, The patient inquires about collecting colostrum early and is advised to start at 35-36 weeks of . She is instructed not to engage in nipple stimulation as it can cause contractions and to look for passive collection cups for colostrum collection. The patient reports receiving her Tdap, COVID, and flu shots and plans to get her RSV shot at [facility]. Objective Physical Exam weight: 209 lb Expected [...] C to enhance absorption. 6. plan and brick machine operator: - Patient interested in natural and considering a pp brick machine operator - Plan: a) Discuss the benefits [...] patient to get the RSV shot at [facility] as planned. Pt and wish to deliver with Dr Stone 9. Follow-up: - Dr Stone documented in this encounter [facility] 05-15-2024 History of Presen t illness Narrative Anwmia documented in this encounter [facility] 05-04-2024 History of Presen t illness Narrative [...] results found for: GLUF , GLUT1 , [id number] , [id number] Imaging The most recent ultrasound was performed [...] Tdap a couple of months ago at [facility]. b) RSV: Recommend receiving RSV vaccine at health department or Dr. Montes's practice before 28-30 weeks gestation. c) COVID and flu: Vaccines available as desired. d) Advise patient's partner to check with Dr. Montes about receiving RSV vaccine. 5. plan and provider concerns: - Plan: a) Encourage patient to schedule an appointment with Dr. Stone at [facility] to discuss plan and address concerns regarding [...] a routine visit. documented in this encounter [facility] 04-08-2024 History of Presen t illness Narrative [...] maternity 21 results documented in this encounter [facility] 03-09-2024 History of Presen t illness Narrative Subjective Brigette Esquivel is a 23 y.o. at 16w2d [...] on increasing protein intake as per the upholstery mechanic's recommendations. - Plan: a) Encourage the patient [...] AUS 4 weeks documented in this encounter [facility] 02-24-2024 History of Presen t illness Narrative [...] grown tired of them. 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 Note was [...] - Plan: a) Refer patient to a clinical professor for nutritional counseling and meal planning. b) Encourage patient to consume breakfast and consider meal replacement options such as protein drinks. c) Monitor ketone levels in urine during follow-up visits. Zofran pump offered and pt does not wish 5. Work-related eating challenges: - Plan: a) Collaborate with the clinical professor to develop strategies for eating during work [...] to assess growth documented in this encounter [facility] 02-02-2024 History of Presen t illness Narrative Subjective Brigettesharon Esquivel is a 23 y.o. at 11w1d [...] with dates documented [facility] this [facility] Diagnosis Third trimester state, incidental 39 weeks gestation of documented in this encounter [facility] (narrative)* Consultation (Routine) - Authorized Specialty Diagnoses / Procedures Referred By Contac t Referred To Contact Nutrition / Behavioral Health Diagnoses Poor weight gain (0-17) Procedures RI OFFICE/OUTPATIENT NEW HIGH MDM 60 MINUTES Judith Esquivel MD [address] [place] [address] Shauna Phelps, MS, RDN, LD, CHES [address] [place], [place] Referral ID Status Reason Start Date Expiration Date Visits Requested Visits Authorized [id number] Authorized Consult and Treat 02/24/2024 08/22/2024 1 1 [facility] Summary Purpose Family History No Family History Records Found Advance Directives No Advanced Directives Records Found Additional Source Comments Care Teams (unrecognized sec tion and content) Compounding Technician Relationship Specialty Start Date End Date Unallocated, Ricky Hernandez MD [facility] [place] [address] PCP - General Family Medicine 01/09/24 Compounding Technician Relationship Specialty Start Date End Date Unallocated, Ricky Hernandez MD [facility] [place] [address] PCP - General Family Medicine 01/09/24 Compounding Technician Relationship Specialty Start Date End Date Unallocated, MD Sharon Angel [facility] [address] PCP - General Family Medicine 01/09/24 Compounding Technician Relationship Specialty Start Date End Date Unallocated, Ricky Hernandez MD [facility] [address] [place] [place], [place] [address] PCP - General Family Medicine 01/09/24 Compounding Technician Relationship Specialty Start Date End Date Unallocated, [place] [address] PCP - General Family Medicine 01/09/24 Compounding Technician Relationship Specialty Start Date End Date Unallocated, [place] [address] PCP - General Family Medicine 01/09/24 Compounding Technician Relationship Specialty Start Date End Date Unallocated, [place] [address] PCP - General Family Medicine 01/09/24 Compounding Technician Relationship Specialty Start Date End Date Unallocated, [place] [address] PCP - General Family Medicine 01/09/24 Compounding Technician Relationship Specialty Start Date End Date Unallocated, [place] [address] PCP - General Family Medicine 01/09/24 Compounding Technician Relationship Specialty Start Date End Date Unallocated, [place] [address] PCP - General Family Medicine 01/09/24 Compounding Technician Relationship Specialty Start Date End Date Unallocated, [place] [address] PCP - General Family Medicine 01/09/24 Compounding Technician Relationship Specialty Start Date End Date Unallocated, Ricky [facility] [place] [address] PCP - General Family Medicine 01/09/24 Compounding Technician Relationship Specialty Start Date End Date Unallocated, [place] [address] PCP - General Family Medicine 01/09/24 Compounding Technician Relationship Specialty Start Date End Date Unallocated, MD Sharon Angel [place] [address] PCP - General Family Medicine 01/09/24 Compounding Technician Relationship Specialty Start Date End Date Unallocated, Ricky Hernandez [place] [address] PCP - General Family Medicine 01/09/24 Compounding Technician Relationship Specialty Start Date End Date Unallocated, Ricky Hernandez MD Sharon BERGERGabino [facility] [place] [address] PCP - General Family Medicine 01/09/24 Compounding Technician Relationship Specialty Start Date End Date Unallocated, Ricky Hernandez [place] [address] PCP - General Family Medicine 01/09/24 Reason for Visit (unrecogniz ed section and content) Reason Comments Establish Care Specialty Diagnoses / Procedures Referred By Kristen t Referred To Contact Obstetrics and Gynecology Diagnoses Encounter for supervision of normal first , first trimester Procedures please check global maternity benefits EDC 08/22/24 Judith Esquivel MD [address] [address] Judith Esquivel MD [address] [facility] [address] [place] [address] Referral ID Status Reason Start Date Expiration Date V isits Requested Visits Authorized [id number] Closed Other 01/12/2024 07/10/2024 1 1 Reason Comments Routine Visit INFORMATION SOURCE (unrecogn ized section and content) DATE CREATED AUTHOR 08/20/2024 [facility] EPIC FOR RECORDS PERTAINING TO [...] BE BASED ON THE PRIMARY CLINICAL RECORDS. [employer] [facility]. provides no warranty or guarantee of the accuracy or completeness of information in this document.
[2024-08-24 15:34] VITALS: BP 121/83; PULSE 86; TEMP 36.8; O2SAT 96
--- NOTE | 2024-08-24 15:34 | PC.NURSE ---
Sourav De La Cruz and 6 day old Reyna arrive for follow up. Mom states feel great . Denies concerns for self. Does note nipples are scabbed and sore, and perineum tender. Noted to have left labial tear at delivery. Using Tuck, dermaplast and water bottle frequently. Swelling is improved. Given sitz bath with instructions for use at home. Verbalized understanding. Nipples excoriated bilaterally and noted crease areas. Discussed shallow latching and nipple damage. Verbalized understanding. VSS and assessment WNL for Brigette. Baby Reyna awake and fussy, rooting on hands. VSS and assessment WNL except for TcB. Level is 16.8, heel stick obtained for serum level. Specimen to lab. Baby to breast, mom curls and cradle holds baby and infant works to latch. Latch is shallow and infant poorly positioned. LC offers guidance for deeper latching and more comfort for both mom and baby. Shown to use cross cradle hold for more control of breast (large breasted) and for deeper positioning at breast. Mom states WOW, this is so much better . Baby feeds 17 minutes and releases latch. Milk evident in mouth, nipple no longer creased and rounded. Attempt to latch on 2nd breast no interest from infant. Discussed care of breasts and sore nipples. Given Soothies, shells, lanolin and tea bags with instructions/demo. Verbalized understanding. Sourav supportive and helpful with mom and baby. Plans to return 09/01/2024 at 1245 and aware to call for concerns prior to then. Family home, to wait for bili results. Results given to Dr Zarate on unit and discussed assessment of feeds and supply. Reported infant with shallow latch, feeds every 2 hours, has 10 wet/stools diapers in last [address] Zarate requests repeat bili in AM of 08/25/2024. TC to Brigette per this physician underwriter. Explained results and current recommendation to repeat lab as out pt in AM. Verbalized understanding. Aware lab order sent to lab and registration. No further questions at this time.
== END 2024-08-24 15:38 | disposition home or self-care (01) ==
LOC: FBCO 08:25
PROVIDERS: Visit Provider Obstetrics & Gynecology
DX: Z39.2 Encounter for routine postpartum follow-up (principal)

== ENCOUNTER 2024-09-01 08:12 | Outpatient (OUT) | payer OTHER, BC, SELFPAY ==
--- NOTE | 2024-09-01 14:02 | PC.NURSE ---
ginger Machuca and 2 week old Reyna arrive for support. Parents adjusting well, feedings going well and feeling rested. Mom discussed feeling overwhelmed at times when baby won't latch at 2 hour zac. Discussed and encouraged to use baby lead feeding where baby wakes and signals for feeds every 1-3 hours. more interested in feeds when they signal hunger cues. Support and guidance shared and family leaves for home. Will plan to attend [facility] group,
== END 2024-09-01 14:05 | disposition home or self-care (01) ==
LOC: FBCO 08:13
PROVIDERS: Visit Provider Obstetrics & Gynecology
DX: Z39.1 Encounter for care and examination of lactating mother (principal)

== ENCOUNTER 2025-03-10 16:23 | Outpatient (OUT) | payer OTHER, BC, SELFPAY ==
--- OUTSIDE RECORDS SUMMARY | 2025-03-10 16:28 | XMS_ITS | Encounter Summary ---
Author Organization [facility] Address [address] [place] [address] Care Team Providers Care Gaming Cashier Name Role Phone Unallocated, Noms Provider Primary Care Lisai ga Encounter Details Date Type Department Care Team (Late st Contact Info) Description 08/20/2024 Abstract [facility] [place] [place] [address] Gerard Stone DO [address] [place], [place] [id number] Social History Tobacco Use Types Packs/Day Years Used Date Smoking Tobacco: Never Smokeless Tobacco: Never Alcohol Use Standard Drinks/Week Comments Not Currently 0 (1 standard drink = 0.6 oz pure alcohol) caffeine intake: occasionally Comments Yes Sex and Gender Information Value Date Recorded Sex Assigned at Not on file Legal Sex Female 1:09 PM EDT Gender Identity Not on file Sexual Orientation Not on file 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
--- OUTSIDE RECORDS SUMMARY | 2025-03-10 16:28 | XMS_ITS | Encounter Summary ---
Author Organization [facility] Address [address] [place] [address] Care Team Providers Care Director Product Management Name Role Phone Unallocated, Noms Provider Primary Care Lisai ga Encounter Details Date Type Department Care Team (Late st Contact Info) Description 09/10/2024 Abstract CHRISTINE MONTANEZ [facility] [place] [address] Gerard Stone DO [address] [place], [place] [id number] Social History Tobacco Use Types Packs/Day Years [...] EDT Routine CHRISTINE MONTANEZ [address] [place] [address] Gerard Stone DO [address] [place], [place] [id number] documented as of this encounter Visit Diagnoses Not on filedocumented in this encounter Care Teams Director Product Management Relationship Specialty Start Date End Date Unallocated, Noms Provider, [place] [address] PCP - General Family Medicine 01/09/24 documented as of this encounter
--- OUTSIDE RECORDS SUMMARY | 2025-03-10 16:28 | XMS_ITS | Patient Health Record ---
Author Organization [facility] Address [address] [place] [address] Care Team Providers Care Blind Teacher Name Role Phone Telma Montes Primary Care Provider Reason For Referral No Information Plan Of Treatment No Information Insurance Providers Payer Name Payer Address Payer Phone Subscriber Number Group Number Insured Name Patient Relationship to Insured Coverage Start Date Coverage End Date ANTHEM Primary [address] [place] [phone] [id number] JAMIE ESQUIVEL Self - patient is the insured 1
--- OUTSIDE RECORDS SUMMARY | 2025-03-10 16:28 | XMS_ITS | Clinical Summary ---
Author Organization [facility] Address [address] [place] [address] Care Team Providers Care Base Filler Operator Name Role Phone Unallocated, Noms Provider Primary Care Provi ga Allergies No known active allergies Medications Vit-Fe Fumarate-FA ( 19) 29-1 MG chewable tabletIndication s:11 weeks gestation of ([facility]),Encoun ter for supervision of normal first in first trimester ([facility]) Chew 1 tablet Daily Chewable, please dispense what insurance will cover 90 tablet 3 4 Active Encounters Date Type Department Care Team Description 02/11/2025 9:00 [place] [address] [place]: 7w2d 02/11/2025 8:30 AM EDT [place] [address] Missed menses; Positive urine test ([facility]) from Last 3 Months Family History Medical History Relation Name Comments Colon cancer Maternal Grandfather Genetic Disease Carrier Nephew sick le cell anemia Relation Name Status Comments Maternal Grandfather Nephew Alive Social History Tobacco Use Types Packs/Day Years Used Date Smoking Tobacco: Never Smokeless Tobacco: Never Tobacco Cessation:Counseling Given: Not Answered Alcohol Use Standard Drinks/Week Comments Not Currently 0 (1 standard drink = 0.6 oz pure alcohol) caffeine intake: occasionally Estimated Date of Delivery Comme nts Yes 09/28/2025 Based on Ultraso und Sex and Gender Information Value Date Recorded Sex Assigned at Not on file Legal Sex Female 1:09 PM EDT Gender Identity Not on file Sexual Orientation Not on file 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 file Not on file Not o n file Last Filed Vital Signs Vital Sign Reading Time Taken Comments Blood Pressure 120/74 02/11/2025 8:54 AM EDT Pulse - - Temperature - - Respiratory Rate - - Oxygen Saturation - - Inhaled Oxygen Concentration - - Weight 89.4 kg (197 lb) 02/11/2025 8:54 AM EDT Height 170.2 cm (5' 7 ) 02/02/2024 1:15 PM EDT Body Mass Index 30.85 02/02/2024 1:15 PM EDT Plan of Treatment Upcoming Encounters Date Type Department Care Team (Late st Contact Info) Description 03/14/2025 3:20 PM EDT Routine [facility] [address] [address] Gerard Stone DO [address] [facility] [place] [address] Health Maintenance Due Date Last Done Comments Influenza Vaccine (#1) 2025 05/15/2024 Procedures Procedure Name Priority Date/Time Associated Diagnosis Comments US OB TRANSVAGINAL Routine 02/11/2025 8: 50 AM EDT Missed menses Positive urine test ([facility]) POCT URINALYSIS DIPSTICK Routine 02/11/2025 8:50 AM EDT Missed menses POCT , URINE Routine 02/11/2025 8:50 AM EDT Missed menses from Last 3 Months Results * US OB transvaginal (02/11/2025 8:50 AM EDT) Anatomical Region Laterality Modality Body Ultrasound 02/14/2025 2:36 PM EDT Impressions 02/15/2025 9:07 AM EDT Findings consistent with a live intrauterine gestation, current sonographic age of 7 weeks and 2 days resulting in an estimated date of delivery of September 28, 2025. TRANSCRIBED BY: ELECTRONICALLY SIGNED BY: Prabhakar Francois MD Narrative 02/15/2025 9:07 AM EDT FINDINGS: A single intrauterine gestational sac is present. No subchorionic hemorrhage. A single pole is present. Normal heart rate at 142 beats per minute. Yolk sac also is seen. Current sonographic age is 7 weeks and 2 days based on the crown-rump length measurement of 1.1cm. Based on this age, current estimated date of delivery is September 28, 2025. No pelvic fluid or adnexal mass present. Closed cervix. Bilateral ovarian simple and complex 1.1 x -1.5 cm cyst. Procedure Note Prabhakar Francois MD - 02/15/2025 FINDINGS: A single intrauterine gestational sac is present. No subchorionichemorrhage. A single pole is present. Normal heart rate at142 beats per minute. Yolk sac also is seen. Current sonographic age is7 weeks and 2 days based on the crown-rump length measurement of 1.1cm.Based on this age, current estimated date of delivery is September 28, 2025.No pelvic fluid or adnexal mass present. Closed cervix. Bilateral ovarian simple and complex 1.1 x -1.5 cm cyst. IMPRESSION: Findings consistent with a live intrauterine gestation, currentsonographic age of 7 weeks and 2 days resulting in an estimated date ofdelivery of September 28, 2025. TRANSCRIBED BY: ELECTRONICALLY SIGNED BY: Prabhakar Francois MD Gerard Stone DO IMG OB US PROCEDURES Final Resul t * (ABNORMAL) POCT , urine manually resulted (02/11/2025 8:50 AM EDT) Preg Test, Ur Positive Negative Urine 02/11/2025 8:50 AM EDT Gerard Stone DO POINT OF CARE TEST ENTER/EDIT OR DERABLES Final Result * (ABNORMAL) POCT urinalysis dipstick manually resulted (02/11/2025 8:50 AM EDT) Color, UA Yellow Clarity, UA Clear Glucose, UA Negative Negative - 1999(110) ++++ mg/dL Bilirubin, UA Negative Negative - 4(70) +++ mg/dL Ketones, UA Positive Negative - 160(16) ++++ mg/dL Spec Grav, UA 1.020 1 - 1.03 Blood, UA Negative Negative - 50 Choco/mcL pH, UA 6.0 5 - 9 Protein, UA Negative Negative - 1999(20) ++++ mg/dL Urobilinogen, UA 1.0 0.2 - 12 mg/dL Leukocytes, UA 3+ Negative - 500+++ Abhishek/mcL Nitrite, UA Negative Negative - Positive Urine 02/11/2025 8:50 AM EDT [facility] POINT OF CARE TEST ENTER/EDIT OR DERABLES Final Result from Last 3 Months Insurance [facility] Care Teams Base Filler Operator Relationship Specialty Start Date End Date Unallocated, Noms Provider, [address] [place] [address] PCP - General Family Medicine 01/09/24
--- OUTSIDE RECORDS SUMMARY | 2025-03-10 17:14 | XMS_ITS | CCD ---
Author Organization [facility] Care Team Providers Care Surgical Supervisor Name Role Phone Unallocated MD, Noms Provider Primary Care Provi ga BERTHA, WILBER Attending Unavailable BERTHA, WILBER Attending Unavailable BERTHA, WILBER Attending Unavailable BERTHA, WILBER Referring Unavailable BERTHA, WILBER Attending Unavailable BERTHA, WILBER Attending Unavailable SIERRA, PENOLA P Attending Unavailable SIERRA, PENOLA P Attending Unavailable SIERRA, PENOLA P Attending Unavailable SIERRA, PENOLA P Attending Unavailable SIERRA, PENOLA P Attending Unavailable BERTHA, WILBER Attending Unavailable SIERRA, PENOLA P Attending Unavailable BERTHA, WILBER Attending Unavailable Villa, UTILITY DRIVER Jessica Childress Attending Unavailable Quang Avitia Attending Unavailable Allergies Allergy Classification Reported Allergen(s) Allergy Type Date of Onset Reaction(s) Facility (1 source) No Known Medication Allergies; Translations: [No Known Medication Allergies] Propensity to adverse reactions (disorder) [facility] [place] Repository Medications Current Medications Medication Drug Class(es) Dates [...] chewable tablet Indications: 11 weeks gestation of ([facility]) , Encounter for supervision of normal first in first trimester ([facility]) Chew 1 tablet Daily Chewable, please dispense what insurance will cover 90 tablet 3 02/02/2024 Active Start: 02-02-2024 Vit-F e Fumarate-FA ( 19) [...] screening for other viral diseases] 07-26-2024 Episodic Menstrual disorders (2 sources) Missed period; Translations: [Irregular menstruation, unspecified] 02-02-2025 Chronic Nausea and vomiting (12 sources) Nausea and [...] [39 weeks gestation of ] 08-16-2024 Episodic Residual codes; unclassified (1 source) Gestation period, 7 weeks; Translations: [Less than 8 weeks gestation of ] 02-11-2025 Episodic Past or Other Problems Problem Classification [...] Test Name Value Interpretation Reference Range Facility Family Medicine Office/Clini c Noteon 03-02-2025 Family Medicine Office/Clini c Note Family Medicine Office/Clinic Note HPI Staff Jamie is a 24 year old female presenting with physical and wanting to establish *Former [facility] patient* wants to establish care today Patient is 10 weeks and sees Bertha... She sees him on March 14 Tomorrow she is getting labs @ [facility] She gets bad Morning sickness and can not get a hold of any body in Bertha's office, she doesn't think she can wait that long History of Present Illness pt presents today to establish care. Review of Systems PHQ Score Initial Depression Screen Score: 0 SCORE Physical Exam Vitals & Measurements T: 36.4 ???C(Temporal Artery) HR: 88(Peripheral) RR: 18 BP: 118/82 SpO2: 98% HT: 67 in HT: 169.0 cm WT: 194.227 lb WT: 88.1 kg BMI: 30.85 General: alert, no acute distress ENMT: oral mucosa moist, no pharyngeal erythema or exudate Cardiovascular: regular rate and rhythm, normal peripheral perfusion Respiratory: Lungs CTA, respirations non labored Extremities: no deformity, no trauma Neurological: oriented x 4, LOC appropriate for age, CN II-XII intact, motor strength equal & normal bilaterally, speech normal Assessment/Plan 1. Morning sickness (O21.0: Mild hyperemesis gravidarum) pt c/o morning sickness. does not see Dr. Stone until 03/14. will send bartolo to pharmacy. pt has many questions regarding her . she has a 6 month old and is still . encouraged her to talk to Dr. Stone about it. discussed warning signs of labor. all questions answered. RTC as needed 2. Obesity (BMI 30-39.9) (E66.9: Obesity, unspecified) pt is 10 weeks and had a baby 6 months ago. 3. Nonsmoker (Z78.9: Other specified health status) continue not smoking Orders: ondansetron, See Instructions, DISSOLVE 1 TABLET ON THE TONGUE EVERY 6 TO 8 HOURS NEEDED FOR NAUSEA, # 30 tab(s), Refills(s) 1, Pharmacy: [facility]/pharmacy #[id number], 169, cm, 03/02/25 16:19:00 EDT, Height/Length Dosing, 88.1, kg, 03/02/25 16:19:00 EDT, Weight Dosing Follow-up No qualifying data available Problem List/Past Medical History Ongoing Morning sickness Nonsmoker Obesity (BMI 30-39.9) Historical No qualifying data Medications ondansetron 4 mg Dis Tab, See Instructions, 1 refills Vitamin, Daily Allergies No Known Medication Allergies Social History Alcohol Never., 11/01/2024 Substance Abuse Never., 11/01/2024 Tobacco Never (less than 100 in lifetime) Tobacco Use:. Never Smokeless Tobacco Use:. Household tobacco concerns: No. Yes, 03/02/2025 Family History Family history is negative Normal [facility] [place] Comment on above: Result Comment: Elec tronically Signed By: Jessica Trinidad\.br\Date and Time Signed: 03/02/25 17:22 EDT HCG ( test) Ql (U)o n 02-11-2025 Interpretation and review of laboratory results Abnormal [facility] Preg Test, Ur Positive Negative [facility] US OB TRANSVAGINALon 025 US OB TRANSVAGINAL FINDINGS: A single intrauterine gestational sac is [...] BY: ELECTRONICALLY SIGNED BY: Prabhakar Francois MD Normal Not Available Comment on above: Order Comment: US OB TRANSVAGINAL No LMP recorded. Urinalysis macro (dipstick) panel (U)on 02-11-2025 Bilirubin, UA Negative Negative - 4(70) +++ mg/dL [facility] Blood, UA Negative Negative - 50 Choco/mcL [facility] Clarity, UA Clear [facility] Color, UA Yellow [facility] Glucose, UA Negative Negative - 1999(110) ++++ mg/dL [facility] Interpretation and review of laboratory results Abnormal [facility] Ketones, UA Positive Negative - 160(16) ++++ mg/dL [facility] Leukocytes, UA 3+ Negative - 500+++ Abhishek/mcL [facility] Nitrite, UA Negative Negative - Positive [facility] pH, UA 6 5 - 9 [facility] Protein, UA Negative Negative - 1999(20) ++++ mg/dL [facility] Spec Grav, UA 1.02 1 - 1.03 [facility] Urobilinogen, UA 1.0 0.2 - 12 mg/dL [facility] Ambulatory Visit Summaryon 0 11-01-2024 Ambulatory Visit Summary Ambulatory Visi t Summary JAMIE ESQUIVEL :2000 Visit Date:11/01/2024 Ambulatory Visit Instructions Your Diagnosis Rash BMI 32.0-32.9,adult Obesity (BMI 30-39.9) Nonsmoker Your Care Team Attending Physician - Quang Avitia MD Primary Care Physician - Quang Avitia MD Discharge Vitals Temperature (Tympanic) 36.8 ???C Heart Rate (Peripheral) 102 Respiratory Rate 18 Blood Pressure 122/78 Height 169 cm Height 67 in Weight 92.3 kg Weight 203.486 lb BMI 32.32 What to do next Scheduled Follow-Up Appointments Friday 4:00 PM EDT With: Jessica Trinidad Where: [facility] Medicine [address] [address]- Allergies No Known Medication Allergies Problems Ongoing - Any problem that you are currently receiving treatment for. BMI 32.0-32.9,adult Nonsmoker Obesity (BMI 30-39.9) Patient Survey You may receive a survey via text or e-mail asking about your office visit. Please share your experience with us by completing your survey. We appreciate your feedback and thank you for choosing us for your care. Normal [facility] Medicine Office/Clini c Noteon 11-01-2024 [facility] Medicine Office/Clini c Note Family Medicine Office/Clinic Note Chief Complaint Establish Care The patient presents with an unexplained rash that appeared overnight. HPI Staff Pt is a new pt, Here today to Establish Care: History: Any previous diagnosis: no History of seeing any specialist: no When was your last doctors visit: last year for wellness Last provider: [facility] Any recent labs: labs while Health Maintenance UTD: Mammogram: no Pelvic/Pap: last year Acute: Current issues/complaints : Does have a cyst/boil/bump on groin area that she noticed last night. History of Present Illness - The patient is a 23 year old female presenting with a rash. - Rash onset overnight, noticed at 1:30 AM after pumping. - Described as similar to an ingrown hair or pimple. - No prior similar lesions reported. - Concern for -relate d changes. - Recent childbirth at [facility]. - Immunizations up-to-date. - COVID-19 vaccine administered during . - Tdap vaccination administered during . - Flu shot received during . - Patient scheduled for Pap smear in January. Review of Systems PHQ Score Initial Depression Screen Score: 0 SCORE Physical Exam Vitals & Measurements T: 36.8 ???C(Tympanic) HR: 102(Peripheral) RR: 18 BP: 122/78 SpO2: 98% HT: 169 cm HT: 67 in WT: 203.486 lb WT: 92.3 kg BMI: 32.32 General: alert, no acute distress ENMT: oral mucosa moist Cardiovascular: Regular rate and rhythm, normal peripheral perfusion Respiratory: Lungs clear to auscultation, respirations non labored Extremities: no deformity, no trauma Neurological: oriented x 4, level of consciousness appropriate for age, CN II-XII intact, motor strength equal & normal bilaterally, speech normal Abdomen: Soft, Non-tender, Non-distended, + Bowel sounds Assessment/Plan 1. Rash (R21: Rash and other nonspecific skin eruption) - Warm compresses advised. - Monitor progress; consider antibiotics if unresolved in a week. - Breast feeding. 2. BMI 32.0-32.9,adult (Z68.32: Body mass index [BMI] 32.0-32.9, adult) - BMI education added 3. Obesity (BMI 30-39.9) (E66.9: Obesity, unspecified) - Diet and exercise advised 4. Nonsmoker (Z78.9: Other specified health status) - Please continue to not smoke. 5. Sebaceous cyst (L72.3) - Warm compresses recommended. - 23 year old female with history of recent childbirth presenting with a rash. - Likely sebaceous cyst. I discussed with the patient that the lesion observed is likely an inclusion cyst or sebaceous cyst, typically benign and self-limiting. Advised using warm compresses to promote natural drainage. We agreed to monitor the area for one week, with follow-up for potential antibiotic treatment if the lesion does not improve. We discussed her recent vaccinations and confirmed that no additional vaccinations were needed. I advised her to continue with her scheduled Pap smear in January and emphasized the importance of ongoing preventative care. We discussed changes and reassured her regarding her health status. I confirmed her up-to-date immunization status and absence of concerns requiring further action at this time. Follow-up No qualifying data available Problem List/Past Medical History Ongoing BMI 32.0-32.9,adult Nonsmoker Obesity (BMI 30-39.9) Historical No qualifying data Medications No active medications Allergies No Known Medication Allergies Social History Alcohol Never., 11/01/2024 Substance Abuse Never., 11/01/2024 Tobacco Never (less than 100 in lifetime) Tobacco Use:. Never Smokeless Tobacco Use:. Household tobacco concerns: No. Yes, 11/01/2024 Family History Family history is negative Normal [facility] [place] Comment on above: Result Comment: Elec tronically Signed By: Sadi VALADEZ, Quang Zuñiga\.br\Date and Time Signed: 11/01/24 14:59 EDT Urinalysis macro (dipstick) panel (U)on 09-30-2024 Bilirubin, UA Negative Negative - 4(70) +++ mg/dL [facility] Blood, UA Positive Negative - 50 Choco/mcL [facility] Comment on above: moderate Clarity, UA Clear [facility] Color, UA Yellow [facility] Glucose, UA Negative Negative - 1999(110) ++++ mg/dL [facility] Interpretation and review of laboratory results Abnormal [facility] Ketones, UA Negative Negative - 160(16) ++++ mg/dL [facility] Leukocytes, UA Positive Negative - 500+++ Abhishek/mcL [facility] Comment on above: small Nitrite, UA Negative Negative - Positive [facility] pH, UA 6 5 - 9 [facility] Protein, UA Negative Negative - 1999(20) ++++ mg/dL [facility] Spec Grav, UA 1.02 1 - 1.03 [facility] Urobilinogen, UA 0.2 0.2 - 12 mg/dL [facility] ALL CBC WITH AUTO DIFFon BASOPHILS ABSOLUTE AUTO 0.1 N [facility] Basophils/100 WBC (Bld) 0.3 % 0.2 - 2.0 % [facility] Eosinophils/100 WBC (Bld) 0.1 % Low 0.9 - 7.0 % [facility] Erythrocyte distribution wid th (RBC) [Ratio] 13.9 % 11.0 - 15.0 % [facility] Hematocrit (Bld) [Volume fraction] 27.4 % Low 36.0 - 48.0 % [facility] Hemoglobin (Bld) [Mass/Vol] 9.3 g/dL Low 12.0 - 16.0 g/dL [facility] IMMATURE GRANULOCYTES ABS AUTO 0.19 High [facility] Immature granulocytes/100 WB C (Bld) 1.1 % High 0.0 - 0.5 % [facility] Interpretation and review of laboratory results Abnormal [facility] LYMPHOCYTES ABSOLUTE AUTO 2.7 [facility] Lymphocytes/100 WBC (Bld) 15.1 % Low 20 .5 - 60.0 % [facility] MCH (RBC) [Entitic mass] 29.3 pg 26. 7 - 34.0 pg [facility] MCHC (RBC) [Mass/Vol] 33.9 g/dL 29.9 - 35.2 g/dL [facility] MCV (RBC) [Entitic vol] 86.4 fL 81.0 - 99.0 fL [facility] MONOCYTES ABSOLUTE AUTO 1.4 High N [facility] Monocytes/100 WBC (Bld) 7.9 % 1.7 - 12.0 % [facility] NEUTROPHILS ABSOLUTE AUTO 13.5 High [facility] Neutrophils/100 WBC (Bld) 75.5 % High 43 .0 - 75.0 % [facility] Platelet mean volume (Bld) [Entitic vol] 10 fL 9.5 - 13.5 fL [facility] TBH EO # 0 [facility] TBH PLT 303 [facility] RBC 3.17 Low [facility] WBC 17.9 High [facility] TB UA (CLEAN/CATCH) YOUTH DEVELOPMENT PROFESSIONAL/WESLEY RO IF IND.on 08-17-2024 BILIRUBIN URINE Negative NEGATIVE [facility] BLOOD URINE SMALL Abnormal NEGATIVE [facility] Clarity (U) CLEAR CLEAR [facility] Color (U) LT. YELLOW YELLOW [facility] GLUCOSE URINE UA Negative NEGATIVE mg/dL [facility] Interpretation and review of laboratory results Abnormal [facility] Ketones Ql (U) Negative NEGATIVE mg/dL [facility] Leukocyte esterase Test stri p Ql (U) LARGE Abnormal NEGATIVE [facility] NITRITE URINE Negative NEGATIVE [facility] pH (U) 6.5 [pH] 5.0 - 9.0 [facility] PROTEIN URINE Negative NEG/TRACE mg/dL [facility] SPECIFIC GRAVITY URINE 1.010 1.005 - 1.025 [facility] URINE MICROSCOPIC INDICATED YES [facility] UROBILINOGEN URINE 0.2 EU/dL 0.2 - 1.0 EU/dL [facility] US OB FOLLOW UP TRANSABDOMIN AL APPROACHon [...] 3601 gm / 7 lbs, 15 oz (6740-7004 gm) [place] Normal: 3488 gm (6486-7037 gm) [place] Wt%: 61% for 39.3 wks [...] Negative Negative - 4(70) +++ mg/dL [facility] Blood, UA Positive Negative - 50 Choco/mcL [facility] Comment on above: small Clarity, UA Clear [facility] Color, UA Yellow [facility] Glucose, UA Negative Negative - 1999(110) ++++ mg/dL [facility] Interpretation and review of laboratory results Abnormal [facility] Ketones, UA Negative Negative - 160(16) ++++ mg/dL [facility] Leukocytes, UA Positive Negative - 500+++ Abhishek/mcL [facility] Comment on above: small Nitrite, UA Negative Negative - Positive [facility] pH, UA 6.5 5 - 9 [facility] Protein, UA Negative Negative - 2000(20) ++++ mg/dL [facility] Spec Grav, UA 1.013 1 - 1.03 [facility] Urobilinogen, UA 0.2 0.2 - 12 mg/dL [facility] Urinalysis macro (dipstick) panel (U)on 08-03-2024 Bilirubin, UA Negative Negative - 4(70) +++ mg/dL [facility] Blood, UA Positive Negative - 50 Choco/mcL [facility] Comment on above: trace-intact Clarity, UA Clear [facility] Color, UA Yellow [facility] Glucose, UA Negative Negative - 1999(110) ++++ mg/dL [facility] Interpretation and review of laboratory results Abnormal [facility] Ketones, UA Positive Negative - 160(16) ++++ mg/dL [facility] Comment on above: trace Leukocytes, UA Positive Negative - 500+++ Abhishek/mcL [facility] Comment on above: large Nitrite, UA Negative Negative - Positive [facility] pH, UA 7 5 - 9 [facility] Protein, UA Positive Negative - 1999(20) ++++ mg/dL [facility] Comment on above: 30 Spec Grav, UA 1.02 1 - 1.03 [facility] Urobilinogen, UA 0.2 0.2 - 12 mg/dL [facility] ALL MISCELLANEOUS TESTon MISCELLANEOUS TEST COMMENT . [facility] Comment on above: Test Ordered: [id number] Strep Gp B Culture+Rflx Strep Gp B Culture+Rflx Positive [A ] CB Reference Range: Negative Centers for Disease Control and Prevention (CDC) and [place] [employer] Gynec[employer] (ACOG) guidelines [...] at high risk for anaphylaxis. Performed at: [facility] [id number] [employer]astic: Quoc Domínguez PhD, Phone: [phone] Group B Streptococcus Colonization Detection Culture With Re [facility] Urinalysis macro (dipstick) panel (U)on 07-26-2024 Bilirubin, UA Negative Negative - 4(70) +++ mg/dL [facility] Blood, UA Positive Negative - 50 Choco/mcL [facility] Clarity, UA Clear [facility] Color, UA Yellow [facility] Glucose, UA Negative Negative - 1999(110) ++++ mg/dL [facility] Interpretation and review of laboratory results Abnormal [facility] Ketones, UA Negative Negative - 160(16) ++++ mg/dL [facility] Leukocytes, UA Positive Negative - 500+++ Abhishek/mcL [facility] Nitrite, UA Negative Negative - Positive [facility] pH, UA 7 5 - 9 [facility] Protein, UA Trace Negative - 1999(20) ++++ mg/dL [facility] Spec Grav, UA 1.025 1 - 1.03 [facility] Urobilinogen, UA 0.2 0.2 - 12 mg/dL [facility] Urinalysis macro (dipstick) panel (U)on 07-12-2024 Bilirubin, UA Negative Negative - 4(70) +++ mg/dL [facility] Blood, UA Negative Negative - 50 Choco/mcL [facility] Clarity, UA Clear [facility] Color, UA Yellow [facility] Glucose, UA Negative Negative - 1999(110) ++++ mg/dL [facility] Interpretation and review of laboratory results Abnormal [facility] Ketones, UA Negative Negative - 160(16) ++++ mg/dL [facility] Leukocytes, UA Positive Negative - 500+++ Abhishek/mcL [facility] Nitrite, UA Negative Negative - Positive [facility] pH, UA 7 5 - 9 [facility] Protein, UA Positive Negative - 1999(20) ++++ mg/dL [facility] Spec Grav, UA 1.025 1 - 1.03 [facility] Urobilinogen, UA 0.2 0.2 - 12 mg/dL [facility] Urinalysis macro (dipstick) panel (U)Ordered By: Cathy Ferreira on 05-19-2024 Bilirubin, UA Negative Negative - 4(70) +++ mg/dL [facility] Blood, UA Negative Negative - 50 Choco/mcL [facility] Clarity, UA Clear [facility] Color, UA Yellow [facility] Glucose, UA Negative Negative - 1999(110) ++++ mg/dL [facility] Interpretation and review of laboratory results Abnormal [facility] Ketones, UA Negative Negative - 160(16) ++++ mg/dL [facility] Leukocytes, UA Positive Negative - 500+++ Abhishek/mcL [facility] Nitrite, UA Negative Negative - Positive [facility] pH, UA 7.5 5 - 9 [facility] Protein, UA Negative Negative - 1999(20) ++++ mg/dL [facility] Spec Grav, UA 1.01 1 - 1.03 [facility] Urobilinogen, UA 1.0 0.2 - 12 mg/dL [facility] Urinalysis macro (dipstick) panel (U)on 05-04-2024 Bilirubin, UA Negative Negative - 4(70) +++ mg/dL [facility] Blood, UA Negative Negative - 50 Choco/mcL [facility] Clarity, UA Clear [facility] Color, UA Yellow [facility] Glucose, UA Negative Negative - 1999(110) ++++ mg/dL [facility] Interpretation and review of laboratory results Normal [facility] Ketones, UA Negative Negative - 160(16) ++++ mg/dL [facility] Leukocytes, UA Positive Negative - 500+++ Abhishek/mcL [facility] Nitrite, UA Negative Negative - Positive [facility] pH, UA 8 5 - 9 [facility] Protein, UA Negative Negative - 1999(20) ++++ mg/dL [facility] Spec Grav, UA 1.005 1 - 1.03 [facility] Urobilinogen, UA 1.0 0.2 - 12 mg/dL [facility] Urinalysis macro (dipstick) panel (U)on 04-08-2024 Bilirubin, UA Negative Negative - 4(70) +++ mg/dL [facility] Blood, UA Negative Negative - 50 Choco/mcL [facility] Clarity, UA Clear [facility] Color, UA Yellow [facility] Glucose, UA Negative Negative - 1999(110) ++++ mg/dL [facility] Interpretation and review of laboratory results Abnormal [facility] Ketones, UA Negative Negative - 160(16) ++++ mg/dL [facility] Leukocytes, UA Positive Negative - 500+++ Abhishek/mcL [facility] Nitrite, UA Negative Negative - Positive [facility] pH, UA 8.5 5 - 9 [facility] Protein, UA Negative Negative - 1999(20) ++++ mg/dL [facility] Spec Grav, UA 1.015 1 - 1.03 [facility] Urobilinogen, UA 1.0 0.2 - 12 mg/dL [facility] Urinalysis macro (dipstick) panel (U)Ordered By: Cathy Ferreira on 03-09-2024 Bilirubin, UA Negative Negative - 4(70) +++ mg/dL [facility] Blood, UA Negative Negative - 50 Choco/mcL [facility] Clarity, UA Clear [facility] Color, UA Yellow [facility] Glucose, UA Negative Negative - 1999(110) ++++ mg/dL [facility] Interpretation and review of laboratory results Abnormal [facility] Ketones, UA Negative Negative - 160(16) ++++ mg/dL [facility] Leukocytes, UA Positive Negative - 500+++ Abhishek/mcL [facility] Nitrite, UA Negative Negative - Positive [facility] pH, UA 8.5 5 - 9 [facility] Protein, UA Negative Negative - 1999(20) ++++ mg/dL [facility] Spec Grav, UA 1.005 1 - 1.03 [facility] Urobilinogen, UA 1.0 0.2 - 12 mg/dL [facility] Urinalysis macro (dipstick) panel (U)on 02-24-2024 Bilirubin, UA Negative Negative - 4(70) +++ mg/dL [facility] Blood, UA Negative Negative - 50 Choco/mcL [facility] Clarity, UA Clear [facility] Color, UA Yellow [facility] Glucose, UA Negative Negative - 1999(110) ++++ mg/dL [facility] Interpretation and review of laboratory results Abnormal [facility] Ketones, UA Negative Negative - 160(16) ++++ mg/dL [facility] Leukocytes, UA Positive Negative - 500+++ Abhishek/mcL [facility] Nitrite, UA Negative Negative - Positive [facility] pH, UA 8.0 5 - 9 [facility] Protein, UA Negative Negative - 1999(20) ++++ mg/dL [facility] Spec Grav, UA 1.010 1 - 1.03 [facility] Urobilinogen, UA 1.0 0.2 - 12 mg/dL [facility] - Cytologyon 08-0 [employer] Cyto stain Nom (Cvx/Vag) [ID] [facility] Comment on above: CMB, CT(ASCP) CT Scr eening Location: [facility], [address] [place] [address] Cytology study comment Cyto stain Saravanan (Cvx/Vag) [Interp] [facility] Comment on above: This Pap test has be en evaluated with computer assisted technology. Microscopic observation Cyto stain Nom (Cvx) [facility] Comment on above: Cytology Results: Ne gative for intraepithelial lesion or malignancy. Specimen source Cyto stain N om (Cvx/Vag) [facility] Comment on above: None given Statement of adequacy Cyto stain (Cvx/Vag) [Interp] [facility] Comment on above: Satisfactory for vicente luation. Endocervical/transformation zone component absent. Laboratory - Microbiology an d Antimicrobial susceptibilityon 02-03-2024 HPV E6+E7 mRNA NITHYA+probe Ql (Cvx) Not detected Not Detected [facility] Comment on above: Methodology: Transcr [...] options. For additional information, please refer to http://education.WHObyYOU/faq/FVJ349q3 (This link if provided for information/ educational purposes only.) No Panel Informationon 02-02 (ALWAYS MESSAGE) [facility] Comment on above: EXPLANATORY NOTE: [...] historic and current clinical information. Clinical information [facility] Comment on above: None given Date of previous biopsy [facility] Comment on above: None given Date of previous PAP smear [facility] Comment on above: None given Last menstrual period start date [facility] Comment on above: None given Performing Organization Information Site ID: [id number] Name: [facility] Address: [place] , [address] [place] [phone] Director: Ketan Sutherland MD [facility] Drugs of abuse panel Screen (U)on 02-02-2024 Amphetamines Ql (U) Negative [facility] Barbiturates Ql (U) [facility] Benzodiazepines Ql (U) Negative NO [facility] Benzoylecgonine Ql (U) Negative NO [facility] Carboxy tetrahydrocannabinol (Mec) [Mass/Mass] Negative [facility] Interpretation and review of laboratory results Normal [facility] Methadone (U) [Mass/Vol] Negative [facility] Methylenedioxymethamphetamin e Screen Ql (U) Negative [facility] Morphine (U) [Mass/Vol] Negative [facility] Opiates Ql (U) Negative [facility] oxyCODONE Ql (U) Negative [facility] Phencyclidine Ql (U) Negative [facility] Reference Lab Test ID Negative [facility] Tricyclic antidepressants [Mass/Vol] Negative [facility] Laboratory - Specimen inform ationon 02-02-2024 Specimen type Nom (Spec) swab [facility] No Panel Informationon 02-01 GONORRHOEAE DNA(PCR) Negative [facility] Interpretation and review of laboratory results Normal [facility] Urinalysis macro (dipstick) panel (U)Ordered By: Cathy Ferreira on 02-02-2024 Bilirubin, UA Negative Negative - 4(70) +++ mg/dL [facility] Blood, UA Negative Negative - 50 Choco/mcL [facility] Clarity, UA Clear [facility] Color, UA Yellow [facility] Glucose, UA Negative Negative - 1999(110) ++++ mg/dL [facility] Interpretation and review of laboratory results Abnormal [facility] Ketones, UA Positive Negative - 160(16) ++++ mg/dL [facility] Leukocytes, UA Positive Negative - 500+++ Abhishek/mcL [facility] Nitrite, UA Negative Negative - Positive [facility] pH, UA 6.5 5 - 9 [facility] Protein, UA Negative Negative - 1999(20) ++++ mg/dL [facility] Spec Grav, UA 1.025 1 - 1.03 [facility] Urobilinogen, UA 1.0 0.2 - 12 mg/dL [facility] Vital Signs Date Time Vital Sign Value Performing Clinician Georgette rao 02-11-2025 08:54-0400 Body mass index (BMI) [Ratio] 30.85 kg/m2 Bertha Ob [facility] 02-11-2025 08:54-0400 Body weight 89.36 kg Bertha Ob [facility] 02-11-2025 08:54-0400 Diastolic blood pressure 74 mm[Hg] Bertha Ob [facility] 02-11-2025 08:54-0400 Systolic blood pressure 120 mm[Hg] Bertha Ob [facility] 09-30-2024 10:27-0400 Body mass index (BMI) [Ratio] 31.7 kg/m2 Wilber Bertha DO Work Phone: [facility] 09-30-2024 10:27-0400 Body weight 91.81 kg Wilber Bertha DO Work Phone: [facility] 09-30-2024 10:27-0400 Diastolic blood pressure 82 mm[Hg] Wilber Bertha DO Work Phone: [facility] 09-30-2024 10:27-0400 Systolic blood pressure 120 mm[Hg] Wilber Bertha DO Work Phone: [facility] 08-16-2024 16:07-0500 Body mass index (BMI) [Ratio] 36.81 kg/m2 Wilber Bertha DO Work Phone: [facility] 08-16-2024 16:07-0500 Body weight 106.59 kg Wilber Bertha DO Work Phone: [facility] 08-16-2024 16:07-0500 Diastolic blood pressure 70 mm[Hg] Wilber Bertha DO Work Phone: [facility] 08-16-2024 16:07-0500 Systolic blood pressure 122 mm[Hg] Wilber Bertha DO Work Phone: [facility] 08-11-2024 15:52-0500 Body mass index (BMI) [Ratio] 37.87 kg/m2 Wilber Bertha DO Work Phone: [facility] 08-11-2024 15:52-0500 Body weight 109.68 kg Wilber Bertha DO Work Phone: [facility] 08-11-2024 15:52-0500 Diastolic blood pressure 76 mm[Hg] Wilber Bertha DO Work Phone: [facility] 08-11-2024 15:52-0500 Systolic blood pressure 114 mm[Hg] Wilber Bertha DO Work Phone: [facility] 08-03-2024 15:17-0500 Body mass index (BMI) [Ratio] 36.4 kg/m2 Wilber Bertha DO Work Phone: [facility] 08-03-2024 15:17-0500 Body weight 105.42 kg Wilber Bertha DO Work Phone: [facility] 08-03-2024 15:17-0500 Diastolic blood pressure 74 mm[Hg] Wilber Bertha DO Work Phone: [facility] 08-03-2024 15:17-0500 Systolic blood pressure 110 mm[Hg] Wilber Bertha DO Work Phone: [facility] 07-26-2024 13:20-0500 Body mass index (BMI) [Ratio] 35.71 kg/m2 Wilber Bertha DO Work Phone: [facility] 07-26-2024 13:20-0500 Body weight 103.42 kg Wilber Bertha DO Work Phone: [facility] 07-26-2024 13:20-0500 Diastolic blood pressure 78 mm[Hg] Wilber Bertha DO Work Phone: [facility] 07-26-2024 13:20-0500 Systolic blood pressure 124 mm[Hg] Wilber Bertha DO Work Phone: [facility] 07-12-2024 14:28-0500 Body mass index (BMI) [Ratio] 35.08 kg/m2 Wilber Bertha DO Work Phone: [facility] 07-12-2024 14:28-0500 Body weight 101.61 kg Wilber Bertha DO Work Phone: [facility] 07-12-2024 14:28-0500 Diastolic blood pressure 74 mm[Hg] Wilber Bertha DO Work Phone: [facility] 07-12-2024 14:28-0500 Systolic blood pressure 122 mm[Hg] Wilber Bertha DO Work Phone: [facility] 05-19-2024 14:36-0500 Body mass index (BMI) [Ratio] 32.73 kg/m2 Judith Esquivel MD Work Phone: [facility] 05-19-2024 14:36-0500 Body weight 94.8 kg Judith Esquivel MD Work Phone: [facility] 05-19-2024 14:36-0500 Diastolic blood pressure 60 mm[Hg] Judith Esquivel MD Work Phone: [facility] 05-19-2024 14:36-0500 Systolic blood pressure 98 mm[Hg] Judith Esquivel MD Work Phone: [facility] 05-04-2024 16:26-0500 Body mass index (BMI) [Ratio] 32.42 kg/m2 Judith Esquivel MD Work Phone: [facility] 05-04-2024 16:26-0500 Body weight 93.89 kg Judith Esquivel MD Work Phone: [facility] 05-04-2024 16:26-0500 Diastolic blood pressure 58 mm[Hg] Judith Esquivel MD Work Phone: [facility] 05-04-2024 16:26-0500 Systolic blood pressure 100 mm[Hg] Judith Esquivel MD Work Phone: [facility] 04-08-2024 08:23-0400 Body mass index (BMI) [Ratio] 30.85 kg/m2 Judith Esquivel MD Work Phone: [facility] 04-08-2024 08:23-0400 Body weight 89.36 kg Judith Esquivel MD Work Phone: [facility] 04-08-2024 08:23-0400 Diastolic blood pressure 62 mm[Hg] Judith Esquivel MD Work Phone: [facility] 04-08-2024 08:23-0400 Systolic blood pressure 100 mm[Hg] Judith Esquivel MD Work Phone: [facility] 03-09-2024 08:53-0400 Body mass index (BMI) [Ratio] 29.76 kg/m2 Judith Esquivel MD Work Phone: [facility] 03-09-2024 08:53-0400 Body weight 86.18 kg Judith Esquivel MD Work Phone: [facility] 03-09-2024 08:53-0400 Diastolic blood pressure 60 mm[Hg] Judith Esquivel MD Work Phone: [facility] 03-09-2024 08:53-0400 Systolic blood pressure 100 mm[Hg] Judith Esquivel MD Work Phone: [facility] 02-24-2024 09:01-0400 Body mass index (BMI) [Ratio] 29.44 kg/m2 Judith Esquivel MD Work Phone: [facility] 02-24-2024 09:01-0400 Body weight 85.28 kg Judith Esquivel MD Work Phone: [facility] 02-24-2024 09:01-0400 Diastolic blood pressure 58 mm[Hg] Judith Esquivel MD Work Phone: [facility] 02-24-2024 09:01-0400 Systolic blood pressure 98 mm[Hg] Judith Esquivel MD Work Phone: [facility] 02-02-2024 13:15-0400 Body height 170.2 cm Judith Esquivel MD Work Phone: [facility] 02-02-2024 12:55-0400 Body mass index (BMI) [Ratio] 29.76 kg/m2 Judith Esquivel MD Work Phone: [facility] 02-02-2024 12:55-0400 Body weight 86.18 kg Judith Esquivel MD Work Phone: [facility] 02-02-2024 12:55-0400 Diastolic blood pressure 68 mm[Hg] Judith Esquivel MD Work Phone: [facility] 02-02-2024 12:55-0400 Systolic blood pressure 108 mm[Hg] Judith Esquivel MD Work Phone: [facility] Encounters Encounter Date Encounter Type Care Provider Facility Start: 03-02-2025 End: 03-02-2025 ambulatory UTILITY DRIVER Jessica Driver Facility:[facility] [address] Start: 02-11-2025 End: 02-11-2025 Office outpatient visit 5 minutes Bertha Nurse [facility] Comment on above: GA: 7w2d Start: 02-11-2025 End: 02-11-2025 ambulatory WILBER BERTHA Not Available Start: 11-01-2024 End: 11-01-2024 [facility] Start: 09-30-2024 End: 09-30-2024 care visit Wilber Bertha DO Work Phone: [facility] Comment on above: 6 weeks f ollow-up Start: 09-30-2024 End: 09-30-2024 ambulatory WILBER BERTHA Not Available Start: 09-21-2024 ambulatory UTILITY DRIVER Jessica Driver Facilit y: NATAL[facility]ock[facility] Start: 08-19-2024 End: 08-19-2024 Clinisync Result Encounter [...] JIANG Work Phone: [facility] Start: 06-10-2024 End: 06-10-2024 ambulatory JUDITH ESQUIVEL Not Available Start: 06-10-2024 End: 06-10-2024 ambulatory WILBER BERTHA Not Available Start: 05-31-2024 End: 05-31-2024 Bamboo flowsheet Wilber Bertha DO Work Phone: [facility] Start: 05-31-2024 End: 05-31-2024 Bamboo flowsheet Wilber Bertha DO Work Phone: [facility] Start: 05-31-2024 End: 05-31-2024 flow sheet Wilber Bertha DO Work Phone: [facility] Comment on above: [facility]; 28 weeks gestation of ; Third trimester Start: 05-31-2024 End: 05-31-2024 ambulatory WILBER BERTHA Not Available Start: 05-19-2024 End: 05-19-2024 flow sheet Judith Esquivel MD Work Phone: [facility] Comment on above: 26 weeks gestation o f ; Second trimester ; Poor weight gain (0-17); Nausea and vomiting, unspecified vomiting type Start: 05-19-2024 End: 05-19-2024 ambulatory JUDITH ESQUIVEL Not Available Start: 05-15-2024 End: 05-15-2024 Orders Only Judith Esquivel MD Work Phone: [facility] Comment on above: Anemia, unspecified type (Primary Dx) Start: 05-04-2024 End: 05-04-2024 flow sheet Judith Esquivel MD Work Phone: [facility] Comment on above: 24 weeks gestation o f ; Second trimester ; Poor weight gain (0-17); Nausea and vomiting, unspecified vomiting type; Screening for diabetes mellitus (DM); Leukocytes in urine Start: 05-04-2024 End: 05-04-2024 ambulatory JUDITH ESQUIVEL Not Available Start: 05-04-2024 End: 05-04-2024 Bamboo flowsheet Judith Esquivel MD Work Phone: [facility] Start: 05-04-2024 End: 05-04-2024 Bamboo flowsja Esquivel MD Work Phone: [facility] Start: 04-08-2024 End: 04-08-2024 Bamboo flowsja Esquivel MD Work Phone: [facility] Start: 04-08-2024 End: 04-08-2024 Bamboo flowsheet Judith Esquivel MD Work Phone: [facility] Start: 04-08-2024 End: 04-08-2024 flow sheet Judith Esquivel MD Work Phone: [facility] Comment on above: 20 weeks gestation o f ; Second trimester ; Poor weight gain (0-17); Nausea and vomiting, unspecified vomiting type; Leukocytes in urine Start: 04-08-2024 End: 04-08-2024 ambulatory JUDITH ESQUIVEL Not Available Start: 04-05-2024 End: 04-05-2024 ambulatory WILBER BERTHA Not Available Start: 03-09-2024 End: 03-09-2024 Bamboo flowsja Esquivel MD Work Phone: [facility] Start: 03-09-2024 End: 03-09-2024 Bamboo flowsja Esquivel MD Work Phone: [facility] Start: 03-09-2024 End: 03-09-2024 flow sheet Judith Esquivel MD Work Phone: [facility] Comment on above: Pyuria (Primary Dx); 16 weeks gestation of ; Second trimester ; Poor weight gain (0-17); Nausea and vomiting, unspecified vomiting type; care, subsequent in first trimester; Screening for genetic disease carrier status Start: 03-09-2024 End: 03-09-2024 ambulatory JUDITH ESQUIVEL Not Available Start: 02-27-2024 End: 02-27-2024 ambulatory WILBER BERTHA Not Available Start: 02-24-2024 End: 02-24-2024 Bamboo flowsja Esquivel MD Work Phone: [facility] Start: 02-24-2024 End: 02-24-2024 Bamboo flowsja Esquivel MD Work Phone: [facility] Start: 02-24-2024 End: 02-24-2024 flow sheet Judith Esquivel MD Work Phone: [facility] Comment on above: Poor weight gain (0- 17) (Primary Dx); 14 weeks gestation of ; Second trimester ; Ketonuria; Nausea and vomiting, unspecified vomiting type Start: 02-24-2024 End: 02-24-2024 ambulatory JUDITH ESQUIVEL Not Available Start: 02-02-2024 End: 02-02-2024 Initial care visit Judith Esquivel MD Work Phone: [facility] Comment on above: GA: 11w1d Procedures Date Procedure Procedure Detail Performing Clinician Start: 02-11-2025 Urnls dip stick/tabl et rgnt non-auto w/o micrscp Wilber Bertha DO Work Phone: Start: 09-30-2024 Urnls dip stick/tabl et rgnt non-auto w/o micrscp Wilber Bertha DO Work Phone: Start: 08-19-2024 ALL CBC WITH AUTO DIFF Wilber Bertha DO Work Phone: Start: 08-17-2024 TBH UA (CLEAN/CATCH) YOUTH DEVELOPMENT PROFESSIONAL/MICRO IF IND. Wilber Bertha DO Work Phone: [...] Treatment Date Care Activity Detail Author Start: 03-14-2025 End: 03-14-2025 Patient encounter procedure 03/14/2025 3:20 PM EDT Routine [facility] [address] [place] [id number] Wilber Stone, [address] [place] [address] [facility] [place] [facility] Start: 02-28-2025 Influenza vaccination Influenza Vacc ine (#1) [facility] Start: 02-11-2025 End: 02-11-2026 ABO/Rh ABO/Rh Lab Routine Missed menses , unspecified gestational age ([facility]) Expected: 02/11/2025 (Approximate), Expires: 02/11/2026 [facility] Comment on above: Expected: 02/11/2025 (Approximate), Expires: 02/11/2026 Start: 02-11-2025 End: 02-11-2026 Blood type and Indirect antibody screen panel - Blood Type and screen Lab Routine Missed menses , unspecified gestational age ([facility]) Expected: 02/11/2025 (Approximate), Expires: 02/11/2026 [facility] Comment on above: Expected: 02/11/2025 (Approximate), Expires: 02/11/2026 Start: 02-11-2025 End: 02-11-2026 Drugs of abuse panel - Urine by Screen method Rapid drug screen, urine Lab Routine , unspecified gestational age ([facility]) Encounter for supervision of normal first in first trimester ([facility]) Expected: 02/11/2025 (Approximate), Expires: 02/11/2026 [facility] Comment on above: Expected: 02/11/2025 (Approximate), Expires: 02/11/2026 Start: 02-03-2025 End: 02-03-2025 Patient encounter procedure 02/03/2025 9:20 AM EDT Office Visit [facility] [address] [place] [phone] Wilber Stone, DO [address] [place] [address] [facility] Start: 02-02-2025 End: 05-05-2025 US Pelvis transvaginal US OB transvaginal Imaging Routine Missed menses Positive urine test ([facility]) Expected: 02/02/2025, Expires: 05/05/2025 [facility] Work Phone: Comment on above: Expected: 02/02/2025 , Expires: 05/05/2025 Start: 08-23-2024 End: 08-23-2024 Patient encounter procedure 08/23/2024 3:00 PM EST Routine [facility] [address] [place] [address] Wilber Stone, DO [address] [place] [address] [place] [address] [facility] Start: 08-16-2024 End: 08-16-2024 Patient encounter procedure 08/16/2024 3:30 PM EST Routine [facility] [address] [facility] [place] [phone] Wilber Stone, DO [address] [place] [address] [place] [address] [facility] Start: 08-16-2024 End: 08-16-2024 Professional / ancillary services management 08/16/2024 3:00 PM EST Ancillary Procedure [facility] [address] [place] [phone] [facility] Start: 08-11-2024 End: 08-11-2024 Patient encounter procedure 08/11/2024 3:20 PM EST Routine [facility] [address] [facility] [place] [address] Wilber Stone, DO [address] [place] [address] [place] [address] Arrived [facility] Comment on above: [...] PM EST Routine [facility] [address] [place] [phone] Wilber Stone DO [address] [place] [address] [facility] Start: 07-12-2024 End: 07-12-2024 Patient encounter procedure [facility] Comment on above: Arrived Start: 06-10-2024 End: 06-10-2024 Patient encounter procedure 06/10/2024 2:00 PM EST Routine [facility] [address] [place] [address] Judith Esquivel MD [address] [place] [address] [facility] Start: 06-10-2024 End: 06-10-2024 Professional / ancillary services management 06/10/2024 1:15 PM EST Ancillary Procedure [facility] [address] [place] [address] [facility] Start: 05-31-2024 End: 05-31-2024 Patient encounter procedure [facility] Comment on above: Arrived Start: 05-19-2024 End: 05-19-2024 Patient encounter procedure 05/19/2024 2:15 PM EST Routine [facility] [address] [place] [address] Judith Esquivel MD [address] [place] [address] [facility] Start: 05-19-2024 End: 05-19-2024 Professional / ancillary services management 05/19/2024 1:15 PM EST Ancillary Procedure [facility] [address] [place] [address] [facility] Start: 05-04-2024 End: 05-04-2024 Patient encounter procedure [facility] Comment on above: 24 weeks gestation o f ; Second trimester ; Poor weight gain (0-17); Nausea and vomiting, unspecified vomiting type; Screening for diabetes mellitus (DM) Start: 04-08-2024 End: 04-08-2024 Patient encounter procedure 04/08/2024 8:15 AM EDT Routine [facility] [address] [place] [phone] Judith Esquivel MD [address] [place] [address] 20 weeks gestation of ; Second trimester ; Poor weight gain (0-17) [facility] Comment on above: 20 weeks gestation o f ; Second trimester ; Poor weight gain (0-17) Start: 04-05-2024 End: 04-05-2024 Patient encounter procedure 04/05/2024 8:45 AM EDT Routine [facility] [address] [place] [address] Judith Esquivel MD [address] [place] [address] [facility] Start: 04-05-2024 End: 04-05-2024 Professional / ancillary services management 04/05/2024 8:00 AM EDT Ancillary Procedure [facility] [address] [place] [address] [facility] Start: 03-09-2024 End: 03-09-2025 Inheritest(R) Core Panel Inheritest(R) Core Panel Lab Routine care, subsequent in first trimester Screening for genetic disease carrier status Expected: 03/09/2024 (Approximate), Expires: 03/09/2025 [facility] Work Phone: Comment on above: Expected: 03/09/2024 (Approximate), Expires: 03/09/2025 Start: 03-09-2024 End: 03-09-2025 Maternity 21 Maternity 21 Lab Routine care, subsequent in first trimester Screening for genetic disease carrier status Expected: 03/09/2024 (Approximate), Expires: 03/09/2025 [facility] Comment on above: Expected: 03/09/2024 (Approximate), Expires: 03/09/2025 Start: 03-09-2024 End: 03-09-2024 Patient encounter procedure [facility] Comment on above: 16 weeks gestation o f ; Second trimester ; Poor weight gain (0-17); Nausea and vomiting, unspecified vomiting type Start: 02-29-2024 Influenza vaccination Influenza Vacc ine (#1) [facility] Start: 02-27-2024 End: 02-27-2024 Professional / ancillary services management 02/27/2024 8:00 AM EDT Ancillary Procedure [facility] [address] [phone] [facility] Start: 02-24-2024 End: 02-24-2024 Patient encounter procedure 02/24/2024 8:45 AM EDT Routine [facility] [address] [email or web address] [address] [place] [address] Judith Esquivel MD [address] [facility] [address] [place] [address] 14 weeks gestation of ; Second trimester [facility] Comment on above: 14 weeks gestation o f ; Second trimester Bacteria identified in Urine by Culture Urine culture Microbiology Routine 20 weeks gestation of Second trimester Leukocytes in urine Ordered: 04/08/2024 [facility] Work Phone: Comment on above: Ordered: 04/08/2024 Bacteria identified in Urine by Culture Urine culture Microbiology Routine 24 weeks gestation of Second trimester Leukocytes in urine Ordered: 05/04/2024 [facility] Comment on above: Ordered: 05/04/2024 Bacteria identified in Urine by Culture Urine culture Microbiology Routine Missed menses Ordered: 02/11/2025 [facility] Comment on above: Ordered: 02/11/2025 CBC W Auto Different ial panel - Blood CBC and differential Lab Routine Missed menses , unspecified gestational age ([facility]) Ordered: 02/11/2025 [facility] Comment on above: Ordered: 02/11/2025 Hemoglobin [Mass/volume] in Blood Hemoglobin and hematocrit, blood Lab Routine Screening for diabetes mellitus (DM) Ordered: 05/04/2024 [facility] Work Phone: Comment on above: Ordered: 05/04/2024 Hemoglobin A1c/Hemoglobin.total in Blood Hemoglobin A1c Lab Routine 34 weeks gestation of Ordered: 07/12/2024 [facility] Work Phone: Comment on above: Ordered: 07/12/2024 Hemoglobin A1c/Hemoglobin.total in Blood Hemoglobin A1c Lab Routine Missed menses , unspecified gestational age ([facility]) Ordered: 02/11/2025 [facility] Comment on above: Ordered: 02/11/2025 Hepatitis B virus surface Ag [Presence] in Serum or Plasma by Immunoassay Hepatitis B surface antigen Lab Routine Missed menses , unspecified gestational age ([facility]) Ordered: 02/11/2025 [facility] Comment on above: Ordered: 02/11/2025 Hepatitis C virus Ab [Presence] in Serum or Plasma by Immunoassay Hepatitis C antibody Lab Routine 34 weeks gestation of Ordered: 07/12/2024 [facility] Comment on above: Ordered: 07/12/2024 Hepatitis C virus Ab [Presence] in Serum or Plasma by Immunoassay Hepatitis C antibody Lab Routine Missed menses , unspecified gestational age ([facility]) Ordered: 02/11/2025 [facility] Comment on above: Ordered: 02/11/2025 HIV-1/HIV-2 antigen/antibody combination immunoassay HIV-1 and HIV-2 antibodies Lab Routine Missed menses , unspecified gestational age ([facility]) Ordered: 02/11/2025 [facility] Comment on above: Ordered: 02/11/2025 Measurement of gluco se 1 hour after glucose challenge for glucose tolerance test Glucose tolerance, 1 hour Lab Routine Screening for diabetes mellitus (DM) Ordered: 05/04/2024 [facility] Comment on above: Ordered: 05/04/2024 QHERIT(TM) EXPANDED CARRIER SCREEN QHERIT(TM) EXPANDED CARRIER SCREEN Lab Routine Screening for genetic disease carrier status Ordered: 02/02/2024 [facility] Comment on above: Ordered: 02/02/2024 QNATAL(R) ADVANCED QNATAL(R) ADV ANCED Lab Routine 18 weeks gestation of Screening for chromosomal anomalies by amniocentesis Ordered: 02/02/2024 [facility] Work Phone: Comment on above: Ordered: 02/02/2024 Reagin Ab [Presence] in Serum by RPR RPR Lab Routine Missed menses , unspecified gestational age ([facility]) Ordered: 02/11/2025 [facility] Comment on above: Ordered: 02/11/2025 Rubella antibody, IgG Rubella an tibody, IgG Lab Routine Missed menses , unspecified gestational age ([facility]) Ordered: 02/11/2025 [facility] Comment on above: Ordered: 02/11/2025 US Pelvis transvaginal US OB tra nsvaginal Imaging Routine Missed menses Positive urine test ([facility]) 02/11/2025 8:50 AM EDT [facility] Immunizations Immunization Date Immunization Notes Care Provider Katalina harper 05-15-2024 influenza virus vacc ine, unspecified formulation Bertha Reyna [facility] Payers Date Payer Category Payer [facility] [id number] 2023 Private Health Insurance [id number] 2020 [facility] BCBS [id number] 2020 Unknown BCBS BCBS [id number] 2020-Present [phone] [address] [place] [address] [id number] [id number] 2020 Unknown [id number] 1999 Unknown [id number] 2.16.840.1.215696.3.579. 2.1258 1999 Unknown [id number] 2.16840.1.150657.3.579. 2.1258 1999 Unknown [id number] 2.16840.1.821667.3.579. 2.1258 1999 Unknown [id number] 2.16840.1.476339.3.579. 2.1258 1999 Unknown [id number] 2.16840.1.374582.3.579. 2.1258 1999 Unknown [id number] 2.16840.1.601518.3.579. 2.1258 1999 Unknown [id number] 2.16840.1.336480.3.579. 2.1258 1999 Unknown [id number] 2.16.840.1.056448.3.579. 2.1258 1999 Unknown [id number] 2.16.840.1.222914.3.579. 2.1258 1999 Unknown [id number] 2.16.840.1.326211.3.579. 2.1258 1999 Unknown [id number] 2.16840.1.385122.3.579. 2.1258 1999 Unknown [id number] 2.16.840.1.710067.3.579. 2.1258 1999 Unknown [id number] 2.16840.1.889517.3.579. 2.1258 1999 Unknown [id number] 2.16840.1.090868.3.579. 2.1258 1999 Unknown [id number] 2.16840.1.276658.3.579. 2.1258 1999 Unknown [id number] 2.16840.1.427967.3.579. 2.1258 1999 Unknown [id number] 2.16840.1.503612.3.579. 2.1258 1999 Unknown [id number] 2.16840.1.610346.3.579. 2.1258 1999 Unknown [id number] 2.16840.1.751616.3.579. 2.1258 1999 Unknown [id number] 2.16840.1.610063.3.579. 2.1258 1999 Unknown [id number] 2.16840.1.157962.3.579. 2.7 1999 Unknown [id number] 2.16840.1.259499.3.579. 2.727 Unknown [id number] Social History Date Type Detail Facility Start: 01-09-2024 Tobacco smoking stat us NHIS Never smoked tobacco [facility] Start: 01-09-2024 Tobacco use and exposure Smokeless t obacco non-user [facility] Start: 01-09-2024 End: 02-11-2025 Alcoholic beverage intake Ex-drinker (finding) [facility] Start: 01-09-2024 End: 05-31-2024 History of Social function [facility] Start: 01-09-2024 End: 05-31-2024 Tobacco use panel [facility] Start: 01-09-2024 Alcohol Comment caffeine intak e: occasionally [facility] Start: 11-30-2023 [facility] Start: 1999 Sex assigned at Not on file [facility] Clinical Notes 02-02-2024 to 02-11-2025 Vanessa Gregg, MA - 02/11/2025 9:00 AM EDTSusan Spihedy, DESK INTERVIEWER - 09/30/2024 9:50 AM EDTSusadee Collier, [facility] - 08/16/2024 3:30 PM Reji Hernandez, [facility] - 08/11/2024 3:20 PM EST Note Date & Type Note Facility 02-11-2025 History of Presen t illness Narrative Reason for Appointment: Patient ID: Jamie Esquivel is a 24 y.o. female who presents for Amenorrhea Patient presents today for a Nurse OB Intake appointment. Patient is 7w2d with a Estimated Date of Delivery: 09/28/25 OB History Para Term AB Living 2 1 1 1 SAB IAB Ectopic Multiple Live Births 1 # Outcome Date GA Lbr Ezra/2nd Weight Sex Type Anes PTL Lv 2 Current 1 Term 08/17/24 39w2d 7 lb 12 oz F Vag-Spont ОЛЬГА Current Medications: has a current medication list which includes the following prescription(s): 19. Medical History: Active Ambulatory Problems Diagnosis Date Noted No Active Ambulatory Problems Resolved Ambulatory Problems Diagnosis Date Noted No Resolved Ambulatory Problems Past Medical History: Diagnosis Date Generalized anxiety disorder with panic attacks Vaccine for VZV (varicella-zoster virus) Family History Problem Relation Name Age of Onset Colon cancer Maternal Grandfather Genetic Disease Carrier Nephew sickle cell anemia Social History Tobacco Use Smoking status: Never Smokeless tobacco: Never Vaping Use Vaping status: Never Used Substance Use Topics Alcohol use: Not Currently Comment: caffeine intake: occasionally Drug use: Not Currently Types: Marijuana Comment: stopped a couple months prior to per patient Past Surgical History: Procedure Laterality Date WISDOM TOOTH EXTRACTION 2017 bottom, 2020 top No Known Allergies Vitals: Estimated body mass index is 30.85 kg/m as calculated from the following: Height as of 02/02/24: 5' 7 . Weight as of this encounter: 197 lb. BP: 120/74 Patient's last menstrual period was 12/13/2024. Assessment/Plan Diagnoses and all orders for this visit: Missed menses - US OB transvaginal; Future - Type and screen; Future - ABO/Rh; Future - CBC and differential - Hemoglobin A1c - RPR - Rubella antibody, IgG - Hepatitis B surface antigen - Hepatitis C antibody - HIV-1 and HIV-2 antibodies - Urine culture - POCT , urine manually resulted - POCT urinalysis dipstick manually resulted Positive urine test ([facility]) - US OB transvaginal; Future , unspecified gestational age ([facility] - Type and screen; Future - ABO/Rh; Future - CBC and differential - Hemoglobin A1c - RPR - Rubella antibody, IgG - Hepatitis B surface antigen - Hepatitis C antibody - HIV-1 and HIV-2 antibodies - Rapid drug screen, urine; Future Encounter for supervision of normal first in first trimester ([facility]) - Rapid drug screen, urine; Future Amenorrhea 7 weeks gestation of ([facility]) Nurse Note: Pt unsure of N[place]ater Billion to one. Pt was advised to make sure to do both labs together if decides to have N[place] done. [facility] will only do [place] if labs are being drawn together. PVU. Follow Up: Patient is to have labs drawn at directed and return to office for initial OB appointment with provider. Patient may call office as needed with any concerns or questions. Nurse Visit Completed by: Vanessa Gregg MA documented in this encounter [facility] 09-30-2024 History of Presen t illness Narrative Reason for Appointment: Patient ID: Jamie Esquivel is a 23 y.o. female who presents for Follow-up Patient presents today for Consult appointment. MEDICATIONS Current Outpatient Medications Medication Instructions [...] nursing note reviewed. Exam conducted with a peoplesoft analyst present. Vitals: Estimated body mass index is 31.7 kg/m as calculated from the following: Height as of 02/02/24: 5' 7 . Weight as of this encounter: 202 lb 6.4 oz. BP: 120/82 Patient's last menstrual period was 11/16/2023. ASSESSMENT & PLAN Patient presents today for 6 week post . Discussed patients concerns with periods and control. Patient voiced that she is scheduled with [facility] for mental health and patient does not desire to take any medications as she has been in counseling since younger & would like to get back to seeing someone in person for treatment. Patient will follow up for annual appointment and at that time can discuss any further options for control or she is able to call office if she desire to start sooner. Patient is currently breast feeding. Patient complaints of back pain. Patient is able to resume normal activity with physical activity and intercourse. Follow Up: Patient is to return for annual unless needed otherwise. Documented by Marcella Collier LPN on behalf of: Wilber Stone DO documented in this encounter [facility] 08-16-2024 History of Presen t illness Narrative [...] nursing note reviewed. Exam conducted with a peoplesoft analyst present. Vitals: Estimated body mass index is [...] Stone DO documented in this encounter [facility] 08-11-2024 History of Presen t illness Narrative [...] Date Generalized anxiety disorder with panic attacks ([facility]) Vaccine for VZV (varicella-zoster virus) HISTORY PAST [...] nursing note reviewed. Exam conducted with a peoplesoft analyst present. Vitals: Estimated body mass index is [...] Stone DO documented in this encounter [facility] 08-03-2024 History of Presen t [...] Stone DO documented in this encounter [facility] 07-26-2024 History of Presen t [...] nursing note reviewed. Exam conducted with a peoplesoft analyst present. Vitals: Estimated body mass index is [...] is 1cm dilated. Discussed car trip to [place] and labor and when not to travel. Patient declines to have Hepatitis C lab work drawn. Orders Placed This Encounter Procedures CULTURE, GROUP B STREP WITH SUSCEPTIBLITY POCT urinalysis dipstick manually resulted Follow Up: Patient is to return to office in 1 week for routine OB appointment Documented by Marcella Collier LPN on behalf of: Wilber Stone DO documented in this encounter [facility] 07-12-2024 History of Presen t [...] nursing note reviewed. Exam conducted with a peoplesoft analyst present. Vitals: Estimated body mass index is [...] Stone DO documented in this encounter [facility] 05-31-2024 History of Presen t illness Narrative Reason for Appointment: Patient ID: Jamie Esquivel is a 23 y.o. female who presents for [facility] Care Patient presents today for to meet [...] nursing note reviewed. Exam conducted with a peoplesoft analyst present. Vitals: Estimated body mass index is [...] Pt is deciding whether to come to [place] [facility]- advised pt if she wants to deliver with Dr Stone transfer to our office at 32 weeks. Pt voiced understanding. Documented by Jana Hernandez LPN on behalf of: Wilber Stone DO documented in this encounter [facility] 05-19-2024 History of Presen t [...] 38% Pt has had peds appt With [facility] The patient reports that her feet [...] program She has considered finding a pp refrigerating engineer, The patient inquires about collecting colostrum early and is advised to start at 35-36 weeks of . She is instructed not to engage in nipple stimulation as it can cause contractions and to look for passive collection cups for colostrum collection. The patient reports receiving her Tdap, COVID, and flu shots and plans to get her RSV shot at [facility]. Objective Physical Exam weight: 209 lb Expected [...] C to enhance absorption. 6. plan and refrigerating engineer: - Patient interested in natural and considering a pp refrigerating engineer - Plan: a) Discuss the benefits and [...] patient to get the RSV shot at [facility] as planned. Pt and wish to deliver with Dr Stone 9. Follow-up: - Dr Stone documented in this encounter [facility] 05-15-2024 History of Presen t illness Narrative Anwmia documented in this encounter [facility] 05-04-2024 History of Presen t [...] results found for: GLUF , GLUT1 , [id number] , [id number] Imaging The most recent ultrasound was performed [...] Tdap a couple of months ago at [facility]. b) RSV: Recommend receiving RSV vaccine at health department or Dr. Montes's practice before 28-30 weeks gestation. c) COVID and flu: Vaccines available as desired. d) Advise patient's partner to check with Dr. Montes about receiving RSV vaccine. 5. plan and provider concerns: - Plan: a) Encourage patient to schedule an appointment with Dr. Stone at [facility] to discuss plan and address concerns regarding [...] routine visit. documented in this encounter [facility] 04-08-2024 History of Presen t [...] 21 results documented in this encounter [facility] 03-09-2024 History of Presen t [...] on increasing protein intake as per the airplane patrol pilot's recommendations. - Plan: a) Encourage the patient [...] 4 weeks documented in this encounter [facility] 02-24-2024 History of Presen t [...] tired of them. 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 Note was [...] - Plan: a) Refer patient to a auto dismantler for nutritional counseling and meal planning. b) Encourage patient to consume breakfast and consider meal replacement options such as protein drinks. c) Monitor ketone levels in urine during follow-up visits. Zofran pump offered and pt does not wish 5. Work-related eating challenges: - Plan: a) Collaborate with the auto dismantler to develop strategies for eating during work [...] assess growth documented in this encounter [facility] 02-02-2024 History of Presen t [...] and Keflex ordered documented in this encounter [facility] Evaluation note Diagnosis 20 weeks gestation [...] gestation of [facility] Diagnosis 6 weeks follow-up [facility] Diagnosis Missed menses Positive urine test ([facility]) , unspecified gestational age ([facility]) Encounter for supervision of normal first in first trimester ([facility]) Amenorrhea Absence of menstruation 7 weeks gestation of ([facility]) [facility] Consultation (Routine) - Authorized Specialty Diagnoses / Procedures Referred By Kristen bland Referred To Contact Nutrition / Behavioral Health Diagnoses Poor weight gain (0-17) Procedures MD OFFICE/OUTPATIENT NEW HIGH MDM 60 MINUTES Judith Esquivel MD [address] [place] [address] Shauna Phelps, MS, RDN, LD, CHES [address] [place], [place] Referral ID Status Reason Start Date Expiration Date Visits Requested Visits Authorized [id number] Authorized Consult and Treat 02/24/2024 08/22/2024 1 1 [facility] Summary Purpose Family History No Family History Records FoundNo Family History Records Found Advance Directives No Advanced Directives Records FoundNo Advanced Directives Records Found Additional Source Comments Care Teams (unrecognized sec tion and content) Surgical Supervisor Relationship Specialty Start Date End Date Unallocated, Ricky Hernandez MD [address] [place] [address] [place] [address] PCP - General Family Medicine 01/09/24 Surgical Supervisor Relationship Specialty Start Date End Date Unallocated, Ricky Hernandez MD [address] [place] [address] [place] [address] PCP - General Family Medicine 01/09/24 Surgical Supervisor Relationship Specialty Start Date End Date Unallocated, MD Arun Angel [address] [facility] [place] [address] PCP - General Family Medicine 01/09/24 Surgical Supervisor Relationship Specialty Start Date End Date Unallocated, Ricky Hernandez MD [address] [place] [address] [place] [address] PCP - General Family Medicine 01/09/24 Surgical Supervisor Relationship Specialty Start Date End Date Unallocated, Noms Provider[place] [address] PCP - General Family Medicine 01/09/24 Surgical Supervisor Relationship Specialty Start Date End Date Unallocated, [place] [address] PCP - General Family Medicine 01/09/24 Surgical Supervisor Relationship Specialty Start Date End Date Unallocated, [place] [address] PCP - General Family Medicine 01/09/24 Surgical Supervisor Relationship Specialty Start Date End Date Unallocated, [place] [address] PCP - General Family Medicine 01/09/24 Surgical Supervisor Relationship Specialty Start Date End Date Unallocated, Ricky Hernandez [place] [facility] [place] [address] PCP - General Family Medicine 01/09/24 Surgical Supervisor Relationship Specialty Start Date End Date Unallocated, [place] [address] PCP - General Family Medicine 01/09/24 Surgical Supervisor Relationship Specialty Start Date End Date Unallocated, Ricky Hernandez [place] [facility] [place] [address] PCP - General Family Medicine 01/09/24 Surgical Supervisor Relationship Specialty Start Date End Date Unallocated, Ricky Hernandez [place] [facility] [place] [address] PCP - General Family Medicine 01/09/24 Surgical Supervisor Relationship Specialty Start Date End Date Unallocated, [place] [address] PCP - General Family Medicine 01/09/24 Surgical Supervisor Relationship Specialty Start Date End Date Unallocated, [place] [address] PCP - General Family Medicine 01/09/24 Surgical Supervisor Relationship Specialty Start Date End Date Unallocated, Ricky Hernandez MD [address] [place], [place] [address] [address] PCP - General [facility] Medicine 01/09/24 Surgical Supervisor Relationship Specialty Start Date End Date Unallocated, Ricky Hernandez MD [facility] [place] [address] PCP - General Family Medicine 01/09/24 Surgical Supervisor Relationship Specialty Start Date End Date Unallocated, Ricky Hernandez MD [facility] [place] [address] PCP - General [facility] 01/09/24 Surgical Supervisor Relationship Specialty Start Date End Date Unallocated, Ricky Hernandez MD [address] [place] [address] PCP - General [facility] Medicine 01/09/24 Reason for Visit (unrecogniz ed section and content) Reason Comments Establish Care Specialty Diagnoses / Procedures Referred By Contac t Referred To Contact Obstetrics and Gynecology Diagnoses Encounter for supervision of normal first , first trimester Procedures please check global maternity benefits [facility]C 08/22/24 Judith Esquivel MD [address] [place] [address] Judith Esquivel MD [address] [facility] [address] [place] [address] Referral ID Status Reason Start Date Expiration Date V isits Requested Visits Authorized [id number] Closed Other 01/12/2024 07/10/2024 1 1 Reason Comments Routine Visit Reason Comments Follow-up Reason Comments Amenorrhea INFORMATION SOURCE (unrecogn ized section and content) DATE CREATED AUTHOR 02/16/2025 [facility] EPIC DATE CREATED AUTHOR AUTHOR'S ORGANIZ ATION 03/04/2025 [facility] FOR RECORDS PERTAINING TO PATIENTS WHO ARE [...] BE BASED ON THE PRIMARY CLINICAL RECORDS. [facility] [employer] [facility]. provides no warranty or guarantee of the accuracy or completeness of information in this document.
[2025-03-10 17:15] LABS: Hematocrit 34.6 % (36.0-48.0); Hemoglobin 11.5 g/dL (12.0-16.0); Immature Granulocytes Abs Auto 0.01 10^3/uL (0.00-0.03); Immature Granulocytes Pct Auto 0.1 % (0.0-0.5); Lymphocytes Absolute Auto 3.8 10^3/uL (1.2-3.8); Mean Corpuscular HGB Conc 33.2 g/dL (29.9-35.2); Mean Corpuscular Hemoglobin 28.3 pg (26.7-34.0); Mean Corpuscular Volume 85.0 fL (81.0-99.0); Platelet Count 410 10^3/uL (150-450); Red Blood Count 4.07 10^6/uL (4.20-5.40); White Blood Count 10.4 10^3/uL (4.0-11.0)
[2025-03-10 17:26] LABS: Cannabinoid Screen Urine NEGATIVE (NEGATIVE); Methamphetamines Screen Urine NEGATIVE (NEGATIVE); Tricyclic Antidepressant Urine NEGATIVE (NEGATIVE)
[2025-03-12 07:07] LABS: Rubella Antibodies, IgG 1.74 index (Immune >0.99)
[2025-03-12 12:10] LABS: Rapid Plasma Reagin, Quant Non Reactive titer (NonRea<1:1)
== END 2025-03-10 16:24 | disposition home or self-care (01) ==
PROVIDERS: Visit Provider Obstetrics & Gynecology
DX: Z34.01 Encounter for supervision of normal first pregnancy, first trimester (principal); N92.6 Irregular menstruation, unspecified
CPT/HCPCS: 36415; 80307; 83036; 85025; 86592; 86762; 86803; 86850; 86900; 86901; 87086; 87340; 87389

== ENCOUNTER 2025-03-22 08:38 | Outpatient (OUT) | payer OTHER, BC, SELFPAY ==
--- OUTSIDE RECORDS SUMMARY | 2024-04-09 03:15 | XMS_ITS ---
Author Organization [facility] Address [address] [place] [address] Care Team Providers Care Broadcaster Name Role Phone Telma Montes Primary Care Provider [phone] Encounters Encounter Location Date Provider Diagnosis [facility] [address] [place] [address] 04/09/2024 Telma Montes Plan Of Treatment No Information Progress Notes * JAMIE ESQUIVELDOB:2000 (24 yo F)Acc No.[id number]:04/09/[address] Visit (non-FIM) Patient: Thalia JAMIE HODGES Provider: Monroe Montes :2000 A ge:23 Y S ex:Female Date:04/09/2024 Address:[address] [place], [id number] Subjective: * Chief Complaints: * * Medical History: Objective: * Vitals: Assessment: Plan: * Treatment: * Images: * Electronic signature of lJ Mnotes RD on 03/22/2025 at 08:46 AM EDT Sign off status: Pending * Provider: Monroe Montes Date: Generated for Corkyi ng/Faanng/eTransmitting on: 0 03/22/2025 08:46 AM EDT
--- OUTSIDE RECORDS SUMMARY | 2025-03-22 08:46 | XMS_ITS | Patient Health Record ---
Author Organization [employer] Address [address] [place] [address] Care Team Providers Care Tip Inserter Name Role Phone Telma Montes Primary Care Provider Reason For Referral No Information Plan Of Treatment No Information Insurance Providers Payer Name Payer Address Payer Phone Subscriber Number Group Number Insured Name Patient Relationship to Insured Coverage Start Date Coverage End Date ANTHEM Primary [address] [place] [address] [id number] JAMIE ESQUIVEL Self - patient is the insured 1
--- OUTSIDE RECORDS SUMMARY | 2025-03-22 08:48 | XMS_ITS | CCD ---
Author Organization [facility] Inform ion Partnership [facility] Care Team Providers Care Glaze Wiper Name Role Phone Unallocated , Noms Provider Primary Care Provi ga AURY Driver Attending Unavailable Quang Avitia Attending Unavailable BERTHA, GERARD Attending Unavailable BERTHA, GERARD Attending Unavailable BERTHA, GERARD Attending Unavailable BERTHA, GERARD Referring Unavailable BERTHA, GERARD Attending Unavailable BERTHA, GERARD Attending Unavailable DENIS ESQUIVEL P Attending Unavailable DENIS ESQUIVEL P Attending Unavailable SIERRA PENOLA P Attending Unavailable BERTHA, GERARD Attending Unavailable BERTHA, GERARD Attending Unavailable SIERRA PENOLA P Attending Unavailable BERTHA, GERARD Attending Unavailable Allergies Allergy Classification Reported Allergen(s) Allergy Type Date of Onset Reaction(s) Facility (1 source) No Known Medication Allergies; Translations: [No Known Medication Allergies] Propensity to adverse reactions (disorder) [facility] Repository Medications Current Medications Medication Drug Class(es) [...] chewable tablet Indications: 11 weeks gestation of ([facility]) , Encounter for supervision of normal first in first trimester ([facility]) Chew 1 tablet Daily Chewable, please [...] tablet 3 02/02/2024 02/02/2024 Discontinued (Therapy completed) ondansetron (Zof ran) 4 MG/5ML solution Take by mouth 1 (one) time Active Problems Active Problems Problem Classification Problem [...] supervision of normal , unspecified, second trimester] Onset: 03-14-2025 04-07-2024 Episodic Residual codes; unclassified (2 sources) [...] Reference Range Facility Urinalysis macro (dipstick) panel (U)Ordered By: Saloni Bowers on 03-14-2025 Bilirubin, UA Negative Negative - 4(70) +++ mg/dL [facility] Work Phone: Blood, UA Positive Negative - 50 Choco/mcL [facility] Work Phone: Clarity, UA Clear [facility] Work Phone: Color, UA Yellow [facility] Work Phone: Glucose, UA Negative Negative - 1999(110) ++++ mg/dL [facility] Work Phone: Interpretation and review of laboratory results Abnormal [facility] Work Phone: Ketones, UA Positive Negative - 160(16) ++++ mg/dL [facility] Work Phone: Leukocytes, UA Positive Negative - 500+++ Abhishek/mcL [facility] Work Phone: Nitrite, UA Negative Negative - Positive [facility] Work Phone: pH, UA 6 5 - 9 [facility] Work Phone: Protein, UA Positive Negative - 2000(20) ++++ mg/dL [facility] Work Phone: Spec Grav, UA 1.025 1 - 1.03 [facility] Work Phone: Urobilinogen, UA 1.0 0.2 - 12 mg/dL [facility] Work Phone: [facility] Work Phone: ALL CBC WITH AUTO DIFFon BASOPHILS ABSOLUTE AUTO 0 [facility] Basophils/100 WBC (Bld) 0.2 % 0.2 - 2.0 % [facility] Eosinophils/100 WBC (Bld) 0.7 % Low 0.9 - 7.0 % [facility] Erythrocyte distribution wid th (RBC) [Ratio] 12.4 % 11.0 - 15.0 % [facility] Hematocrit (Bld) [Volume fraction] 34.6 % Low 36.0 - 48.0 % [facility] Hemoglobin (Bld) [Mass/Vol] 11.5 g/dL Low 12.0 - 16.0 g/dL [facility] IMMATURE GRANULOCYTES ABS AUTO 0.01 [facility] Immature granulocytes/100 WB C (Bld) 0.1 % 0.0 - 0.5 % [facility] Interpretation and review of laboratory results Abnormal [facility] LYMPHOCYTES ABSOLUTE AUTO 3.8 [facility] Lymphocytes/100 WBC (Bld) 36.4 % 20 .5 - 60.0 % [facility] MCH (RBC) [Entitic mass] 28.3 pg 26. 7 - 34.0 pg [facility] MCHC (RBC) [Mass/Vol] 33.2 g/dL 29.9 - 35.2 g/dL [facility] MCV (RBC) [Entitic vol] 85 fL 81.0 - 99.0 fL [facility] MONOCYTES ABSOLUTE AUTO 0.7 [facility] Monocytes/100 WBC (Bld) 6.6 % 1.7 - 12.0 % [facility] NEUTROPHILS ABSOLUTE AUTO 5.8 [facility] Neutrophils/100 WBC (Bld) 56 % 43 .0 - 75.0 % [facility] Platelet mean volume (Bld) [Entitic vol] 9.4 fL Low 9.5 - 13.5 fL [facility] TBH EO # 0.1 [facility] TBH PLT 410 [facility] TB RBC 4.07 Low [facility] TB WBC 10.4 [facility] MLR HEMOGLOBIN A1Con 025 Glucose [Mass/Vol] 108 mg/dL [facility] HbA1c (Bld) [Mass fraction] 5.4 % 4.5 - 6. 2 % [facility] Comment on above: ADA RECOMMENDED LIMI T 4.0 - 6.0 ADA THERAPEUTIC TARGET < 7.0 ACTION SUGGESTED > 7.0 No Panel Informationon 03-10 [facility] DRUG SCREEN RAPID (URINE )on 03-10-2025 AMPHETAMINE SCREEN URINE Negative NEGATIVE [facility] BARBITURATES SCREEN URINE Negative NEGATIVE [facility] BENZODIAZEPINES SCREEN URINE Negative NEGATIV E [facility] BUPRENORPHINE SCREEN URINE Negative NEGATIVE [facility] Comment on above: DRUG CLASS TEST SYST EM CUT-OFF CONCENTRATIONS ARE FOLLOWS: AMP (Amphetamine): 500 ng/mL BAR (Barbiturates): 200 ng/mL BZO (Benzodiazepines): 150 ng/mL BUP (Buprenorphine): 10 ng/mL EZEQUIEL (Cocaine): 150 ng/mL mAMP (Methamphetamine): 500 ng/mL MTD (Methadone): 200 ng/mL OPI (Opiates): 100 ng/mL OXY (Oxycodone): 100 ng/mL PCP (Phencyclidine): 25 ng/mL THC (Cannabinoids): 50 ng/mL TCA (Trycyclic Antidepressants): 300 ng/mL CANNABINOID SCREEN URINE Negative NEGATIVE [facility] COCAINE SCREEN URINE Negative NEGATIVE [facility] METHADONE SCREEN URINE Negative NEGATIVE NO [facility] METHAMPHETAMINES SCREEN URINE Negative NEGATI VE [facility] OPIATE SCREEN URINE Negative NEGATIVE [facility] OXYCODONE SCREEN URINE Negative NEGATIVE NO [facility] PHENCYCLIDINE SCREEN URINE Negative NEGATIVE [facility] TRICYCLIC ANTIDEPRESSANT URINE Negative NEGAT [facility] Family Medicine Office/Clini c Noteon 03-02-2025 Family Medicine Office/Clini c Note Family Medicine Office/Clinic Note HPI Staff Brigette is a 24 year old female presenting with physical and wanting to establish *Former [facility] patient* wants to establish care today Patient is 10 weeks and sees Bertha... She sees him on March 14 Tomorrow she is getting labs @ [facility] She gets bad Morning sickness and [...] see Dr. Stone until 03/14. will send zofran to pharmacy. pt has many questions regarding [...] NAUSEA, # 30 tab(s), Refills(s) 1, Pharmacy: [facility]/pharmacy #[id number], 169, cm, 03/02/25 16:19:00 EDT, Height/Length [...] Family History Family history is negative Normal [facility] Comment on above: Result Comment: Elec tronically Signed By: Jessica Trinidad\.giuseppe\Date and Time Signed: 03/02/25 17:22 EDT HCG ( test) Ql (U)o n 02-11-2025 Interpretation and review of laboratory results Abnormal [facility] Preg Test, Ur Positive Negative [facility] OB TRANSVAGINALon 025 US OB TRANSVAGINAL FINDINGS: [...] UA Negative Negative - 4(70) +++ mg/dL [facility] Blood, UA Negative Negative - 50 Choco/mcL [facility] Clarity, UA Clear [facility] Color, UA Yellow [facility] Glucose, UA Negative Negative - 1999(110) ++++ mg/dL [facility] Interpretation and review of laboratory results Abnormal [facility] Ketones, UA Positive Negative - 160(16) ++++ mg/dL [facility] Leukocytes, UA 3+ Negative - 500+++ Abhishek/mcL [facility] Nitrite, UA Negative Negative - Positive [facility] pH, UA 6 5 - 9 [facility] Protein, UA Negative Negative - 1999(20) ++++ mg/dL [facility] Spec Grav, UA 1.02 1 - 1.03 [facility] Urobilinogen, UA 1.0 0.2 - 12 mg/dL [facility] Ambulatory Visit Summaryon 0 11-01-2024 Ambulatory Visit Summary Ambulatory Visi t Summary BRIGETTE ESQUIVEL :2000 Visit Date:11/01/2024 Ambulatory Visit Instructions [...] 4:00 PM EDT With: Jessica Trinidad Where: [address] [address]- Allergies No Known Medication Allergies Problems Ongoing - Any problem that you are currently receiving treatment for. BMI 32.0-32.9,adult Nonsmoker Obesity (BMI 30-39.9) Patient Survey You may receive a survey via text or e-mail asking about your office visit. Please share your experience with us by completing your survey. We appreciate your feedback and thank you for choosing us for your care. Normal [facility] Family Medicine Office/Clini c Noteon 11-01-2024 Family Medicine Office/Clini c Note Family Medicine Office/Clinic Note Chief Complaint Establish Care The patient presents with an unexplained rash that appeared overnight. HPI Staff Pt is a new pt, Here today to Establish Care: History: Any previous diagnosis: no History of seeing any specialist: no When was your last doctors visit: last year for wellness Last provider: [facility] Any recent labs: labs while Health Maintenance [...] -relate d changes. - Recent childbirth at [facility]. - Immunizations up-to-date. - COVID-19 vaccine administered [...] Family History Family history is negative Normal [facility] Comment on above: Result Comment: Elec tronically Signed By: Sadi VALADEZ, Quang Zuñiga\.br\Date and Time Signed: 11/01/24 14:59 EDT Urinalysis macro (dipstick) panel (U)on 09-30-2024 Bilirubin, UA Negative Negative - 4(70) +++ mg/dL [facility] Blood, UA Positive Negative - 50 Choco/mcL [facility] Comment on above: moderate Clarity, UA Clear [facility] Color, UA Yellow [facility] Glucose, UA Negative Negative - 1999(110) ++++ mg/dL [facility] Interpretation and review of laboratory results Abnormal [facility] Ketones, UA Negative Negative - 160(16) ++++ mg/dL [facility] Leukocytes, UA Positive Negative - 500+++ Abhishek/mcL [facility] Comment on above: small Nitrite, UA Negative Negative - Positive [facility] pH, UA 6 5 - 9 [facility] Protein, UA Negative Negative - 2000(20) ++++ mg/dL [facility] Spec Grav, UA 1.02 1 - 1.03 [facility] Urobilinogen, UA 0.2 0.2 - 12 mg/dL [facility] ALL CBC WITH AUTO DIFFon BASOPHILS ABSOLUTE AUTO 0.1 [facility] Basophils/100 WBC (Bld) 0.3 % 0.2 - 2.0 % [facility] Eosinophils/100 WBC (Bld) 0.1 % Low 0.9 - 7.0 % [facility] Erythrocyte distribution wid th (RBC) [Ratio] 13.9 % 11.0 - 15.0 % [facility] Hematocrit (Bld) [Volume fraction] 27.4 % Low 36.0 - 48.0 % [facility] Hemoglobin (Bld) [Mass/Vol] 9.3 g/dL Low 12.0 - 16.0 g/dL [facility] IMMATURE GRANULOCYTES ABS AUTO 0.19 High [facility] Immature granulocytes/100 WB C (Bld) 1.1 % High 0.0 - 0.5 % [facility] Interpretation and review of laboratory results Abnormal [facility] LYMPHOCYTES ABSOLUTE AUTO 2.7 [facility] Lymphocytes/100 WBC (Bld) 15.1 % Low 20 .5 - 60.0 % [facility] MCH (RBC) [Entitic mass] 29.3 pg 26. 7 - 34.0 pg [facility] MCHC (RBC) [Mass/Vol] 33.9 g/dL 29.9 - 35.2 g/dL [facility] MCV (RBC) [Entitic vol] 86.4 fL 81.0 - 99.0 fL [facility] MONOCYTES ABSOLUTE AUTO 1.4 High [facility] Monocytes/100 WBC (Bld) 7.9 % 1.7 - 12.0 % [facility] NEUTROPHILS ABSOLUTE AUTO 13.5 High [facility] Neutrophils/100 WBC (Bld) 75.5 % High 43 .0 - 75.0 % [facility] Platelet mean volume (Bld) [Entitic vol] 10 fL 9.5 - 13.5 fL [facility] EO # 0 [facility] TB PLT 303 [facility] RBC 3.17 Low [facility] TB WBC 17.9 High [facility] UA (CLEAN/CATCH) 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 YELLOW YELLOW [facility] GLUCOSE URINE UA Negative NEGATIVE mg/dL [facility] Interpretation and review of laboratory results Abnormal [facility] Ketones Ql (U) Negative NEGATIVE mg/dL [facility] Leukocyte esterase Test stri p Ql (U) LARGE Abnormal NEGATIVE [facility] NITRITE URINE Negative NEGATIVE [facility] pH (U) 6.5 [pH] 5.0 - 9.0 [facility] PROTEIN URINE Negative NEG/TRACE mg/dL [facility] SPECIFIC GRAVITY URINE 1.010 1.005 - 1.025 [facility] URINE MICROSCOPIC INDICATED YES [facility] UROBILINOGEN URINE 0.2 EU/dL 0.2 - 1.0 EU/dL [facility] US OB FOLLOW UP TRANSABDOMIN AL [...] 3601 gm / 7 lbs, 15 oz (1353-2431 gm) [place] Normal: 3488 gm (2527-8104 gm) [place] Wt%: 61% for 39.3 wks [...] UA Negative Negative - 4(70) +++ mg/dL [facility] Blood, UA Positive Negative - 50 Choco/mcL [facility] Comment on above: small Clarity, UA Clear [facility] Color, UA Yellow [facility] Glucose, UA Negative Negative - 2000(110) ++++ mg/dL [facility] Interpretation and review of laboratory results Abnormal [facility] Ketones, UA Negative Negative - 160(16) ++++ mg/dL [facility] Leukocytes, UA Positive Negative - 500+++ Abhishek/mcL [facility] Comment on above: small Nitrite, UA Negative Negative - Positive [facility] pH, UA 6.5 5 - 9 [facility] Protein, UA Negative Negative - 2000(20) ++++ mg/dL [facility] Spec Grav, UA 1.013 1 - 1.03 [facility] Urobilinogen, UA 0.2 0.2 - 12 mg/dL [facility] Urinalysis macro (dipstick) panel (U)on 08-03-2024 Bilirubin, UA Negative Negative - 4(70) +++ mg/dL [facility] Blood, UA Positive Negative - 50 Choco/mcL [facility] Comment on above: trace-intact Clarity, UA Clear [facility] Color, UA Yellow [facility] Glucose, UA Negative Negative - 1999(110) ++++ mg/dL [facility] Interpretation and review of laboratory results Abnormal [facility] Ketones, UA Positive Negative - 160(16) ++++ mg/dL [facility] Comment on above: trace Leukocytes, UA Positive Negative - 500+++ Abhishek/mcL [facility] Comment on above: large Nitrite, UA Negative Negative - Positive [facility] pH, UA 7 5 - 9 [facility] Protein, UA Positive Negative - 2000(20) ++++ mg/dL [facility] Comment on above: 30 Spec Grav, UA 1.02 1 - 1.03 [facility] Urobilinogen, UA 0.2 0.2 - 12 mg/dL [facility] ALL MISCELLANEOUS TESTon MISCELLANEOUS TEST COMMENT . [facility] Comment on above: Test Ordered: [id number] Strep Gp B Culture+Rflx Strep Gp B Culture+Rflx Positive [A ] CB Reference Range: Negative Centers for Disease Control and Prevention (CDC) and [place] [employer] Gynecologists (ACOG) guidelines [...] at high risk for anaphylaxis. Performed at: [facility] [id number] Dance Choreographer: Quoc Domínguez PhD, Phone: [phone] Group B Streptococcus Colonization Detection Culture With [facility] Urinalysis macro (dipstick) panel (U)on 07-26-2024 Bilirubin, UA Negative Negative - 4(70) +++ mg/dL [facility] Blood, UA Positive Negative - 50 Choco/mcL [facility] Clarity, UA Clear [facility] Color, UA Yellow [facility] Glucose, UA Negative Negative - 1999(110) ++++ mg/dL [facility] Interpretation and review of laboratory results Abnormal [facility] Ketones, UA Negative Negative - 160(16) ++++ mg/dL [facility] Leukocytes, UA Positive Negative - 500+++ Abhishek/mcL [facility] Nitrite, UA Negative Negative - Positive [facility] pH, UA 7 5 - 9 [facility] Protein, UA Trace Negative - 2000(20) ++++ mg/dL [facility] Spec Grav, UA 1.025 1 - 1.03 [facility] Urobilinogen, UA 0.2 0.2 - 12 mg/dL [facility] Urinalysis macro (dipstick) panel (U)on 07-12-2024 Bilirubin, UA Negative Negative - 4(70) +++ mg/dL [facility] Blood, UA Negative Negative - 50 Choco/mcL [facility] Clarity, UA Clear [facility] Color, UA Yellow [facility] Glucose, UA Negative Negative - 1999(110) ++++ mg/dL [facility] Interpretation and review of laboratory results Abnormal [facility] Ketones, UA Negative Negative - 160(16) ++++ mg/dL [facility] Leukocytes, UA Positive Negative - 500+++ Abhishek/mcL [facility] Nitrite, UA Negative Negative - Positive [facility] pH, UA 7 5 - 9 [facility] Protein, UA Positive Negative - 1999(20) ++++ mg/dL [facility] Spec Grav, UA 1.025 1 - 1.03 [facility] Urobilinogen, UA 0.2 0.2 - 12 mg/dL [facility] Urinalysis macro (dipstick) panel (U)Ordered By: Cathy Ferreira on 05-19-2024 Bilirubin, UA Negative Negative - 4(70) +++ mg/dL [facility] Blood, UA Negative Negative - 50 Choco/mcL [facility] Clarity, UA Clear [facility] Color, UA Yellow [facility] Glucose, UA Negative Negative - 1999(110) ++++ mg/dL [facility] Interpretation and review of laboratory results Abnormal [facility] Ketones, UA Negative Negative - 160(16) ++++ mg/dL [facility] Leukocytes, UA Positive Negative - 500+++ Abhishek/mcL [facility] Nitrite, UA Negative Negative - Positive [facility] pH, UA 7.5 5 - 9 [facility] Protein, UA Negative Negative - 1999(20) ++++ mg/dL [facility] Spec Grav, UA 1.01 1 - 1.03 [facility] Urobilinogen, UA 1.0 0.2 - 12 mg/dL [facility] Urinalysis macro (dipstick) panel (U)on 05-04-2024 Bilirubin, UA Negative Negative - 4(70) +++ mg/dL [facility] Blood, UA Negative Negative - 50 Choco/mcL [facility] Clarity, UA Clear [facility] Color, UA Yellow [facility] Glucose, UA Negative Negative - 1999(110) ++++ mg/dL [facility] Interpretation and review of laboratory results Normal [facility] Ketones, UA Negative Negative - 160(16) ++++ mg/dL [facility] Leukocytes, UA Positive Negative - 500+++ Abhishek/mcL [facility] Nitrite, UA Negative Negative - Positive [facility] pH, UA 8 5 - 9 [facility] Protein, UA Negative Negative - 1999(20) ++++ mg/dL [facility] Spec Grav, UA 1.005 1 - 1.03 [facility] Urobilinogen, UA 1.0 0.2 - 12 mg/dL [facility] Urinalysis macro (dipstick) panel (U)on 04-08-2024 Bilirubin, UA Negative Negative - 4(70) +++ mg/dL [facility] Blood, UA Negative Negative - 50 Choco/mcL [facility] Clarity, UA Clear [facility] Color, UA Yellow [facility] Glucose, UA Negative Negative - 1999(110) ++++ mg/dL [facility] Interpretation and review of laboratory results Abnormal [facility] Ketones, UA Negative Negative - 160(16) ++++ mg/dL [facility] Leukocytes, UA Positive Negative - 500+++ Abhishek/mcL [facility] Nitrite, UA Negative Negative - Positive [facility] pH, UA 8.5 5 - 9 [facility] Protein, UA Negative Negative - 1999(20) ++++ mg/dL [facility] Spec Grav, UA 1.015 1 - 1.03 [facility] Urobilinogen, UA 1.0 0.2 - 12 mg/dL [facility] Urinalysis macro (dipstick) panel (U)Ordered By: Cathy Ferreira on 03-09-2024 Bilirubin, UA Negative Negative - 4(70) +++ mg/dL [facility] Blood, UA Negative Negative - 50 Choco/mcL [facility] Clarity, UA Clear [facility] Color, UA Yellow [facility] Glucose, UA Negative Negative - 1999(110) ++++ mg/dL [facility] Interpretation and review of laboratory results Abnormal [facility] Ketones, UA Negative Negative - 160(16) ++++ mg/dL [facility] Leukocytes, UA Positive Negative - 500+++ Abhishek/mcL [facility] Nitrite, UA Negative Negative - Positive [facility] pH, UA 8.5 5 - 9 [facility] Protein, UA Negative Negative - 1999(20) ++++ mg/dL [facility] Spec Grav, UA 1.005 1 - 1.03 [facility] Urobilinogen, UA 1.0 0.2 - 12 mg/dL [facility] Urinalysis macro (dipstick) panel (U)on 02-24-2024 Bilirubin, UA Negative Negative - 4(70) +++ mg/dL [facility] Blood, UA Negative Negative - 50 Choco/mcL [facility] Clarity, UA Clear [facility] Color, UA Yellow [facility] Glucose, UA Negative Negative - 1999(110) ++++ mg/dL [facility] Interpretation and review of laboratory results Abnormal [facility] Ketones, UA Negative Negative - 160(16) ++++ mg/dL [facility] Leukocytes, UA Positive Negative - 500+++ Abhishek/mcL [facility] Nitrite, UA Negative Negative - Positive [facility] pH, UA 8.0 5 - 9 [facility] Protein, UA Negative Negative - 1999(20) ++++ mg/dL [facility] Spec Grav, UA 1.010 1 - 1.03 [facility] Urobilinogen, UA 1.0 0.2 - 12 mg/dL [facility] Laboratory - Cytologyon Wall Scraper Cyto stain Nom (Cvx/Vag) [ID] [facility] Comment on above: CMB, CT(ASCP) CT Scr eening Location: [facility], [address] [place] [address], [place] [address] Cytology study comment Cyto stain Saravanan (Cvx/Vag) [Interp] [facility] Comment on above: This Pap test has be en evaluated with computer assisted technology. Microscopic observation Cyto stain Nom (Cvx) [facility] Comment on above: Cytology Results: Ne gative for intraepithelial lesion or malignancy. Specimen source Cyto stain N om (Cvx/Vag) [facility] Comment on above: None given Statement of adequacy Cyto stain (Cvx/Vag) [Interp] [facility] Comment on above: Satisfactory for vicente luation. Endocervical/transformation zone component absent. Laboratory - Microbiology an d Antimicrobial susceptibilityon 02-03-2024 HPV E6+E7 mRNA NITHYA+probe Ql (Cvx) Not detected Not Detected [facility] Comment on above: Methodology: Transcr iption-Mediated Amplification This assay detects E6/E7 viral messenger RNA (mRNA) from 14 high-risk HPV types (16,18,31,33,35,39,45,51,52,56,58,59,66,68). Cervical sources are required for HPV testing. If a vaginal source from a patient who has had a total hysterectomy with removal of cervix was submitted, please contact the testing laboratory for alternative testing options. For additional information, please refer to [email or web address].Crystal [email or web address]/faq/CHQ656j0 (This link if provided for information/ educational purposes only.) No Panel Informationon 02-02 (ALWAYS MESSAGE) [facility] Comment on above: EXPLANATORY NOTE: The [...] None given Last menstrual period start date [facility] Comment on above: None given Performing Organization Information Site ID: [id number] Name: [employer] [facility] Address: [address] [place] [id number] Director: Ketan Sutherland MD [facility] Drugs of abuse panel Screen (U)on [...] [facility] Tricyclic antidepressants [Mass/Vol] Negative [facility] - Specimen inform ationon 02-02-2024 Specimen type Nom (Spec) swab [facility] No Panel Informationon 02-01 GONORRHOEAE DNA(PCR) Negative [facility] Interpretation and review of laboratory results Normal [facility] Urinalysis macro (dipstick) panel (U)Ordered By: Cathy Ferreira on 02-02-2024 Bilirubin, UA Negative Negative - 4(70) +++ mg/dL [facility] Blood, UA Negative Negative - 50 Choco/mcL [facility] Clarity, UA Clear [facility] Color, UA Yellow [facility] Glucose, UA Negative Negative - 2000(110) ++++ mg/dL [facility] Interpretation and review of laboratory results Abnormal [facility] Ketones, UA Positive Negative - 160(16) ++++ mg/dL [facility] Leukocytes, UA Positive Negative - 500+++ Abhishek/mcL [facility] Nitrite, UA Negative Negative - Positive [facility] pH, UA 6.5 5 - 9 [facility] Protein, UA Negative Negative - 2000(20) ++++ mg/dL [facility] Spec Grav, UA 1.025 1 - 1.03 [facility] Urobilinogen, UA 1.0 0.2 - 12 mg/dL [facility] Vital Signs Date Time Vital Sign Value Performing Clinician Faci [facility] 03-14-2025 15:52-0400 Body mass index (BMI) [Ratio] 30.04 kg/m2 [facility] [employer] Work Phone: [facility] 03-14-2025 15:52-0400 Body weight [address] [facility] [employer] Work Phone: [facility] 03-14-2025 15:52-0400 Diastolic blood pressure 72 mm[Hg] [facility] [employer] Work Phone: [facility] 03-14-2025 15:52-0400 Systolic blood pressure 102 mm[Hg] [facility] [employer] Work Phone: [facility] 02-11-2025 08:54-0400 Body mass index (BMI) [Ratio] 30.85 kg/m2 [facility] 02-11-2025 08:54-0400 Body weight 89.36 kg [facility] 02-11-2025 08:54-0400 Diastolic blood pressure 74 mm[Hg] [facility] 02-11-2025 08:54-0400 Systolic blood pressure 120 mm[Hg] Bertha Ob [facility] 09-30-2024 10:27-0400 Body mass index (BMI) [Ratio] 31.7 kg/m2 Gerard Bertha DO Work Phone: [facility] 09-30-2024 10:27-0400 Body weight 91.81 kg Gerard Bertha DO Work Phone: [facility] 09-30-2024 10:27-0400 Diastolic blood pressure 82 mm[Hg] Gerard Bertha DO Work Phone: [facility] 09-30-2024 10:27-0400 Systolic blood pressure 120 mm[Hg] Gerard Bertha DO Work Phone: [facility] 08-16-2024 16:07-0500 Body mass index (BMI) [Ratio] 36.81 kg/m2 Gerard Bertha DO Work Phone: [facility] 08-16-2024 16:07-0500 Body weight 106.59 kg Gerard Bertha DO Work Phone: [facility] 08-16-2024 16:07-0500 Diastolic blood pressure 70 mm[Hg] Gerard Bertha DO Work Phone: [facility] 08-16-2024 16:07-0500 Systolic blood pressure 122 mm[Hg] Gerard Bertha DO Work Phone: [facility] 08-11-2024 15:52-0500 Body mass index (BMI) [Ratio] 37.87 kg/m2 Gerard Bertha DO Work Phone: [facility] 08-11-2024 15:52-0500 Body weight 109.68 kg Gerard Bertha DO Work Phone: [facility] 08-11-2024 15:52-0500 Diastolic blood pressure 76 mm[Hg] Gerard Bertha DO Work Phone: [facility] 08-11-2024 15:52-0500 Systolic blood pressure 114 mm[Hg] Gerard Bertha DO Work Phone: [facility] 08-03-2024 15:17-0500 Body mass index (BMI) [Ratio] 36.4 kg/m2 Gerard Bertha DO Work Phone: [facility] 08-03-2024 15:17-0500 Body weight 105.42 kg Gerard Bertha DO Work Phone: [facility] 08-03-2024 15:17-0500 Diastolic blood pressure 74 mm[Hg] Gerard Berhta DO Work Phone: [facility] 08-03-2024 15:17-0500 Systolic blood pressure 110 mm[Hg] Gerard Bertha DO Work Phone: [facility] 07-26-2024 13:20-0500 Body mass index (BMI) [Ratio] 35.71 kg/m2 Gerard Bertha DO Work Phone: [facility] 07-26-2024 13:20-0500 Body weight 103.42 kg Gerard Bertha DO Work Phone: [facility] 07-26-2024 13:20-0500 Diastolic blood pressure 78 mm[Hg] Gerard Bertha DO Work Phone: [facility] 07-26-2024 13:20-0500 Systolic blood pressure 124 mm[Hg] Gerard Bertha DO Work Phone: [facility] 07-12-2024 14:28-0500 Body mass index (BMI) [Ratio] 35.08 kg/m2 Gerard Bertha DO Work Phone: [facility] 07-12-2024 14:28-0500 Body weight 101.61 kg Gerard Bertha DO Work Phone: [facility] 07-12-2024 14:28-0500 Diastolic blood pressure 74 mm[Hg] Gerard Bertha DO Work Phone: [facility] 07-12-2024 14:28-0500 Systolic blood pressure 122 mm[Hg] Gerard Bertha DO Work Phone: [facility] 05-19-2024 14:36-0500 Body mass index (BMI) [Ratio] 32.73 kg/m2 Denis Esquivel MD Work Phone: [facility] 05-19-2024 14:36-0500 Body weight 94.8 kg Denis Esquivel MD Work Phone: [facility] 05-19-2024 14:36-0500 Diastolic blood pressure 60 mm[Hg] Denis Esquivel MD Work Phone: [facility] 05-19-2024 14:36-0500 Systolic blood pressure 98 mm[Hg] Denis Esquivel MD Work Phone: [facility] 05-04-2024 16:26-0500 Body mass index (BMI) [Ratio] 32.42 kg/m2 Denis Esquivel MD Work Phone: [facility] 05-04-2024 16:26-0500 Body weight 93.89 kg Denis Esquivel MD Work Phone: [facility] 05-04-2024 16:26-0500 Diastolic blood pressure 58 mm[Hg] Denis Esquivel MD Work Phone: [facility] 05-04-2024 16:26-0500 Systolic blood pressure 100 mm[Hg] Denis Esquivel MD Work Phone: [facility] 04-08-2024 08:23-0400 Body mass index (BMI) [Ratio] 30.85 kg/m2 Denis Esquivel MD Work Phone: [facility] 04-08-2024 08:23-0400 Body weight 89.36 kg Denis Esquivel MD Work Phone: [facility] 04-08-2024 08:23-0400 Diastolic blood pressure 62 mm[Hg] Denis Esquivel MD Work Phone: [facility] 04-08-2024 08:23-0400 Systolic blood pressure 100 mm[Hg] Denis Esquivel MD Work Phone: [facility] 03-09-2024 08:53-0400 Body mass index (BMI) [Ratio] 29.76 kg/m2 Denis Esquivel MD Work Phone: [facility] 03-09-2024 08:53-0400 Body weight 86.18 kg Denis Esquivel MD Work Phone: [facility] 03-09-2024 08:53-0400 Diastolic blood pressure 60 mm[Hg] Denis Esquivel MD Work Phone: [facility] 03-09-2024 08:53-0400 Systolic blood pressure 100 mm[Hg] Denis Esquivel MD Work Phone: [facility] 02-24-2024 09:01-0400 Body mass index (BMI) [Ratio] 29.44 kg/m2 Denis Esquivel MD Work Phone: [facility] 02-24-2024 09:01-0400 Body weight 85.28 kg Denis Esquivel MD Work Phone: [facility] 02-24-2024 09:01-0400 Diastolic blood pressure 58 mm[Hg] Denis Esquivel MD Work Phone: [facility] 02-24-2024 09:01-0400 Systolic blood pressure 98 mm[Hg] Denis Esquivel MD Work Phone: [facility] 02-02-2024 13:15-0400 Body height 170.2 cm Denis Esquivel MD Work Phone: [facility] 02-02-2024 12:55-0400 Body mass index (BMI) [Ratio] 29.76 kg/m2 Denis Esquivel MD Work Phone: [facility] 02-02-2024 12:55-0400 Body weight 86.18 kg Denis Esquivel MD Work Phone: [facility] 02-02-2024 12:55-0400 Diastolic blood pressure 68 mm[Hg] Denis Esquivel MD Work Phone: [facility] 02-02-2024 12:55-0400 Systolic blood pressure 108 mm[Hg] Denis Esquivel MD Work Phone: [facility] Healthcare Encounters Encounter Date Encounter Type Care Provider Facility Start: 03-14-2025 End: 03-14-2025 flow sheet Gerard Bertha DO Work Phone: [facility] Comment on above: care, antep artum, unspecified ([facility]); First trimester ([facility]) Start: 03-14-2025 End: 03-14-2025 ambulatory GERARD BERTHA Not Available Start: 03-14-2025 End: 03-14-2025 Bamboo flowsheet Gerard Bertha DO Work Phone: [facility] Start: 03-14-2025 End: 03-14-2025 Bamboo flowsheet Gerard Bertha DO Work Phone: [facility] Start: 03-10-2025 End: 03-10-2025 Clinisync Result Encounter Gerard Bertha DO Work Phone: [facility] Unsolicited Start: 03-10-2025 End: 03-10-2025 Clinisync Result Encounter Gerard Bertha DO Work Phone: [facility] Unsolicited Start: 03-02-2025 End: 03-02-2025 ambulatory DRAMATIC COACH Jessica Driver Facility:[facility] [address] Start: 02-11-2025 End: 02-11-2025 Office outpatient visit 5 minutes Bertha Nurse [facility] Comment on above: GA: 7w2d Start: 02-11-2025 End: 02-11-2025 ambulatory GERARD BERTHA Not Available Start: 11-01-2024 End: 11-01-2024 ambulatory Quang Avitia [facility] Start: 09-30-2024 End: 09-30-2024 care visit Gerard Bertha DO Work Phone: [facility] Comment on above: 6 weeks f ollow-up Start: 09-30-2024 End: 09-30-2024 ambulatory GERARD BERTHA Not Available Start: 09-21-2024 ambulatory DRAMATIC COACH Jessica Villa Facilit y:[facility] Start: 08-19-2024 End: 08-19-2024 Clinisync Result Encounter Gerard Bertha DO Work Phone: [facility] Unsolicited Start: 08-19-2024 End: 08-19-2024 Clinisync Result Encounter Gerard Bertha DO Work Phone: [facility] Unsolicited Start: 08-17-2024 End: 08-17-2024 Clinisync Result Encounter Gerard Bertha DO Work Phone: [facility] Unsolicited Start: 08-17-2024 End: 08-17-2024 Clinisync Result Encounter Gerard Bertha DO Work Phone: [facility] Unsolicited Start: 08-16-2024 End: 08-16-2024 flow sheet Gearrd Bertha DO Work Phone: [facility] Comment on above: Third trimester preg leonie; 39 weeks gestation of Start: 08-16-2024 End: 08-16-2024 ambulatory GERARD BERTHA Not Available Start: 08-11-2024 End: 08-11-2024 flow sheet Gerard Bertha DO Work Phone: [facility] Comment on above: 38 weeks gestation o f ; Third trimester ; size inconsistent with dates Start: 08-11-2024 End: 08-11-2024 ambulatory GERARD BERTHA Not Available Start: 08-11-2024 End: 08-11-2024 Bamboo flowsheet Gerard Bertha DO Work Phone: [facility] Start: 08-11-2024 End: 08-11-2024 Bamboo flowsheet Gerard Bertha DO Work Phone: [facility] Start: 08-03-2024 End: 08-03-2024 flow sheet Gerard Bertha DO Work Phone: [facility] Comment on above: 37 weeks gestation o f ; Third trimester Start: 08-03-2024 End: 08-03-2024 ambulatory GERARD BERTHA Not Available Start: 08-03-2024 End: 08-03-2024 Bamboo flowsheet Gerard Bertha DO Work Phone: [facility] Start: 08-03-2024 End: 08-03-2024 Bamboo flowsheet Gerard Bertha DO Work Phone: [facility] Start: 07-26-2024 End: 07-26-2024 Bamboo flowsheet Gerard Bertha DO Work Phone: [facility] Start: 07-26-2024 End: 08-01-2024 Bamboo flowsheet Gerard Bertha DO Work Phone: [facility] Start: 07-26-2024 End: 08-01-2024 Clinisync Result Encounter Gerard Bertha DO Work Phone: [facility] Unsolicited Start: 07-26-2024 End: 07-26-2024 ambulatory GERARD BERTHA Not Available Start: 07-26-2024 End: 07-26-2024 flow sheet Gerard Bertha DO Work Phone: [facility] Comment on above: 36 weeks gestation o f ; Third trimester ; Need for hepatitis C screening test Start: 07-12-2024 End: 07-12-2024 Bamboo flowsheet Gerard Bertha DO Work Phone: [facility] Start: 07-12-2024 End: 07-12-2024 Bamboo flowsheet Gerard Bertha DO Work Phone: [facility] Start: 07-12-2024 End: 07-12-2024 flow sheet Gerard Bertha DO Work Phone: [facility] Comment on above: 34 weeks gestation o f ; Third trimester Start: 07-12-2024 End: 07-12-2024 ambulatory GERARD BERTHA Not Available Start: 06-28-2024 End: 06-28-2024 Bamboo flowsheet Mariya JIANG Work Phone: [facility] Start: 06-28-2024 End: 06-28-2024 Bamboo flowsheet Mariya JIANG Work Phone: [facility] Start: 06-10-2024 End: 06-10-2024 ambulatory DENIS ESQUIVEL Not Available Start: 06-10-2024 End: 06-10-2024 ambulatory GERARD BERTHA Not Available Start: 05-31-2024 End: 05-31-2024 Bamboo flowsheet Gerard Bertha DO Work Phone: [facility] Start: 05-31-2024 End: 05-31-2024 Bamboo flowsheet Gerard Bertha DO Work Phone: [facility] Start: 05-31-2024 End: 05-31-2024 flow sheet Gerard Bertha DO Work Phone: [facility] Comment on above: [facility]; 28 weeks gestation of ; Third trimester Start: 05-31-2024 End: 05-31-2024 ambulatory GERARD BERTHA Not Available Start: 05-19-2024 End: 05-19-2024 flow sheet Denis Esquivel MD Work Phone: [facility] Comment on above: 26 weeks gestation o f ; Second trimester ; Poor weight gain (0-17); Nausea and vomiting, unspecified vomiting type Start: 05-19-2024 End: 05-19-2024 ambulatory DENIS ESQUIVEL Not Available Start: 05-15-2024 End: 05-15-2024 Orders Only Denis Esquivel MD Work Phone: [facility] Comment on above: Anemia, unspecified type (Primary Dx) Start: 05-04-2024 End: 05-04-2024 flow sheet Denis Esquivel MD Work Phone: [facility] Comment on above: 24 weeks gestation o f ; Second trimester ; Poor weight gain (0-17); Nausea and vomiting, unspecified vomiting type; Screening for diabetes mellitus (DM); Leukocytes in urine Start: 05-04-2024 End: 05-04-2024 ambulatory DENIS ESQUIVEL Not Available Start: 05-04-2024 End: 05-04-2024 Bamboo flowsja Esquivel MD Work Phone: [facility] Start: 05-04-2024 End: 05-04-2024 Bamboo flowsja Esquivel MD Work Phone: [facility] Start: 04-08-2024 End: 04-08-2024 Bamboo flowsja Esquivel MD Work Phone: [facility] Start: 04-08-2024 End: 04-08-2024 Bamboo flowsja Esquivel MD Work Phone: [facility] Start: 04-08-2024 End: 04-08-2024 flow sheet Denis Esquivel MD Work Phone: [facility] Comment on above: 20 weeks gestation o f ; Second trimester ; Poor weight gain (0-17); Nausea and vomiting, unspecified vomiting type; Leukocytes in urine Start: 04-08-2024 End: 04-08-2024 ambulatory DENIS ESQUIVEL Not Available Start: 04-05-2024 End: 04-05-2024 ambulatory GERARD STONE Not Available Start: 03-09-2024 End: 03-09-2024 Bamboo flowsja Esquivel MD Work Phone: [facility] Start: 03-09-2024 End: 03-09-2024 Bamboo flowsja Esquivel MD Work Phone: [facility] Start: 03-09-2024 End: 03-09-2024 flow sheet Denis Esquivel MD Work Phone: [facility] Comment on above: Pyuria (Primary Dx); 16 weeks gestation of ; Second trimester ; Poor weight gain (0-17); Nausea and vomiting, unspecified vomiting type; care, subsequent in first trimester; Screening for genetic disease carrier status Start: 02-24-2024 End: 02-24-2024 Bamboo flowsheet Denis Esquivel MD Work Phone: [facility] Start: 02-24-2024 End: 02-24-2024 Bamboo flowsheet Denis Esquivel MD Work Phone: [facility] Start: 02-24-2024 End: 02-24-2024 flow sheet Denis Esquivel MD Work Phone: [facility] Comment on above: Poor weight gain (0- 17) (Primary Dx); 14 weeks gestation of ; Second trimester ; Ketonuria; Nausea and vomiting, unspecified vomiting type Start: 02-02-2024 End: 02-02-2024 Initial care visit Denis Esquivel MD Work Phone: [facility] Comment on above: GA: 11w1d Procedures Date Procedure Procedure Detail Performing Clinician Start: 03-14-2025 Urnls dip stick/tabl et rgnt non-auto w/o micrscp Gerard Bertha DO Work Phone: Start: 03-10-2025 ALL CBC WITH AUTO DIFF Gerard Bertha DO Work Phone: Start: 03-10-2025 MLR HEMOGLOBIN A1C Core y Bertha DO Work Phone: Start: 03-10-2025 TB DRUG SCREEN RAPI D (URINE) Gerard Bertha DO Work Phone: Start: 02-11-2025 Urnls dip stick/tabl et rgnt non-auto w/o micrscp Gerard Bertha DO Work Phone: Start: 09-30-2024 Urnls dip stick/tabl et rgnt non-auto w/o micrscp Gerard Bertha DO Work Phone: Start: 08-19-2024 ALL CBC WITH AUTO DIFF Gerard Bertha DO Work Phone: Start: 08-17-2024 TBH UA (CLEAN/CATCH) OIL HEATER INSTALLER/MICRO IF IND. Gerard Bertha DO Work Phone: Start: 08-16-2024 Urnls dip stick/tabl et rgnt non-auto w/o micrscp Gerard Bertha DO Work Phone: Start: 08-03-2024 Urnls dip stick/tabl et rgnt non-auto w/o micrscp Gerard Bertha DO Work Phone: Start: 07-26-2024 Urnls dip stick/tabl et rgnt non-auto w/o micrscp Gerard Bertha DO Work Phone: Start: 07-26-2024 ALL MISCELLANEOUS TEST Gerard Bertha DO Work Phone: Start: 07-12-2024 Urnls dip stick/tabl et rgnt non-auto w/o micrscp Gerard Bertha DO Work Phone: Start: 05-19-2024 Urnls dip stick/tabl et rgnt non-auto w/o micrscp Denis Esquivel MD Work Phone: Start: 05-04-2024 Urnls dip stick/tabl et rgnt non-auto w/o micrscp Denis Esquivel MD Work Phone: Start: 04-08-2024 Urnls dip stick/tabl et rgnt non-auto w/o micrscp Denis Esquivel MD Work Phone: Start: 03-09-2024 Urnls dip stick/tabl et rgnt non-auto w/o micrscp Denis Esquivel MD Work Phone: Start: 02-24-2024 Urnls dip stick/tabl et rgnt non-auto w/o micrscp Denis Esquivel MD Work Phone: Start: 02-02-2024 Chlamydia culture Olga Esquivel MD Work Phone: Start: 02-02-2024 Iadna chlamydia trac homatis amplified probe tq Denis Esquivel MD Work Phone: Start: 02-02-2024 Drug test prsmv read direct optical obs pr date Penola P Esquivel MD Work Phone: Start: 02-02-2024 Urnls dip stick/tabl et rgnt non-auto w/o micrscp Denis Esquivel MD Work Phone: Start: 02-02-2024 THINPREP TIS PAP AND HPV MRNA E6/E7 Denis Esquivel MD Work Phone: Plan of Treatment Date Care Activity Detail Author Start: 04-13-2025 End: 04-13-2025 Patient encounter procedure 04/13/2025 3:00 PM EDT Routine [facility] [facility] [address] [place] [id number] Gerard Stone DO [address] [place] [address] [facility] Start: 03-14-2025 End: 03-14-2025 Patient encounter procedure [facility] Comment on above: Arrived Start: 02-28-2025 Influenza vaccination Influenza Vacc ine (#1) [facility] Start: 02-11-2025 End: 02-11-2026 ABO/Rh ABO/Rh Lab Routine Missed menses , unspecified gestational age ([facility]) Expected: 02/11/2025 (Approximate), Expires: 02/11/2026 [facility] Comment on above: Expected: 02/11/2025 (Approximate), Expires: 02/11/2026 Start: 02-11-2025 End: 02-11-2026 Blood type and Indirect antibody screen panel - Blood Type and screen Lab Routine Missed menses , unspecified gestational age ([facility]) Expected: 02/11/2025 (Approximate), Expires: 02/11/2026 [facility] Comment on above: Expected: 02/11/2025 (Approximate), Expires: 02/11/2026 Start: 02-11-2025 End: 02-11-2026 Drugs of abuse panel - Urine by Screen method Rapid drug screen, urine Lab Routine , unspecified gestational age ([facility]) Encounter for supervision of normal first in first trimester ([facility]) Expected: 02/11/2025 (Approximate), Expires: 02/11/2026 [facility] Comment on above: Expected: 02/11/2025 (Approximate), Expires: 02/11/2026 Start: 02-03-2025 End: 02-03-2025 Patient encounter procedure 02/03/2025 9:20 AM EDT Office Visit [facility] [address] [place] [phone] Gerard Stone, [address] [place] [address] [facility] Start: 02-02-2025 End: 05-05-2025 US Pelvis transvaginal US OB transvaginal Imaging Routine Missed menses Positive urine test ([facility]) Expected: 02/02/2025, Expires: 05/05/2025 [facility] Work Phone: Comment on above: Expected: 02/02/2025 , Expires: 05/05/2025 Start: 08-23-2024 End: 08-23-2024 Patient encounter procedure 08/23/2024 3:00 PM EST Routine [facility] [address] [place] [phone] Gerard Stone, [address] [place] [address] [facility] Start: 08-16-2024 End: 08-16-2024 Patient encounter procedure 08/16/2024 3:30 PM EST Routine [facility] [address] [place] [phone] Gerard Stone, [address] [place] [address] [facility] Start: 08-16-2024 End: 08-16-2024 Professional / ancillary services management 08/16/2024 3:00 PM EST Ancillary Procedure [facility] [address] [place] [phone] [facility] Start: 08-11-2024 End: 08-11-2024 Patient encounter procedure 08/11/2024 3:20 PM EST Routine [facility] [address] [place] [phone] Gerard Stone, DO [address] [place] [address] Arrived [facility] Comment on above: [...] PM EST Routine [facility] [address] [place] [phone] Gerard Stone, DO [address] [place] [address] [facility] Start: 07-12-2024 End: 07-12-2024 Patient encounter procedure [facility] Comment on above: Arrived Start: 06-10-2024 End: 06-10-2024 Patient encounter procedure 06/10/2024 2:00 PM EST Routine [facility] [address] [place] [address] Denis Esquivel MD [address] [place] [address] [facility] Start: 06-10-2024 End: 06-10-2024 Professional / ancillary services management 06/10/2024 1:15 PM EST Ancillary Procedure [facility] [address] [place] [phone] [facility] Start: 05-31-2024 End: 05-31-2024 Patient encounter procedure [facility] Comment on above: Arrived Start: 05-19-2024 End: 05-19-2024 Patient encounter procedure 05/19/2024 2:15 PM EST Routine [facility] [address] [place] [phone] Denis Esquivel MD [address] [place] [address] [facility] Start: 05-19-2024 End: 05-19-2024 Professional / ancillary services management 05/19/2024 1:15 PM EST Ancillary Procedure [facility] [address] [place] [phone] [facility] Start: 05-04-2024 End: 05-04-2024 Patient encounter procedure [facility] Comment on above: 24 weeks gestation o f ; Second trimester ; Poor weight gain (0-17); Nausea and vomiting, unspecified vomiting type; Screening for diabetes mellitus (DM) Start: 04-08-2024 End: 04-08-2024 Patient encounter procedure 04/08/2024 8:15 AM EDT Routine [facility] [address] [place] [address] Denis Esquivel MD [address] [place] [address] 20 weeks gestation of ; Second trimester ; Poor weight gain (0-17) [facility] Comment on above: 20 weeks gestation o f ; Second trimester ; Poor weight gain (0-17) Start: 04-05-2024 End: 04-05-2024 Patient encounter procedure 04/05/2024 8:45 AM EDT Routine [facility] [address] [place] [phone] Denis Esquivel MD [address] [place] [address] [facility] [facility] Start: 04-05-2024 End: 04-05-2024 Professional / ancillary services management 04/05/2024 8:00 AM EDT Ancillary Procedure [facility] [address] [place] [id number] [facility] Start: 03-09-2024 End: 03-09-2025 Inheritest(R) Core Panel Inheritest(R) Core Panel Lab Routine care, subsequent in first trimester Screening for genetic disease carrier status Expected: 03/09/2024 (Approximate), Expires: 03/09/2025 [facility] Work Phone: Comment on above: Expected: 03/09/2024 (Approximate), Expires: 03/09/2025 Start: 03-09-2024 End: 03-09-2025 Maternity 21 Maternity 21 Lab Routine care, subsequent in first trimester Screening for genetic disease carrier status Expected: 03/09/2024 (Approximate), Expires: 03/09/2025 [facility] Comment on above: Expected: 03/09/2024 (Approximate), Expires: 03/09/2025 Start: 03-09-2024 End: 03-09-2024 Patient encounter procedure [facility] Comment on above: 16 weeks gestation o f ; Second trimester ; Poor weight gain (0-17); Nausea and vomiting, unspecified vomiting type Start: 02-29-2024 Influenza vaccination Influenza Vacc ine (#1) [facility] Start: 02-27-2024 End: 02-27-2024 Professional / ancillary services management 02/27/2024 8:00 AM EDT Ancillary Procedure [facility] [address] [place] [id number] [facility] Start: 02-24-2024 End: 02-24-2024 Patient encounter procedure 02/24/2024 8:45 AM EDT Routine [facility] [address] [place] [address] Denis Esquivel MD [address] [place] [address] 14 weeks gestation of ; Second trimester [facility] Comment on above: 14 weeks gestation o f ; Second trimester Bacteria identified in Urine by Culture Urine culture Microbiology Routine 20 weeks gestation of Second trimester Leukocytes in urine Ordered: 04/08/2024 [facility] Work Phone: Comment on above: Ordered: 04/08/2024 Bacteria identified in Urine by Culture Urine culture Microbiology Routine 24 weeks gestation of Second trimester Leukocytes in urine Ordered: 05/04/2024 [facility] Comment on above: Ordered: 05/04/2024 Bacteria identified in Urine by Culture Urine culture Microbiology Routine Missed menses Ordered: 02/11/2025 [facility] Comment on above: Ordered: 02/11/2025 CBC W Auto Different ial panel - Blood CBC and differential Lab Routine Missed menses , unspecified gestational age ([facility]) Ordered: 02/11/2025 [facility] Comment on above: Ordered: 02/11/2025 Hemoglobin [Mass/volume] in Blood Hemoglobin and hematocrit, blood Lab Routine Screening for diabetes mellitus (DM) Ordered: 05/04/2024 [facility] Work Phone: Comment on above: Ordered: 05/04/2024 Hemoglobin A1c/Hemoglobin.total in Blood Hemoglobin A1c Lab Routine 34 weeks gestation of Ordered: 07/12/2024 [facility] Work Phone: Comment on above: Ordered: 07/12/2024 Hemoglobin A1c/Hemoglobin.total in Blood Hemoglobin A1c Lab Routine Missed menses , unspecified gestational age ([facility]) Ordered: 02/11/2025 [facility] Comment on above: Ordered: 02/11/2025 Hepatitis B virus surface Ag [Presence] in Serum or Plasma by Immunoassay Hepatitis B surface antigen Lab Routine Missed menses , unspecified gestational age ([facility]) Ordered: 02/11/2025 [facility] Comment on above: Ordered: 02/11/2025 Hepatitis C virus Ab [Presence] in Serum or Plasma by Immunoassay Hepatitis C antibody Lab Routine 34 weeks gestation of Ordered: 07/12/2024 [facility] Comment on above: Ordered: 07/12/2024 Hepatitis C virus Ab [Presence] in Serum or Plasma by Immunoassay Hepatitis C antibody Lab Routine Missed menses , unspecified gestational age ([facility]) Ordered: 02/11/2025 [facility] Comment on above: Ordered: 02/11/2025 HIV-1/HIV-2 antigen/antibody combination immunoassay HIV-1 and HIV-2 antibodies Lab Routine Missed menses , unspecified gestational age ([facility]) Ordered: 02/11/2025 [facility] Comment on above: Ordered: 02/11/2025 Measurement of gluco se 1 hour after glucose challenge for glucose tolerance test Glucose tolerance, 1 hour Lab Routine Screening for diabetes mellitus (DM) Ordered: 05/04/2024 [facility] Comment on above: Ordered: 05/04/2024 QHERIT(TM) EXPANDED CARRIER SCREEN QHERIT(TM) EXPANDED CARRIER SCREEN Lab Routine Screening for genetic disease carrier status Ordered: 02/02/2024 [facility] Comment on above: Ordered: 02/02/2024 QNATAL(R) ADVANCED QNATAL(R) ADV ANCED Lab Routine 18 weeks gestation of Screening for chromosomal anomalies by amniocentesis Ordered: 02/02/2024 [facility] Work Phone: Comment on above: Ordered: 02/02/2024 Reagin Ab [Presence] in Serum by RPR RPR Lab Routine Missed menses , unspecified gestational age ([facility]) Ordered: 02/11/2025 [facility] Comment on above: Ordered: 02/11/2025 Rubella antibody, IgG Rubella an tibody, IgG Lab Routine Missed menses , unspecified gestational age ([facility]) Ordered: 02/11/2025 [facility] Comment on above: Ordered: 02/11/2025 US Pelvis transvaginal US OB tra nsvaginal Imaging Routine Missed menses Positive urine test ([facility]) 02/11/2025 8:50 AM EDT [facility] Immunizations Immunization Date Immunization Notes Care Provider Katalina harper 05-15-2024 influenza virus vacc ine, unspecified formulation Bertha Ob [facility] Payers Date Payer Category Payer Unknown [id number] 2023 Private Health Insurance [id number] 2023 Private Health Insurance [id number] 2020 [facility] BCBS Memb er Subscriber Plan / Payer (Effective 2020-Present) Name: Brigette Esquivel Relation to Subscriber: Child Name: GEORGE MAIN Date of : 1969 Address: [address] [place] [address] Payer ID: Not on file Type: Not on file Address: [address] [place] [phone] 2020 Unknown BCBS BCBS xxxxxx [id number] 2020-Present [phone] [address] [place] [address] [id number] 2020 Unknown [id number] 1999 Unknown [id number] 2.16.840.1.030534.3.579. 2.727 1999 Unknown [id number] 2.16.840.1.375057.3.579. 2.727 1999 Unknown [id number] 2.16.840.1.194334.3.579. 2.1258 1999 Unknown [id number] 2.16.840.1.724188.3.579. 2.1258 1999 Unknown [id number] 2.16.840.1.077868.3.579. 2.1258 1999 Unknown [id number] 2.16.840.1.136036.3.579. 2.1258 1999 Unknown [id number] 2.16.840.1.194774.3.579. 2.1258 1999 Unknown [id number] 2.16.840.1.223391.3.579. 2.1258 1999 Unknown [id number] 2.16.840.1.459547.3.579. 2.1258 1999 Unknown [id number] 2.16.840.1.206623.3.579. 2.1258 1999 Unknown [id number] 2.16.840.1.292294.3.579. 2.1258 1999 Unknown [id number] 2.16.840.1.685217.3.579. 2.1258 1999 Unknown [id number] 2.16.840.1.673926.3.579. 2.1258 1999 Unknown [id number] 2.16.840.1.435700.3.579. 2.1258 1999 Unknown [id number] 2.16.840.1.141615.3.579. 2.1258 1999 Unknown [id number] 2.16.840.1.417668.3.579. 2.1258 1999 Unknown [id number] 2.16.840.1.647004.3.579. 2.1258 1999 Unknown [id number] 2.16.840.1.521656.3.579. 2.12582000 Unknown [id number] 2.16.840.1.266570.3.579. 2.1259 1999 Unknown [id number] 2.16.840.1.064633.3.579. 2.1259 Social History Date Type Detail Facility [facility]: [facility] Start: 01-09-2024 [...] Sex assigned at Not on file N [facility] Clinical Notes 02-02-2024 to 03-14-2025 Martina Hernandez NP - 03/14/2025 3:20 PM Joby Gregg MA - 02/11/2025 9:00 AM Socorro Collier LPN - 09/30/2024 9:50 AM Socorro Collier LPN - 08/16/2024 3:30 PM EST Note Date & Type Note Facility 03-14-2025 History of Presen t illness Narrative Reason for Appointment: Patient ID: Brigette Esquivel is a 24 y.o. female who presents for Routine Visit and first trimester Patient presents today for Return OB appointment. MEDICATIONS Current Outpatient Medications Medication Instructions ondansetron (Zofran) 4 MG/5ML solution Once Vit-Fe Fumarate-FA ( 19) 29-1 MG chewable tablet 1 tablet, Oral, Daily, Chewable, please dispense what insurance will cover ALLERGIES No Known Allergies PROBLEMS Active Ambulatory Problems Diagnosis Date Noted care, antepartum ([facility]) 03/14/2025 First trimester ([facility]) 03/14/2025 Resolved Ambulatory Problems Diagnosis Date Noted No Resolved Ambulatory Problems Past Medical History: Diagnosis Date Generalized anxiety disorder with panic attacks Vaccine for VZV (varicella-zoster virus) HISTORY PAST MEDICAL HISTORY SOCIAL HISTORY Past Medical History: Diagnosis Date Generalized anxiety disorder with panic attacks Vaccine for VZV (varicella-zoster virus) Social History [...] nursing note reviewed. Exam conducted with a hands assembler present. Vitals: Estimated body mass index is 30.04 kg/m as calculated from the following: Height as of 02/02/24: 5' 7 . Weight as of this encounter: 191 lb 12.8 oz. BP: 102/72 Patient's last menstrual period was 12/13/2024. ASSESSMENT & PLAN ICD-10-CM 1. care, antepartum, unspecified ([facility]) Z34.90 POCT urinalysis dipstick manually resulted 2. First trimester ([facility]) Z34.91 POCT urinalysis dipstick manually resulted Return OB: Patient presents today for a routine obstetrics appointment. Patient is currently 11w5d . Patient states she is doing well but has complaints of being tired due to current . Patient has verbalizes frequent movement. labor precautions was discussed/given and patient was instructed to perform kick counts three times a day. Orders Placed This Encounter Procedures POCT urinalysis dipstick manually resulted Follow Up: Patient is to return to office in 4 week for routine OB appointment. Documented by Martina Hernandez NP on behalf of: Gerard Stone DO documented in this encounter [facility] 02-11-2025 History of Presen t illness Narrative Reason for Appointment: Patient ID: Brigette Esquivel is a 24 y.o. female who [...] calculated from the following: Height as of 8/5/24: 5' 7 . Weight as of this [...] urinalysis dipstick manually resulted Positive urine test ([facility]) - US OB transvaginal; Future , unspecified gestational age ([facility]) - Type and screen; Future - ABO/Rh; Future - CBC and differential - Hemoglobin A1c - RPR - Rubella antibody, IgG - Hepatitis B surface antigen - Hepatitis C antibody - HIV-1 and HIV-2 antibodies - Rapid drug screen, urine; Future Encounter for supervision of normal first in first trimester ([facility]) - Rapid drug screen, urine; Future Amenorrhea 7 weeks gestation of ([facility]) Nurse Note: Pt unsure of [place] Billion to one. Pt was advised to make sure to do both labs together if decides to have [place] done. [facility] will only do [place] if labs are being drawn together. PVU. Follow Up: Patient is to have labs drawn at directed and return to office for initial OB appointment with provider. Patient may call office as needed with any concerns or questions. Nurse Visit Completed by: Vanessa Gregg MA documented in this encounter [facility] 09-30-2024 History of Presen t illness [...] nursing note reviewed. Exam conducted with a hands assembler present. Vitals: Estimated body mass index is 31.7 kg/m as calculated from the following: Height as of 02/02/24: 5' 7 . Weight as of this encounter: 202 lb 6.4 oz. BP: 120/82 Patient's last menstrual period was 11/16/2023. ASSESSMENT & PLAN Patient presents today for 6 week post . Discussed patients concerns with periods and control. Patient voiced that she is scheduled with [facility] for mental health and patient does not [...] by Marcella Collier LPN on behalf of: Gerard Stone DO documented in this encounter [facility] 08-16-2024 History of Presen t illness [...] nursing note reviewed. Exam conducted with a hands assembler present. Vitals: Estimated body mass index is [...] by Marcella Collier LPN on behalf of: Gerard Stone DO documented in this encounter [facility] 08-11-2024 History of Presen t illness [...] nursing note reviewed. Exam conducted with a hands assembler present. Vitals: Estimated body mass index is [...] by Jana Hernandez LPN on behalf of: Gerard Stone DO documented in this encounter [facility] 08-03-2024 History of Presen t illness [...] Documented by APOLINAR Ford on behalf of: Gerard Stone DO documented in this encounter [facility] 07-26-2024 History of Presen t illness [...] nursing note reviewed. Exam conducted with a hands assembler present. Vitals: Estimated body mass index is [...] is 1cm dilated. Discussed car trip to [place] and labor and when not to travel. Patient declines to have Hepatitis C lab work drawn. Orders Placed This Encounter Procedures CULTURE, GROUP B STREP WITH SUSCEPTIBLITY POCT urinalysis dipstick manually resulted Follow Up: Patient is to return to office in 1 week for routine OB appointment Documented by Marcella Collier LPN on behalf of: Gerard Stone DO documented in this encounter [facility] 07-12-2024 History of Presen t illness [...] nursing note reviewed. Exam conducted with a hands assembler present. Vitals: Estimated body mass index is [...] by Marcella Collier LPN on behalf of: Gerard Stone DO documented in this encounter [facility] 05-31-2024 History of Presen t illness Narrative Reason for Appointment: Patient ID: Brigette Esquivel is a 23 y.o. female who presents for [facility] Patient presents today for to [...] nursing note reviewed. Exam conducted with a hands assembler present. Vitals: Estimated body mass index is 32.73 kg/m as calculated from the following: Height as of 02/01/24: 5' 7 . Weight as of 05/19/24: 209 lb. BP: Patient's last menstrual period was 11/16/2023. ASSESSMENT & PLAN ICD-10-CM 1. Encounter to establish care Z76.89 2. 28 weeks gestation of Z3A.28 3. Third trimester Z34.[address] Pt presents to meet [address] Stone, pt is 28 weeks at this time. All questions answered. Pt is deciding whether to come to [place] or [facility] for delivery- advised pt if she wants to deliver with Dr Stone transfer to our office at 32 weeks. Pt voiced understanding. Documented by Jana Hernandez LPN on behalf of: Gerard Stone DO documented in this encounter [facility] 05-19-2024 History of Presen t illness [...] 38% Pt has [facility]eds appt [facility] The patient reports that her feet [...] program She has considered finding a pp art dealer, The patient inquires about collecting colostrum early [...] C to enhance absorption. 6. plan and art dealer: - Patient interested in natural and considering a pp art dealer - Plan: a) Discuss the benefits and [...] - Dr Stone documented in this encounter [facility] 05-15-2024 History of Presen t illness Narrative Anwmia documented in this encounter [facility] 05-04-2024 History of Presen t illness [...] leave, as she does not qualify for [facility]. Objective Physical Exam weight: 207 lb Expected [...] results found for: GLUF , GLUT1 , [id number] , [id number] Imaging The most recent ultrasound was performed [...] Tdap a couple of months ago at [facility]. b) RSV: Recommend receiving RSV vaccine at health department or Dr. Montes's practice before 28-30 weeks gestation. c) COVID and flu: Vaccines available as desired. d) Advise patient's partner to check with Dr. Montes about receiving RSV vaccine. 5. plan and provider concerns: - Plan: a) Encourage patient to schedule an appointment with Dr. Stone at [facility] to discuss plan and address concerns [...] a routine visit. documented in this encounter [facility] 04-08-2024 History of Presen t illness [...] maternity 21 results documented in this encounter [facility] 03-09-2024 History of Presen t illness [...] on increasing protein intake as per the nursing home assistant administrator's recommendations. - Plan: a) Encourage the patient [...] undergoing Q- testing. - Plan: a) Order Q-Sydney testing and ensure the sample is sent [...] AUS 4 weeks documented in this encounter [facility] 02-24-2024 History of Presen t illness [...] grown tired of them. 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 Note was given [...] - Plan: a) Refer patient to a printing mechanist for nutritional counseling and meal planning. b) Encourage patient to consume breakfast and consider meal replacement options such as protein drinks. c) Monitor ketone levels in urine during follow-up visits. Zofran pump offered and pt does not wish 5. Work-related eating challenges: - Plan: a) Collaborate with the printing mechanist to develop strategies for eating during work [...] to assess growth documented in this encounter [facility] 02-02-2024 History of Presen t illness [...] and Keflex ordered documented in this encounter [facility] Evaluation note Diagnosis 20 weeks gestation [...] note* Diagnosis Missed menses Positive urine test ([facility]) , unspecified gestational age ([facility]) Encounter for supervision of normal first in first trimester ([facility]) Amenorrhea Absence of menstruation 7 weeks gestation of ([facility]) [facility] Diagnosis care, antepartum, unspecified ([facility]) First trimester ([facility]) state, incidental [facility]ative)* Consultation (Routine) - Authorized Specialty Diagnoses / Procedures Referred By Contac t Referred To Contact Nutrition / Behavioral Health Diagnoses Poor weight gain (0-17) Procedures [facility] OFFICE/OUTPATIENT NEW HIGH MDM 60 MINUTES Denis Esquivel MD [address] [place] [address] Mattie, Shauna, MS, RDN, LD, CHES [address] [place], [place] Referral ID Status Reason Start Date Expiration Date Visits Requested Visits Authorized [id number] Authorized Consult and Treat 02/24/2024 08/22/2024 1 1 [facility] Summary Purpose Family History No Family History Records FoundNo Family History Records Found Advance Directives No Advanced Directives Records FoundNo Advanced Directives Records Found Additional Source Comments Care Teams (unrecognized sec tion and content) Glaze Wiper Relationship Specialty Start Date End Date Unallocated, Christine Hernandez MD [address] [place] [id number] PCP - General Family Medicine 01/09/24 Glaze Wiper Relationship Specialty Start Date End Date Unallocated, Christine Hernandez MD [address] [place] [id number] PCP - General Family Medicine 01/09/24 Glaze Wiper Relationship Specialty Start Date End Date Unallocated, Christine Hernandez MD [address] [place] [address] [place] [address] PCP - General Family Medicine 01/09/24 Glaze Wiper Relationship Specialty Start Date End Date Unallocated, Christine Hernandez MD [address] [place] [address] [place] [address] PCP - General Family Medicine 01/09/24 Glaze Wiper Relationship Specialty Start Date End Date Unallocated, Christine Hernandez MD [address] [place] [address] [place] [address] PCP - General Family Medicine 01/09/24 Glaze Wiper Relationship Specialty Start Date End Date Unallocated, [place] [address] PCP - General Family Medicine 01/09/24 Glaze Wiper Relationship Specialty Start Date End Date Unallocated, [place] [address] PCP - General Family Medicine 01/09/24 Glaze Wiper Relationship Specialty Start Date End Date Unallocated, [place] [address] PCP - General Family Medicine 01/09/24 Glaze Wiper Relationship Specialty Start Date End Date Unallocated, [place] [address] PCP - General Family Medicine 01/09/24 Glaze Wiper Relationship Specialty Start Date End Date Unallocated, [place] [address] PCP - General Family Medicine 01/09/24 Glaze Wiper Relationship Specialty Start Date End Date Unallocated, [place] [address] PCP - General Family Medicine 01/09/24 Glaze Wiper Relationship Specialty Start Date End Date Unallocated, [place] [address] PCP - General Family Medicine 01/09/24 Glaze Wiper Relationship Specialty Start Date End Date Unallocated, [place] [address] PCP - General Family Medicine 01/09/24 Glaze Wiper Relationship Specialty Start Date End Date Unallocated, [place] [address] PCP - General Family Medicine 01/09/24 Glaze Wiper Relationship Specialty Start Date End Date Unallocated, [place] [address] PCP - General Family Medicine 01/09/24 Glaze Wiper Relationship Specialty Start Date End Date Unallocated, Christine Hernandez MD [facility] JUSTINA [facility]OMLINSON [facility] [place] [address] PCP - General Family Medicine 01/09/24 Glaze Wiper Relationship Specialty Start Date End Date Unallocated, Christine Hernandez MD [facility] [place] [address] PCP - General Family Medicine 01/09/24 Glaze Wiper Relationship Specialty Start Date End Date Unallocated, Christine Hernandez MD [facility] [place] [address] PCP - General Family Medicine 01/09/24 Glaze Wiper Relationship Specialty Start Date End Date Unallocated, Christine Hernandez MD [address] [place], [place] [address] [address] PCP - General Family Medicine 01/09/24 Reason for Visit (unrecogniz ed section and content) Reason Comments Establish Care Specialty Diagnoses / Procedures Referred By Kristen t Referred To Contact Obstetrics and Gynecology Diagnoses Encounter for supervision of normal first , first trimester Procedures please check global maternity benefits EDC 08/22/24 Denis Esquivel MD [address] [place] [address] Denis Esquivel MD [address] [place] [address] Referral ID Status Reason Start Date Expiration Date V isits Requested Visits Authorized [id number] Closed Other 01/12/2024 07/10/2024 1 1 Reason Comments Routine Visit Reason Comments Follow-up Reason Comments Amenorrhea Reason Comments Routine Visit first trimester INFORMATION SOURCE (unrecogn ized section and content) DATE CREATED AUTHOR 03/04/2025 [facility] DATE CREATED AUTHOR AUTHOR'S ORGANIZ ATION 03/15/2025 [facility] EPIC FOR RECORDS PERTAINING TO [...] BE BASED ON THE PRIMARY CLINICAL RECORDS. [facility] [employer] [facility]. provides no warranty or guarantee of the accuracy or completeness of information in this document.
--- NOTE | 2025-03-22 16:42 | PC.NURSE ---
Brigette and 7 mo daughter arrive for support. Brigette is currently nursing daughter, Reyna and slowly introducing foods. is [address] Stone sent her to for information about and . Disussed risks and benefits of nursing through a and then tandem nursing as well. Brigette is very interested in continuing to nurse and It is so important for Reyna Child appears content after feeding at breast and is interested in foods offered. Mom able to pump 5 oz of milk at a time at 13 weeks gestation. Previously able to pump 8-11 oz prior to . Information from Karissa Thompson and Christie Mom shared with Brigette as well as list of foods to introduce for Reyna. Brigette intends to continueto nurse as able and is aware may javi to supplement Reyna's diet at some point during the . No further questions at this time. Home ambulatory.
== END 2025-03-22 16:51 | disposition home or self-care (01) ==
LOC: FBCO 08:44
PROVIDERS: Visit Provider Obstetrics & Gynecology
DX: Z39.1 Encounter for care and examination of lactating mother (principal)

== ENCOUNTER 2025-06-15 20:23 | Outpatient (REF) | payer OTHER, BC, SELFPAY ==
--- OUTSIDE RECORDS SUMMARY | 2025-06-15 14:50 | XMS_ITS | Encounter Summary ---
Author Organization [facility] Address [address] [place] [address] Care Team Providers Care Bootmaker Name Role Phone Unallocated, Noms Provider Primary Care Provi ga Reason for Visit * ReasonCommentsRoutine Visit Encounter Details DateTypeDepartmentCare Team (Latest Contact Info)Xmmqejrdmaa23/17/2025 2:50 PM ESTRoutine [facility] [address] [phone] Gerard Stone DO [address] [place] [address] Second trimester ([facility]); 25 weeks gestation of ([facility]); Diabetes mellitus screening Social History Tobacco UseTypesPacks/DayYears UsedDateSmoking Tobacco: NeverSmokeless Tobacco: NeverAlcohol UseStandard Drinks/WeekCommentsNot Currently0 (1 standard drink = 0.6 oz pure alcohol)caffeine intake: occasionallyEstimated Date of IatuhlywZtwhwgyiTvp57/01/2026ased on UltrasoundSex and Gender InformationValue Date RecordedSex Assigned at BirthNot on fileLegal TjlKsckjv28/02/2024 1:09 PM EDTGender IdentityNot on fileSexual OrientationNot on fileOccupationIndustryJob Start DateJob End DateFamily Health ServicesNot on fileNot on fileNot on file documented as of this encounter Last Filed Vital Signs Vital SignReadingTime TakenCommentsBlood Qhduaged381/6006/15/2025 3:42 PM EST Pulse--Temperature--Respiratory Rate--Oxygen Saturation--Inhaled Oxygen Concentration--Ijgnbf63.3 kg (210 lb)06/15/2025 3:42 PM ESTHeight--Body Mass Index32.8908 1:15 PM EDTdocumented in this encounter Progress Notes * Jana Hernandez, OFFICE ADMINISTRATION - 06/15/2025 2:50 PM EST Reason for Appointment: Patient ID: Brigette López is a 24 y.o. female who presents for Routine Visit Patient presents today for Annual Exam., STD Check., and Return OB appointment. MEDICATIONS Current Outpatient Medications Medication Instructions ondansetron (Zofran) 4 MG/5ML solution Once Vit-Fe Fumarate-FA ( 19) 29-1 MG chewable tablet 1 tablet, Oral, Daily, Chewable, please dispense what insurance will cover ALLERGIES No Known Allergies PROBLEMS Active Ambulatory Problems Diagnosis Date Noted care, antepartum ([facility]) 03/14/2025 First trimester ([facility]) 03/14/2025 Resolved Ambulatory Problems Diagnosis Date [...] appearance. She is well-developed. Genitourinary: Vulva normal. Breasts: Breasts are soft. Right: Normal. Left: Normal. Cardiovascular: Rate and Rhythm: Normal rate and [...] nursing note reviewed. Exam conducted with a off track betting manager present. Vitals: Estimated body mass index is 32.89 kg/m?? as calculated from the following: Height as of 24: 5' 7 . Weight as of this encounter: 210 lb. BP: 110/60 Patient's last menstrual period was 12/13/2024. Assessment/Plan ICD-10-CM 1. Second trimester ([facility]) Z34.92 SURESWAB(R) ADVANCED VAGINITIS PLUS, TMA CHLAMYDIA TRACHOMATIS (GENITO/STI) Neisseria gonorrhea DNA probe, direct POCT urinalysis dipstick manually resulted Pap Smear 2. 25 weeks gestation of ([facility]) Z3A.25 3. Diabetes mellitus screening Z13.1 CBC Glucose tolerance, 1 hour CBC Glucose tolerance, 1 hour Assessment/Plan Return OB/Annual Exam: Patient presents today for a annual exam/routine obstetrics appointment. Patient is currently 77n4paouvalgf. Patient states she is doing well but has complaints of nausea in the morning. Pap and cultures was obtained without difficulty and patient was given orders for anatomy scan and msAFP to be obtained. Orders Placed This Encounter Procedures CHLAMYDIA TRACHOMATIS (GENITO/STI) Neisseria gonorrhea DNA probe, direct CBC Glucose tolerance, 1 hour POCT urinalysis dipstick manually resulted Follow Up: Patient is to schedule annual exam for next year and return to office in 4 weeks for OB appointment. Documented by Jana Hernandez LPN on behalf of: Gerard Stone DO documented in this encounter Plan of Treatment DateTypeDepartmentCare Team (Latest Contact Info)Vgqrdtrlddi66/12/2026 2:50 PM ESTRoutine [facility] [address] [place] [address] Geradr Stone DO [address] [place] [address] NameTypePriorityAssociated DiagnosesOrder ScheduleSURESWAB(R) ADVANCED VAGINITIS PLUS, TMAPathology and CytologyRoutine Second trimester ([facility]) Ordered: 06/15/2025HLAMYDIA TRACHOMATIS (GENITO/STI)LabRoutine Second trimester ([facility]) Ordered: 06/15/2025Neisseria gonorrhea DNA probe, directLabRoutine Second trimester ([facility]) Ordered: 06/15/2025Pap SmearPathology and CytologyRoutine Second trimester ([facility]) Ordered: 06/15/2025BCLabRoutine Diabetes mellitus screening Expected: 06/15/2025 (Approximate), Expires: 06/15/2026Glucose tolerance, 1 hour LabRoutine Diabetes mellitus screening Expected: 06/15/2025 (Approximate), Expires: 06/15/2026documented as of this encounter Procedures Procedure NamePriorityDate/TimeAssociated DiagnosisCommentsPOCT URINALYSIS ZQFRJQTRCrlrctt00/17/2025 3:45 PM EST Second trimester ([facility]) documented in this encounter Results * (ABNORMAL) POCT urinalysis dipstick manually resulted (06/15/2025 3:45 PM EST) ComponentValueRef RangeTest MethodAnalysis TimePerformed AtPathologist SignatureColor, UAYellowClarity, UAClearGlucose, UANegativeNegative - 2000(110) ++++ mg/dLBilirubin, UANegativeNegative - 4(70) +++ mg/dLKetones, UA NegativeNegative - 160(16) ++++ mg/dLSpec Grav, UA1.0101 - 1.03Blood, UA NegativeNegative - 50 Choco/mcLpH, UA6.55 - 9Protein, UATraceNegative - 2000(20) ++++ mg/dLUrobilinogen, UA1.00.2 - 12 mg/dLLeukocytes, UA1+Negative - 500+++ Abhishek/mcLNitrite, UANegativeNegative - PositiveSpecimen (Source)Anatomical Location / LateralityCollection Method / VolumeCollection TimeReceived Time Urine06/15/2025 3:45 PM EST Narrative Authorizing ProviderResult TypeResult StatusCorey Bertha DOPOINT OF CARE TEST ENTER/EDIT ORDERABLESFinal Result documented in this encounter Visit Diagnoses Diagnosis Second trimester ([facility]) state, incidental 25 weeks gestation of ([facility]) Diabetes mellitus screening Screening for diabetes mellitus documented in this encounter Care Teams Team MemberRelationshipSpecialtyStart DateEnd Date Unallocated, Noms Mary, [address] [place] [address] PCP - GeneralFamily Medicine01/09/24documented as of this encounter
--- OUTSIDE RECORDS SUMMARY | 2025-06-15 20:32 | XMS_ITS | Encounter Summary ---
Author Organization [facility] Address [address] [place] [address] Care Team Providers Care Diversified Crops Farmer Name Role Phone Unallocated, Noms Provider Primary Care Provi ga Encounter Details DateTypeDepartmentCare Team (Latest Contact Info)Ekeehhbveue87/17/2025amboo flowsheet CHRISTINE MONTANEZ [address] [place] [address] Gerard Stone DO [address] [place], [facility] Social History Tobacco UseTypesPacks/DayYears UsedDateSmoking Tobacco: NeverSmokeless Tobacco: NeverAlcohol UseStandard Drinks/WeekCommentsNot Currently0 (1 standard drink = 0.6 oz pure alcohol)caffeine intake: occasionallyEstimated Date of XptqmwqyQdhopzcoRht23/01/2026ased on UltrasoundSex and Gender InformationValue Date RecordedSex Assigned at BirthNot on fileLegal XfjIbtvgb51/02/2024 1:09 PM EDTGender IdentityNot on fileSexual OrientationNot on fileOccupationIndustryJob Start DateJob End DateFamily Health ServicesNot on fileNot on fileNot on file documented as of this encounter Plan of Treatment DateTypeDepartmentCare Team (Latest Contact Info)Idvtmgnimyz50/12/2026 2:50 PM ESTRoutine [facility] [address] [place] [address] Gerard Stone DO [address] [place] [address] documented as of this encounter Visit Diagnoses Not on filedocumented in this encounter Care Teams Team MemberRelationshipSpecialtyStart DateEnd Date Unallocated, Noms Provider, [place] [address] PCP - GeneralFamily Medicine01/09/24documented as of this encounter
--- OUTSIDE RECORDS SUMMARY | 2025-06-15 20:32 | XMS_ITS | Patient Health Record ---
Author Organization [employer] [facility] Address [address] [place] [address] Care Team Providers Care Cubing Machine Tender Name Role Phone Telma Montes Primary Care Provider Reason For Referral No Information Plan Of Treatment No Information Insurance Providers Payer Name Payer Address Payer Phone Subscriber Number Group Number Insured Name Patient Relationship to Insured Coverage Start Date Coverage End Date ANTHEM Primary [address] [place] [address] [id number] JAMIE ESQUIVELSelf - patient is the [id number] 2020
--- OUTSIDE RECORDS SUMMARY | 2025-06-15 20:32 | XMS_ITS | Clinical Summary ---
Author Organization [facility] Address [address] [place] [address] Care Team Providers Care Box Builder Name Role Phone Unallocated, Noms Provider Primary Care Provi ga Allergies No known active allergies Medications MedicationSigDispense QuantityRefillsLast FilledStart DateEnd DateStatus Vit-Fe Fumarate-FA ( 19) 29-1 MG chewable tablet Indications:11 weeks gestation of ([facility]),Encounter for supervision of normal first in first trimester ([facility])Chew 1 tablet Daily Chewable, please dispense what insurance will cover 90 tablet ctive ondansetron (Zofran) 4 MG/5ML solution Take by mouth 1 (one) timeActive Active Problems ProblemNoted DateDiagnosed DatePrenatal care, antepartum ([facility])03/14/2025 First trimester ([facility])03/14/2025Estimated Date of Delivery HmghtwnbPdl43/01/2026ased on Ultrasound Encounters DateTypeDepartmentCare YdxnXdlcgaztsno00/17/2025 2:50 PM ESTRoutine [facility] MONTANE[facility] [address] [place] [address] Gerard Stone DO Second trimester ([facility]); 25 weeks gestation of ([facility]); Diabetes mellitus rthgxzwbe28/17/2025amboo flowsheet [facility] [address] [place] [address] Gerard Stone DO 05/17/2025 1:50 PM ESTRoutine [facility] [address] [place] [phone] Gerard Stone DO Second trimester ([facility]); 20 weeks gestation of ([facility])05/17/2025 1:00 PM ESTAncillary Procedure [facility] [address] [place] [phone] 05/13/2025bstract [facility] [address] [place] [phone] Gerard Stone DO 04/13/2025 3:00 PM EDTRoutine [facility] M[facility] [address] [place] [address] Gerard Stone DO Well woman exam with routine gynecological exam; STD exposure; Second trimester ([facility]); 16 weeks gestation of ([facility]); Screening, , for anatomic survey ([facility])04/13/2025amboo flowsheet [facility] MONTANE[facility] [address] [place] [address] Gerard Stone DO from Last 3 Months Family History Medical HistoryRelationNameCommentsColon cancerMaternal GrandfatherGenetic Disease CarrierNephewsickle cell anemiaRelationNameStatusCommentsMaternal GrandfatherNephewAlive Social History Tobacco UseTypesPacks/DayYears UsedDateSmoking Tobacco: NeverSmokeless Tobacco: Never Tobacco Cessation:Counseling Given: Not Answered Alcohol UseStandard Drinks/WeekCommentsNot Currently0 (1 standard drink = 0.6 oz pure alcohol)caffeine intake: occasionallyEstimated Date of Delivery FohhifywGig60/01/2026Based on UltrasoundSex and Gender InformationValueDate RecordedSex Assigned at BirthNot on fileLegal QbxPwfozl57/02/2024 1:09 PM EDT Gender IdentityNot on fileSexual OrientationNot on fileOccupationIndustryJob Start DateJob End DateFahily Health ServicesNot on fileNot on fileNot on file Last Filed Vital Signs Vital SignReadingTime TakenCommentsBlood Cvfsznfi217/6006/15/2025 3:42 PM EST Pulse--Temperature--Respiratory Rate--Oxygen Saturation--Inhaled Oxygen Concentration--Kgyegh60.3 kg (210 lb)06/15/2025 3:42 PM GXBGyzcmj384.2 cm (5' 7 )02/02/2024 1:15 PM EDTBody Mass Index32.8902/02/2024 1:15 PM EDT Plan of Treatment DateTypeDepartmentCare Team (Latest Contact Info)Ijiusdchvxj30/12/2026 2:50 PM ESTRoutine [facility] [address] [place] [address] Gerard Stone DO [address], [place] [id number] Health MaintenanceDue DateLast DoneCommentsCOVID-19 Vaccine ( season) Influenza Vaccine (#1)4Pneumococcal Vaccine: Pediatrics (0 to 5 Years) and At-Risk Patients (6 to 64 Years)Aged Out No longer eligible based on patient's age to complete this topic Procedures Procedure NamePriorityDate/TimeAssociated DiagnosisCommentsPOCT URINALYSIS IDEOWCLHSxrcneu52/17/2025 3:45 PM EST Second trimester ([facility]) POCT URINALYSIS MGCSDDTKXyrztpe65/18/2025 2:31 PM EST 20 weeks gestation of ([facility]) US OB 14+ WEEKS ANATOMY ZEYJGjbzmoj00/18/2025 2:04 PM EST Screening, , for anatomic survey ([facility]) CULTURE, URINE, UMLDDRZQlwbxzj66/16/2025 8:49 AM EDT Missed menses POCT URINALYSIS QMVMVGKHDatvuot91/15/2025 3:27 PM EDT 16 weeks gestation of ([facility]) from Last 3 Months Results * (ABNORMAL) POCT urinalysis dipstick manually resulted (06/15/2025 3:45 PM EST) Only the most recent of3 resultswithin the time period is included. ComponentValueRef RangeTest MethodAnalysis TimePerformed AtPathologist Signature Color, UAYellowClarity, UAClearGlucose, UANegativeNegative - 2000(110) ++++ mg/dLBilirubin, UANegativeNegative - 4(70) +++ mg/dLKetones, UANegativeNegative - 160(16) ++++ mg/dLSpec Grav, UA1.0101 - 1.03Blood, UANegativeNegative - 50 Choco/mcLpH, UA6.55 - 9Protein, UATraceNegative - 2000(20) ++++ mg/dLUrobilinogen, UA1.00.2 - 12 mg/dLLeukocytes, UA1+Negative - 500+++ Abhishek/mcLNitrite, UANegative Negative - PositiveSpecimen (Source)Anatomical Location / LateralityCollection Method / VolumeCollection TimeReceived DmkuFadhv59/17/2025 3:45 PM EST Narrative Authorizing ProviderResult TypeResult StatusCorey Bertha DOPOINT OF CARE TEST ENTER/EDIT ORDERABLESFinal Result * US OB 14+ weeks anatomy scan (05/17/2025 2:04 PM EST)Anatomical Region LateralityModalityBodyUltrasoundSpecimen (Source)Anatomical Location / LateralityCollection Method / VolumeCollection TimeReceived Time05/18/2025 1:36 PM EST Impressions 05/18/2025 2:29 PM EST Single, live intrauterine , current sonographic age of 21 weeks and 0 days, with an estimated date of delivery of September 27, 2025. * ??Estimated Weight (g) by Percentile is based upon an accurate estimated age based onlast menstrual period. ?? TRANSCRIBED BY: ? ELECTRONICALLY SIGNED BY: Prabhakar Francois MD Narrative 05/18/2025 2:29 PM EST FINDINGS: A single, live intrauterine is present with normal cardiac rate of 152 beats per minute. Normal activity and amniotic fluid volume. Morphology is grossly normal (osseous structures of the lower lumbar spine appear normal). The cervix is long and closed, 3.9 cm. ??The placenta is anterior, Grade I, inferior margin 6.2 cm from the closed internal cervical os. ??The current sonographic age is 21 weeks and 0 days, based on the following measurements: ?BPD ? 4.9 cm (21 weeks, 0 days) ?Head Circumference ?18.3 cm (20 weeks, 4 days) ?Abdominal Circumference ?15.9 cm (21 weeks, 0 days) ?Femur Length ?3.6 cm (21 weeks, 3 days) ?Presentation ? Breech ?Placenta ? Anterior Grade I ? Weight (g) by Percentile ??59.0 % * These measurements result in an estimated date of delivery of September 27, 2025. ??The current estimated weight is 400 grams (0 pounds, 14 ounces). ?? Procedure Note Prabhakar Francois MD - 05/18/2025 FINDINGS: A single, live intrauterine is present with normal cardiacrate of 152 beats per minute. Normal activity and amniotic fluidvolume. Morphology is grossly normal (osseous structures of the lowerlumbar spine appear normal). The cervix is long and closed, 3.9 cm. Theplacenta is anterior, Grade I, inferior margin 6.2 cm from the closedinternal cervical os. The current sonographic age is 21 weeks and 0 days,based on the following measurements: BPD 4.9 cm (21 weeks, 0 days) Head Circumference 18.3 cm (20 weeks, 4 days) Abdominal Circumference 15.9 cm (21 weeks, 0 days) Femur Length 3.6 cm (21 weeks, 3 days) Presentation Breech Placenta Anterior Grade I Weight (g) by Percentile 59.0 % * These measurements result in an estimated date of delivery of August. The current estimated weight is 400 grams (0 pounds, 14ounces). IMPRESSION: Single, live intrauterine , current sonographic age of 21 weeksand 0 days, with an estimated date of delivery of September 27, 2025. * Estimated Weight (g) by Percentile is based upon an accurateestimated age based on last menstrual period. TRANSCRIBED BY: ELECTRONICALLY SIGNED BY: Prabhakar Francois MD Authorizing ProviderResult TypeResult StatusCorey Bertha MCNEIL OB US PROCEDURES Final Result * Urine culture (04/14/2025 8:49 AM EDT)Specimen (Source)Anatomical Location / LateralityCollection Method / VolumeCollection TimeReceived TimeUrineUrine specimen obtained by clean catch procedure / Unknown Narrative Authorizing ProviderResult TypeResult StatusCorey Bertha DOLAB MICROBIOLOGY - GENERAL ORDERABLESFinal ResultPerforming OrganizationAddressCity/State/ZIP Code Phone Number EXTERNAL LAB from Last 3 Months Insurance Care Teams Team MemberRelationshipSpecialtyStart DateEnd Date Unallocated, Noms Mary, [address] [place], [place] [phone] PCP - GeneralFamily Medicine01/09/24
[2025-06-20 09:08] LABS: Age Gdln ACOG Testing Note (.); IGP, rfx Aptima HPV ASCU Note (.)
== END 2025-06-15 20:24 | disposition home or self-care (01) ==
LOC: LAB 20:23
PROVIDERS: Visit Provider Obstetrics & Gynecology
DX: Z01.419 Encounter for gynecological examination (general) (routine) without abnormal findings (principal)
CPT/HCPCS: 88175